=== PATIENT | female | born 1995 | race Caucasian/White ===

== ENCOUNTER → 2019-02-06 15:40 | Outpatient (CLI) | payer BC, SELFPAY ==
[2019-02-06 18:59] LABS: Chlamydia Trachomatis by PCR Negative (Negative); Neisserai gonorrhoeae by PCR Negative (Negative); Specimen Processing Control PASS
[2019-02-06 19:00] LABS: Probe Check PASS; Sample Adequacy Control PASS
[2019-02-10 17:09] LABS: HPV Reflexed? NOT INDICATED
== END ==
PROVIDERS: Visit Provider Obstetrics & Gynecology
DX: Z12.4 Encounter for screening for malignant neoplasm of cervix (principal); Z11.3 Encounter for screening for infections with a predominantly sexual mode of transmission
CPT/HCPCS: 87491; 87591; 88175; G0145

== ENCOUNTER → 2019-02-23 11:13 | Outpatient (CLI) | payer BC, SELFPAY ==
[2019-02-23 13:51] LABS: Color, Urine Yellow (Yellow); Glucose, Dipstick Normal (Normal); Ketone-Dipstick Negative (Negative); Leukocyte Esterase-Dipstick 500 /ul (Negative); Nitrite-Dipstick Negative (Negative); Occult Blood-Urine Negative /ul (Negative); Protein-Dipstick Negative (Negative); Specific Gravity, Urine 1.005 (1.002-1.030); Urine Bilirubin Dipstick Negative (Negative); Urine Clarity Sl. Cloudy (Clear); Urine Urobilinogen Normal (Normal)
[2019-02-23 13:56] LABS: Absolute Lymphocyte Count 1.79 X10^3/ul (0.83-4.51); Absolute Neutrophil Count 5.2 X10^3/uL (2.0-7.7); Basophil# 0.01 X10^3/uL; Basophil% 0.1 % (0-1); Eosinophil# 0.12 X10^3/uL; Eosinophils% 1.5 % (0-5); Hematocrit 41.7 % (37-47); Hemoglobin 14.2 g/dl (12.0-15.0); Lymphocyte # 1.79 X10^3/ul (4.0); Lymphocyte % 22.3 % (19-41); Mean Corp Hgb Conc 34.1 g/gl (32-36); Mean Corpuscular Hgb 30.8 pg (27.0-32.0); Mean Corpuscular Volume 90.5 fL (81-99); Mean Platelet Vol. 9.5 fl (6.2-12.0); Monocyte# 0.84 X10^3/uL; Monocyte% 10.5 % (0-10); Neutrophil # 5.24 X10^3/uL (2.7-7.7); Neutrophil % 65.5 % (47-70); Platelet Count 213 K/mm3 (150-450); RBC Distribution Width CV 12.2 % (11.6-14.6); RBC Distribution Width SD 39.9 fl (35.1-43.9); Red Blood Count 4.61 M/mm3 (4.2-5.4)
[2019-02-23 14:01] LABS: POSITIVE COUNT NO; POSITIVE DIFFERENTIAL NO; POSITIVE MORPHOLOGY NO
[2019-02-23 14:11] LABS: Thyroid Stim Hormone (TSH) 0.99 uIU/mL (0.358-3.74)
[2019-02-23 14:30] LABS: Amphetamine Urine VISTA NEGATIVE (<1000 ng/mL); Barbiturate Urine VISTA NEGATIVE (< 200 ng/mL); Benzodiazepine Urine VISTA NEGATIVE (< 200 ng/mL); Cocaine Urine VISTA NEGATIVE (< 300 ng/mL); Ecstacy Urine VISTA NEGATIVE (< 500 ng/mL); Methadone Urine VISTA NEGATIVE (< 300 ng/mL); PCP Urine VISTA NEGATIVE (< 25 ng/mL); THC Urine VISTA NEGATIVE (< 50 ng/mL); Vista UDS pH Range 6
[2019-02-23 14:52] LABS: HIV - WCH Non-Reactive (Nonreactive); Rubella IgG 312.3 IU/mL
[2019-02-25 12:16] LABS: HEPATITIS B SURFACE AG Negative (Negative); Hep C Antibodies <0.1 s/co ratio (0.0-0.9); V-Zoster IgG (Immunity) 150 index (Immune >165)
[2019-02-27 03:40] LABS: Prenatal RPR NONREACTIVE (NONREACTIVE)
== END ==
PROVIDERS: Visit Provider Obstetrics & Gynecology
DX: Z34.81 Encounter for supervision of other normal pregnancy, first trimester (principal)
CPT/HCPCS: 36415; 80307; 81002; 84443; 85025; 86703; 86762; 86787; 86803; 87340

== ENCOUNTER → 2019-04-09 14:26 | Outpatient (CLI) | payer BC, SELFPAY ==
[2019-04-10 10:02] LABS: Kleihauer-Betke Negative
== END ==
PROVIDERS: Visit Provider Obstetrics & Gynecology
DX: Z34.82 Encounter for supervision of other normal pregnancy, second trimester (principal)
CPT/HCPCS: 85460

== ENCOUNTER → 2019-07-14 10:57 | Outpatient (CLI) | payer BC, SELFPAY ==
[2019-07-14 13:47] LABS: Hemoglobin 11.7 g/dL (12.0-15.0); Mean Corp Hgb Conc 33.4 g/dL (32-36); Mean Corpuscular Hgb 30.8 pg (27.0-32.0); Mean Corpuscular Volume 92.1 fL (81-99); Mean Platelet Vol. 9.7 fl (6.2-12.0); Platelet Count 190 K/mm3 (150-450); RBC Distribution Width CV 12.7 % (11.6-14.6); RBC Distribution Width SD 42.5 fl (35.1-43.9); White Blood Count 10.8 K/mm3 (4.4-11.0)
[2019-07-14 13:49] LABS: Glucose Challenge Gest 1H 50g 94 mg/dL (70-140)
== END ==
PROVIDERS: Visit Provider Obstetrics & Gynecology
DX: Z34.83 Encounter for supervision of other normal pregnancy, third trimester (principal)
CPT/HCPCS: 36415; 82950; 85027; 86850

== ENCOUNTER → 2019-09-08 09:38 | Outpatient (CLI) | payer BC, SELFPAY | PROVIDERS: Referring Provider Obstetrics & Gynecology; Visit Provider Obstetrics & Gynecology | DX: Z36.85 Encounter for antenatal screening for Streptococcus B (principal) | CPT/HCPCS: 87081 ==

== ENCOUNTER 2019-09-16 04:30 | Inpatient (IN) | payer BC, SELFPAY ==
[2019-09-16] MEDS: Lactated Ringers 1,000 ML 200 ML IV ×2 (05:06→10:06)
[2019-09-16 05:08] VITALS: BMI 25.9
[2019-09-16 05:23] LABS: Absolute Lymphocyte Count 1.65 X10^3/uL (0.83-4.51); Absolute Neutrophil Count 9.9 X10^3/uL (2.0-7.7); Basophil# 0.03 X10^3/uL; Basophil% 0.2 % (0-1); Eosinophil# 0.04 X10^3/uL; Eosinophils% 0.3 % (0-5); Hematocrit 35.4 % (37-47); Hemoglobin 12.5 g/dL (12.0-15.0); Lymphocyte # 1.65 X10^3/ul (4.0); Lymphocyte % 13.2 % (19-41); Mean Corp Hgb Conc 35.3 g/dL (32-36); Mean Corpuscular Hgb 31.6 pg (27.0-32.0); Mean Corpuscular Volume 89.6 fL (81-99); Mean Platelet Vol. 9.5 fl (6.2-12.0); Monocyte# 0.85 X10^3/uL; Monocyte% 6.8 % (0-10); NRBC Flagged by Analyzer 0 % (0-5); Neutrophil # 9.89 X10^3/uL (2.7-7.7); Neutrophil % 78.9 % (47-70); Platelet Count 145 K/mm3 (150-450); RBC Distribution Width CV 12.8 % (11.6-14.6); RBC Distribution Width SD 41.7 fl (35.1-43.9); Red Blood Count 3.95 M/mm3 (4.2-5.4); White Blood Count 12.5 K/mm3 (4.4-11.0)
[2019-09-16] MEDS: Lactated Ringers 500 ML 999 ML IV (05:56)
[2019-09-16] MEDS: fentaNYL-bupivacaine (epidural) 100 ML BAG EPIDURAL (06:42)
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
[2019-09-16] MEDS: Ondansetron 4 MG/2 ML Vial IV (13:27)
[2019-09-16] MEDS: Oxytocin 30 units/NS 500 ml 30 UNITS/500 ML IV.SOLN 334 UNITS IV (14:47)
--- NOTE | 2019-09-16 16:13 | PCM.OPRPT ---
Vaginal Delivery Maternal Presentation: Active Labor Presented to unit approx 0400 c/o contractions since 1800, becoming more intense at 0200, and SROM with clear fluid at 0300 Amniotic Membrane Rupture Type: Spontaneous at home Amniotic Fluid Description: Clear Final ROXANA: 10/01/19 Final ROXANA Source: US <20 weeks Gestational age: 37 Weeks and 6 Days Date of Procedure: 09/16/19 Pre-Operative Diagnosis: Active Labor Post-Operative Diagnosis: Surgery/ Procedure Performed: Spontaneous Vaginal Delivery Type of Anesthesia: Epidural Description of Procedure: CTSP when she was c/c/+2; pushed well to +3 station, then delivered a vigorous male infant over a R mediolateral episiotomy and L 2nd degree perineal laceration; shoulders followed easily with minimal maternal effort; placed on maternal abdomen, dried, stimulated, APGARS 8/9; cord clamped x 2 by CNM and cut by FOB; placenta delivered spontaneously, Jewels mechanism, intact, 3-vessel cord, central insertion; 2nd degree R mediolateral episiotomy and L 2nd degree perineal laceration repaired with 3-0 Vicryl Rapide, good hemostasis obtained; EBL 300 Lap sponge, Raytec, and instrument counts correct x 3 with RN Presentation: Vertex, LOP Placental Delivery Description: Spontaneous Placenta Disposition: [facility] Cord Vessel Description: 3 Vessels Cord Entanglement: None A gender: Male (1 minute): 8 (5 minute): 9 Episiotomy Description: Right Mediolateral Laceration: 2nd degree
--- NOTE | 2019-09-16 16:24 | DCINST_ITS ---
Discharge Diet: No Restrictions Discharge Activity: Return to Normal Activity, May Drive, May not drive while taking narcotic pain medications., May Shower, May Take a Tub Bath Return to work on:: 10/22/19 May resume sexual activity in: 6-8 weeks Weight Bearing Status: Weight bearing as tolerated Lifting Restrictions: Nothing heavier than the baby for two weeks Additional Activity Instructions:: No cooking, cleaning, shopping or long car trips for two weeks; try to get at least 8 hours sleep in 24 hours the first two weeks - sleep when the baby sleeps Call your doctor if your incision/area has: Continuous Slow Oozing, Sudden Increased Bleeding, Increased Pain/ Swelling, Foul Smelling Discharge Call your doctor if you observe: Fever of 101 or Higher, Numbness or Tingling, Inability to urinate, Inability to have a bowel movement, Using more than one pad per hour, Shortness of breath, Dizziness, Fainting spells, Swelling in the ankles, Chest pain, Increased palpitations (irregular heartbeat), Calf discomfort, Uncontrolled pain Additional Instructions: If you experience any of the following, contact your healthcare provider. * Bleeding that soaks a pad every hour for 2 hours * Fever 100.4 or higher * Unrelieved incision or abdominal pain * Swelling, redness, discharge or bleeding from your incision or episiotomy site * Your incision begins to separate * Problems urinating (including inability to urinate or burning while urinating). * Visual changes * Severe headache * Flu-like symptoms * Pain or redness in one of both of your breasts * Pain, warmth, tenderness or swelling in your legs, especially the calf area * Frequent nausea and vomiting * Symptoms of depression or anxiety If you experience any of the following, call 911 or go to the nearest Emergency Room. * Chest pain * Problems breathing * Seizure activity * Partial or complete paralysis of a body part, slurred speech, weakness or drooping of the face, or a sudden inability to walk or hold your balance Allergies/Adverse Reactions: Allergies No Known Allergies Allergy (Verified 09/16/19 05:08) Medications to take at Discharge Escitalopram Oxalate 10 mg PO DAILY 09/16/19 Vit No.130/Iron/Folic [ Tablet] 1 tab PO DAILY 09/16/19 Please Follow Up With: Emilie Jorge CNM When: In six weeks for checkup Primary Care Physician: Care Physician,No Primary [Primary Care Provider] - Test Results: Test results from this visit will be discussed in further detail at your follow- up appointment, if applicable.
--- NOTE | 2019-09-16 17:57 | PCM.PN.BLA ---
Progress Note This is a late entry for 09/16/2019 at 1300 S: Per RN, pt comfortable with epidural, spouse bedside and supportive O: AVSS FHTs: 135 baseline, moderate variability with variable declsx 1 minute x 1,then1, then 4.5 minutes x 1,then back to baseline with minimal variability UCs: Q 5 minutes per palpation per RN, difficult to trace Cervix: 8-9/90/-1 per RN A: Active labor, normal progress Cat 2 FHTs P: O2 per FM/LR bolus/position changes as needed When pt complete RN will have pt push and contact CNM w/progress or further changes in FHTs Anticipate vaginal delivery
--- NOTE | 2019-09-16 18:00 | NURSING ---
Epidural cath removed. blue tip intact
[2019-09-16] MEDS: Ibuprofen 600 MG Tablet PO (19:41)
[2019-09-16 21:00] VITALS: BP 92/51; PULSE 68; RESP 18; TEMP 37.1
[2019-09-16 23:45] VITALS: BP 98/47; PULSE 58; RESP 18; TEMP 36.6
[2019-09-16] MEDS: Acetaminophen 500 MG Tablet 1000 MG PO (23:49)
[2019-09-16] MEDS: Dibucaine 30 GM Tube 1 APPLIC TOPICAL (23:50)
[2019-09-17 05:30] VITALS: BP 107/61; PULSE 56; RESP 18; TEMP 36.3
[2019-09-17 06:18] LABS: Hematocrit 30.4 % (37-47); Hemoglobin 10.5 g/dL (12.0-15.0); Mean Corp Hgb Conc 34.5 g/dL (32-36); Mean Corpuscular Hgb 31.8 pg (27.0-32.0); Mean Corpuscular Volume 92.1 fL (81-99); Mean Platelet Vol. 9.4 fl (6.2-12.0); Platelet Count 146 K/mm3 (150-450); RBC Distribution Width CV 13.2 % (11.6-14.6); White Blood Count 13.5 K/mm3 (4.4-11.0)
[2019-09-17 08:20] VITALS: BP 90/43; PULSE 67; RESP 16; TEMP 36.4
[2019-09-17] MEDS: Ibuprofen 600 MG Tablet PO ×2 (08:20→16:12)
[2019-09-17 12:45] VITALS: BP 102/39; PULSE 68; RESP 16; TEMP 36.8
[2019-09-17 13:30] VITALS: BP 108/67
--- NOTE | 2019-09-17 13:45 | PCM.PROGNOTE ---
Subjective: Pain well controlled, tolerating diet, passing flatus, well; denies s/s depression, has adequate support at home and aware of resources should s/s exacerbate; spouse bedside and supportive Objective: AVSS Breasts soft, nipples atraumatic Fundus firm, midline, u/2, lochia small Perineal repair well approximated, no redness, drainage; mild edema noted - Physical Exam Vitals/I&O's: Vital Signs Temp Pulse Resp BP 97.6 F L 67 16 90/43 L 09/17/19 08:20 09/17/19 08:20 09/17/19 08:20 09/17/19 08:20 Oxygen Delivery Method Room Air Weight: 165 lb 6 oz Body Mass Index (BMI) 25.9 Intake and Output for Last 24 Hours 09/15/19 09/16/19 09/17/19 23:59 23:59 23:59 Intake Total 2833.34 / 2833.34 Output Total 2099 Balance 2833.34 / 2033.34 -2099 General: Alert, Oriented x3, Cooperative, No apparent distress HEENT: PERRLA, EOMI Oral: Moist Mucosa Neck: Supple Lungs: Clear to auscultation, Normal air movement Cardiovascular: Regular rate, Regular Rhythm Abdomen: Bowel Sounds Present, Soft, Non Tender, Non-Distended, Passing Flatus Extremities: No edema, Capillary Refill Less than 3 Seconds, No Calf Tenderness Skin: No rashes Musculoskeletal: No Tenderness to Palpation of Joints or Extremities Neurological: Cranial nerves II-XII grossly intact, Deep Tendon Reflexes 2+/4 and Symmetrical, Neuro grossly intact Psych/Mental Status: Normal Affect, Appropriate, Alert and oriented to time, place, person, mood and affect Laboratory Results 09/16/19 05:06: Antibody Identification ANTI-D 09/17/19 06:05: WBC 13.5 H, RBC 3.30 L, Hgb 10.5 L, Hct 30.4 L, MCV 92.1, MCH 31.8, MCHC 34.5, RDW Std Deviation 44.0 H, RDW Coeff of Valencia 13.2, Plt Count 146 L, MPV 9.4 09/17/19 06:05: Screen NEGATIVE, Baby's Blood Type O POSITIVE, Baby's JACKIE NEGATIVE Current Medications Acetaminophen (Tylenol) 1,000 mg PO Q8H PRN PRN PRN Reason: Pain Score 1-3/10 Last Admin: 09/16/19 23:49 Dose: 1,000 mg Documented by: Bisacodyl (Dulcolax) 10 mg RECTAL UD PRN PRN Reason: If no BM Dibucaine (Dibucaine) 1 applic TOPICAL TID PRN PRN; Protocol PRN Reason: Discomfort Last Admin: 09/16/19 23:50 Dose: 1 applicatio Documented by: Hydrocortisone (Hytone) 1 applic TOPICAL TID PRN PRN; Protocol PRN Reason: Discomfort Ibuprofen (Motrin) 600 mg PO Q6H PRN PRN PRN Reason: Pain Score 1-3/10 Last Admin: 09/17/19 08:20 Dose: 600 mg Documented by: Methylergonovine Maleate (Methergine) 0.2 mg IM X1 PRN PRN Reason: Excess bleeding/uterine atony Ondansetron HCl (Zofran) 4 mg IV Q4H PRN PRN PRN Reason: Nausea Oxycodone HCl (Oxyir) 5 - 10 mg PO Q4H PRN PRN PRN Reason: Pain Score 4-10/10 Senna/Docusate Sodium (Senokot-S, Mariana-Colace) 1 - 2 tablet PO DAILY PRN PRN PRN Reason: Constipation Simethicone (Mylicon) 80 mg PO PCHS PRN PRN Reason: Indigestion/Stomach pain Sodium Chloride () 5 - 15 ml IV UD PRN PRN Reason: SALINE FLUSH Medical Necessity - Tobacco Use Smoking Status: Never smoker Assessment/Plan Assessment: 24yo G1 now P1001 delivered at 37w6d gestation by L=8w4d PP Day #1, normal involution, normal course Depression well controlled, pt and family well informed as to s/s exacerbations an appropriate response Plan: Discharge teaching completed, focus on self care, warning signs, sarah. of depression Discharge home 24 hours p/delivery if remains stable RTO 6 weeks for PP checkup
[2019-09-17] MEDS: Senna/Docusate Sodium 1 Tablet PO (16:12)
[2019-09-17 17:00] VITALS: BP 92/68; PULSE 66; RESP 16; TEMP 36.4
== END 2019-09-17 18:25 | disposition home or self-care (01) | DRG 805 ==
PROVIDERS: Obstetrics & Gynecology; Admitting Provider Advanced Practice Midwife; Referring Provider Advanced Practice Midwife; Visit Provider Advanced Practice Midwife
DX: O70.1 Second degree perineal laceration during delivery (principal); O60.14X0 Preterm labor third trimester with preterm delivery third trimester, not applicable or unspecified; Z37.0 Single live birth; Z3A.37 37 weeks gestation of pregnancy; F32.9 Major depressive disorder, single episode, unspecified; O99.344 Other mental disorders complicating childbirth; F41.9 Anxiety disorder, unspecified
CPT/HCPCS: 59025; 59050; 85025; 85027; 85461; 86850; 86870; 86900; 86901; 90384; 99218; J7120; G0378; J2405; J2790

== ENCOUNTER → 2020-12-09 09:21 | Outpatient (CLI) | payer BC, SELFPAY ==
[2020-12-12 16:08] LABS: Chlamydia By Nucleic Acid AMP Negative (Negative)
[2020-12-12 18:01] LABS: Gonococcus By Nucleic Acid AMP Negative (Negative)
== END ==
PROVIDERS: Visit Provider Student in an Organized Health Care Education/Training Program
DX: Z11.3 Encounter for screening for infections with a predominantly sexual mode of transmission (principal)
CPT/HCPCS: 87491; 87591

== ENCOUNTER → 2021-01-12 13:46 | Outpatient (CLI) | payer BC, SELFPAY ==
[2021-01-12 16:32] LABS: Absolute Lymphocyte Count 3.15 X10^3/uL (0.83-4.51); Absolute Neutrophil Count 5.8 X10^3/uL (2.0-7.7); Basophil# 0.03 X10^3/uL; Basophil% 0.3 % (0-1); Eosinophil# 0.18 X10^3/uL; Eosinophils% 1.9 % (0-5); Hematocrit 36.9 % (37-47); Hemoglobin 13.1 g/dL (12.0-15.0); Lymphocyte # 3.15 X10^3/ul (4.0); Lymphocyte % 32.8 % (19-41); Mean Corp Hgb Conc 35.5 g/dL (32-36); Mean Corpuscular Hgb 32.3 pg (27.0-32.0); Mean Corpuscular Volume 90.9 fL (81-99); Mean Platelet Vol. 10.3 fl (6.2-12.0); Monocyte# 0.46 X10^3/uL; Monocyte% 4.8 % (0-10); NRBC Flagged by Analyzer 0 % (0-5); Neutrophil # 5.77 X10^3/uL (2.7-7.7); Platelet Count 245 K/mm3 (150-450); RBC Distribution Width CV 11.9 % (11.6-14.6); RBC Distribution Width SD 39.4 fl (35.1-43.9); Red Blood Count 4.06 M/mm3 (4.2-5.4); White Blood Count 9.6 K/mm3 (4.4-11.0)
[2021-01-12 16:50] LABS: Color, Urine Yellow (Yellow); Glucose, Dipstick Normal (Normal); Ketone-Dipstick Negative (Negative); Leukocyte Esterase-Dipstick 500 /ul (Negative); Nitrite-Dipstick Negative (Negative); Occult Blood-Urine Negative /ul (Negative); Protein-Dipstick Negative (Negative); Urine Bilirubin Dipstick Negative (Negative); Urine Clarity Clear (Clear); Urine Urobilinogen Normal (Normal)
[2021-01-12 16:55] LABS: Thyroid Stim Hormone (TSH) 0.81 uIU/mL (0.358-3.74)
[2021-01-13 09:36] LABS: HIV - WCH Non-Reactive (Nonreactive); Hepatitis B Surface Antigen Non-Reactive (Nonreactive); Hepatitis C Antibody Non-Reactive (Nonreactive); Rubella IgG Reactive (Nonreactive); Syphilis Antibodies Non-reactive
== END ==
PROVIDERS: Visit Provider Obstetrics & Gynecology
DX: Z34.81 Encounter for supervision of other normal pregnancy, first trimester (principal)
CPT/HCPCS: 36415; 81002; 84443; 85025; 86703; 86762; 86780; 86803; 87340

== ENCOUNTER → 2021-05-23 09:09 | Outpatient (CLI) | payer BC, SELFPAY ==
[2021-05-23 11:07] LABS: Hematocrit 34.7 % (37-47); Hemoglobin 11.7 g/dL (12.0-15.0); Mean Corp Hgb Conc 33.7 g/dL (32-36); Mean Corpuscular Hgb 31.2 pg (27.0-32.0); Mean Corpuscular Volume 92.5 fL (81-99); Mean Platelet Vol. 9.5 fl (6.2-12.0); Platelet Count 174 K/mm3 (150-450); RBC Distribution Width CV 12.8 % (11.6-14.6); RBC Distribution Width SD 42.9 fl (35.1-43.9); Red Blood Count 3.75 M/mm3 (4.2-5.4); White Blood Count 9.3 K/mm3 (4.4-11.0)
[2021-05-23 11:12] LABS: Glucose Challenge Gest 1H 50g 75 mg/dL (70-140)
== END ==
PROVIDERS: Visit Provider Obstetrics & Gynecology
DX: Z34.82 Encounter for supervision of other normal pregnancy, second trimester (principal)
CPT/HCPCS: 36415; 82950; 85027; 86850

== ENCOUNTER → 2021-07-10 12:26 | Outpatient (CLI) | payer BC, SELFPAY ==
--- NOTE | 2021-07-10 12:29 | VDLE_ITS ---
Reason For Study: Calf pain, 34 weeks RIGHT GSV is normal. CFV is compressible, spontaneous, phasic, competent and demonstrates normal augmentation. FV is compressible, spontaneous, phasic, competent and demonstrates normal augmentation. POP V is compressible, spontaneous, phasic, competent and demonstrates normal augmentation. T/P Trunk is compressible. PTV is compressible. RT PerV is compressible. Procedure This is a venous duplex using B-mode, color flow and spectral Doppler. Exam performed in department. A preliminary report was called and/or faxed to [facility]. VL/Venous Duplex US, Unilateral Interpretation Summary There is no evidence of right lower extremity deep vein thrombosis. Right great saphenous vein appears patent and compressible segmentally. Ordering Physician: Greg Landry Referring Physician: MD Fredy Nix Performed By: Marlyn Multani RVT
== END ==
PROVIDERS: PCP Family Medicine; Referring Provider Obstetrics & Gynecology; Visit Provider Obstetrics & Gynecology
DX: O26.893 Other specified pregnancy related conditions, third trimester (principal); M79.661 Pain in right lower leg; Z3A.34 34 weeks gestation of pregnancy
CPT/HCPCS: 93971

== ENCOUNTER → 2021-07-25 09:14 | Outpatient (CLI) | payer BC, SELFPAY | LOC: LABSPEC 09:15 | PROVIDERS: PCP Family Medicine; Visit Provider Student in an Organized Health Care Education/Training Program | DX: Z36.85 Encounter for antenatal screening for Streptococcus B (principal) | CPT/HCPCS: 87081 ==

== ENCOUNTER 2021-08-09 20:45 | Inpatient (IN) | payer BC, SELFPAY ==
[2021-08-09] VITALS (22 sets, daily range): BP systolic 105–157; BP diastolic 56–82; PULSE 56–84; TEMP 36.6–36.9; O2SAT 96–100; BMI 24.2
[2021-08-09] MEDS: Lactated Ringers 500 ML 999 ML IV (21:05)
[2021-08-09 21:09] LABS: Absolute Lymphocyte Count 2.53 X10^3/uL (0.83-4.51); Absolute Neutrophil Count 8.1 X10^3/uL (2.0-7.7); Basophil# 0.02 X10^3/uL; Basophil% 0.2 % (0-1); Eosinophil# 0.03 X10^3/uL; Eosinophils% 0.3 % (0-5); Hematocrit 35.8 % (37-47); Hemoglobin 12.6 g/dL (12.0-15.0); Lymphocyte # 2.53 X10^3/ul (0.83-4.51); Lymphocyte % 22.1 % (19-41); Mean Corp Hgb Conc 35.2 g/dL (32-36); Mean Corpuscular Hgb 31.6 pg (27.0-32.0); Mean Corpuscular Volume 89.7 fL (81-99); Mean Platelet Vol. 9.6 fl (6.2-12.0); Monocyte# 0.69 X10^3/uL; NRBC Flagged by Analyzer 0 % (0-5); Neutrophil # 8.09 X10^3/uL (2.7-7.7); Neutrophil % 70.8 % (47-70); Platelet Count 162 K/mm3 (150-450); RBC Distribution Width CV 12.9 % (11.6-14.6); RBC Distribution Width SD 42.1 fl (35.1-43.9); Red Blood Count 3.99 M/mm3 (4.2-5.4); White Blood Count 11.4 K/mm3 (4.4-11.0)
[2021-08-09] MEDS: Lactated Ringers 1,000 ML 50 ML IV (21:36)
--- NOTE | 2021-08-09 21:40 | HP.PCM_ITS ---
History and Physical Date of Admission: 08/09/21 ACOG ANTEPARTUM RECORD - HISTORY AND PHYSICAL (08/09/2021) Name: NICHOLE MONTEIRO History of this : This is a 26 year old [id number] presents at 39 wks + 0 days gestation in active labor. OB Physician: Blanca Haji 's Physician: Graham Beyer ...................................................................... : 1995 Age: 26 [address]: [address] [place] [address] Phone: H) [phone] Insurance Carrier: [employer] [id number] Emergency Contact: YARELIS DANE [phone] ...................................................................... Final ROXANA: 08/16/21 By Ultrasound: 6 weeks 0 days PARITY: (G-Total Pregnancies P-Fullterm,Premature,Induced AB,Spont AB, Ectopics, Multiple,Living) ROXANA CONFIRMATION: By LMP: 10/04/21 By First Ultrasound Exam: 08/16/21 Final ROXANA: 08/16/21 OB PROBLEM LIST: Declines genetic and carrier screening Left renal pelviectasis , Resolved O-NEG Plans epidural. Plans to breastfeed. Takes Lexapro. Hx anxiety/depression. Watch for PPD. ALLERGIES: No Known Drug Allergies MEDICATIONS: escitalopram 10 mg tablet 1 daily ondansetron 4 mg disintegrating tablet As Directed 1 tab po Q 6 hours PRN nausea 28 mg-800 mcg tablet daily SOCIAL HISTORY: Smoking - Never Alcohol Use - denies drinking Diet - balanced Diet Lifestyle - moderate stress lifestyle and Exercise - Reg. 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 Place of - [place], [place] Hours Worked - 45-50 Spouse-Sig Other Name - Yarelis Monteiro Spouse-Sig Other Occupation - [employer]- [employer] sales. Spouse-Sig Other Phone No - [phone] Children Name(s) - Angelo ('19) PRIOR DELIVERY HISTORY DEL DATE GEST LAB WT LB WT OZ TYPE ANES LABOR TX 27 Sep 08 37 12 7 2 Vag Epidural No ANTEPARTUM FLOW CHART VISIT RTC FU F F CT U U DATE WK MD WKS HT PN HR M SS BP ED WT CT GL D EF ST __ ____ ___ __ __ ___ __ __ __ ___ __ __ __ ___ __ Jul JMW 1 37 V + + 124/78 0 159 - - 4 75 -2 12 Jul JM 1 37 V + + 110/74 0 158 - - 05 Jul 36 CM 1 36 V + + 104/62 0 160 - - 28 Jun 35 JM 1 35 V + + 104/68 0 159 - - 14 Jun 33 JM 2 33 V + + 118/62 0 160 ne ne Jun 20 JM + 112/58 0 156 ne ne 17 Jun 18 JM 3 + 94/58 0 156 - - 03 Jun 16 JM 2 27 - + + 110/60 0 155 ne ne May 12 JM 4 23 - + + 110/58 0 156 - - 09 Apr 09 JMW 4 20 + + 104/62 0 152 ne ne March 05 JMW 3 16 + ? 110/66 0 150 - - 15 Jan 30 JMW 4 12 + ? 114/64 0 149 - - 25 Dec 27 JMW 4 + US 102/64 0 144 - - 03 Dec 24 JMW 4 U+ 106/64 0 146 ne ne Nov 30 JMW 1 106/64 0 144 ne ne ANTEPARTUM NOTE(S): Aug 08 2021: Ctxs-occas, Good FM Aug 01 2021: decreased FM, NST reactive Jul 25 2021: feeling well. GBS and LARC today. AM Jul 18 2021: feeling well. AM Jul 04 2021: no No problems Jun 19 2021: no complaints Jun 06 2021: doing well, follow up u/s today May 23 2021: GCT/labs today, Needs Rhogam today Apr 25 2021: Glucola/Instructions Given,Good FM,Feeling Well Mar 29 2021: US today Mar 01 2021: Declines AFP, CF, Quickening Noted Feb 02 2021: Nausea/Fatigue slightly better,Periodic SOB Jan 12 2021: Sono Today, Nausea Continues Dec 21 2020: US & genetic packet today, labs for next visit Dec 14 2020: US today, viable?; repeat u/s 1 week COMPREHENSIVE ANTEPARTUM NOTE(S): REVIEW OF SYSTEMS: GENERAL - Denies fever, or chills SKIN - Denies rash, new skin lesions, or change in moles EYES - Denies blurred vision, or change in visual acuity EARS - Denies ear pain, or difficulty hearing NOSE - Denies nasal congestion, discharge, or bleeding MOUTH - Denies sore throat, or difficulty swallowing NECK - Denies pain or swelling RESPIRATORY - Denies shortness of breath, cough, wheezing CARDIOVASCULAR - Denies palpitations, chest pain, orthopnea, PND, peripheral edema, syncope or claudication GASTROINTESTINAL - Denies nausea, vomiting, diarrhea, constipation, Denies abdominal pain, melena and or bright red blood GENITOURINARY - Denies dysuria, frequency of urination, urgency, or hesitancy MUSCULOSKELETAL - Denies joint or muscle pain, or back pain NEUROLOGICAL - Denies localized numbness, weakness, or tingling PSYCHIATRIC - Denies depression, anxiety, substance abuse or suicide attempts ENDOCRINE - Denies heat or cold intolerance, weight loss or gain, increasing thirst HEMATO-IMMUNOLOGIC - Denies easy bruising, bleeding, oral ulcerations or recurrent infections GENETICS SCREENING: Age 35+ years: No Thalassemia: No Neural Tube Defect: No Down Syndrome: No MOMO-SACHS: No Sickle Cell Disease: No Hemophilia: No Musc. Dystrophy: No Cystic Fibrosis: No-declines screening [place] Chorea: No Mental Retardation: No Fragile X: No Other genetic: No Other defects: No SABs/still births: No Drugs since LMP: Yes INFECTION HISTORY: High risk AIDS: No High risk Hepatitis: No Exposed to TB: No Exposed to Herpes: No Rash/viral illness since LMP: No History of STD: No MENSTRUAL HISTORY: *Menses Amount/Duration: 5 daysMenses Regularity: RegularMenarche (Age Onset): 13* PAST SUMMARY: PARITY: 1. Total Pregnancies............ 2 2. Full Term Pregnancies........ 1 3. Premature.................... 0 4. Abortions - Induced.......... 0 5. Abortions - Spontaneous...... 0 6. Ectopics..................... 0 7. Multiple Births.............. 0 8. Living Children.............. 1 PAST #1: Date of :.................. 09/16/19 Gestation Weeks:................ 37 Length of labor(hours):......... 12 Sex:............................ M Weight-lbs:............... 7 Weight-oz:................ 2 Type of Delivery:............... Vag Type of Anesthesia:............. Epidural Place of Delivery:.............. [facility] Treatment of Labor?:.... No Comment: PHYSICAL EXAMINATION General Appearence: 26 yo female in no acute distress Vital Signs: AF, VSS Heart: RRR without rubs or gallops Lungs: CTA x 2 Breasts: deferred Abdomen: gravid Pelvis: Cervix: Presentation: cephalic Station: Fetus: Size: AGA Movement: present Heart: present LAB TEST(S) ORDERED SINCE:11/19/20 08/09/2021 CBC W/DIFF, AUTOMATED 07/28/2021 RULE OUT BETA STREP (GRP. B) 05/23/2021 GLUCOSE CHALLENGE GEST 1H 50G 05/23/2021 CBC-COMPLETE BLOOD CNT NO DIFF 05/23/2021 [id number] 01/13/2021 RUBELLA IGG 01/13/2021 L509.8000 01/13/2021 HIV - [facility] 01/13/2021 HEPATITIS C ANTIBODY 01/13/2021 HEPATITIS B SURFACE ANTIGEN 01/12/2021 URINALYSIS, ROUTINE (DIPSTICK) 01/12/2021 THYROID STIM HORMONE (TSH) 01/12/2021 T AND S-NO CHARGE W/PNP 01/12/2021 CBC W/DIFF, AUTOMATED 12/12/2020 CHLAMYDIA/GC ARIAS APTIMA == ==== Order Observation Description Value Ref_Range A* Site == ==== CBC W/DIFF, AUT NOTE CHEN CBC W/DIFF, AUT WBC 11.4 K/mm3 4.4-11.0 H ML CBC W/DIFF, AUT RBC 3.99 M/mm3 4.2-5.4 L ML CBC W/DIFF, AUT HGB 12.6 g/dL 12.0-15.0 ML CBC W/DIFF, AUT HCT 35.8 37-47 L ML CBC W/DIFF, AUT MCV 89.7 fL 81-99 ML CBC W/DIFF, AUT MCH 31.6 pg 27.0-32.0 ML CBC W/DIFF, AUT MCHC 35.2 g/dL 32-36 ML CBC W/DIFF, AUT RDW CV 12.9 11.6-14.6 ML CBC W/DIFF, AUT RDW SD 42.1 fl 35.1-43.9 ML CBC W/DIFF, AUT PLT 162 K/mm3 150-450 ML CBC W/DIFF, AUT MPV 9.6 fl 6.2-12.0 ML CBC W/DIFF, AUT NEUT% 70.8 47-70 H ML CBC W/DIFF, AUT LY% 22.1 19-41 ML CBC W/DIFF, AUT MONO% 6.0 0-10 ML CBC W/DIFF, AUT EO% 0.3 0-5 ML CBC W/DIFF, AUT BASO% 0.2 0-1 ML CBC W/DIFF, AUT IG% 0.600 0.0-0.9 ML IG% - Immature Granulocytes (promyelocytes, myelocytes and metamyelocytes) > 1% indicates that a LEFT SHIFT is Present. CBC W/DIFF, AUT ABSOLUTE NEUT 8.1 X10 3/uL 2.0-7.7 H ML CBC W/DIFF, AUT ABSOLUTE LYMPH 2.53 X10 3/uL 0.83-4.51 ML CBC W/DIFF, AUT NUCLEATED RBC 0 0-5 ML RULE OUT BETA S NOTE CHEN [facility]~[address] [place], [place], [address]~ [id number] AB SCREEN GEL NEGATIVE ML GLUCOSE CHALLEN NOTE CHEN GLUCOSE CHALLEN GLU GEST 50G 1H 75 mg/dL 70-140 ML CBC-COMPLETE BL NOTE CHEN CBC-COMPLETE BL WBC 9.3 K/mm3 4.4-11.0 ML CBC-COMPLETE BL RBC 3.75 M/mm3 4.2-5.4 L ML CBC-COMPLETE BL HGB 11.7 g/dL 12.0-15.0 L ML CBC-COMPLETE BL HCT 34.7 37-47 L ML CBC-COMPLETE BL MCV 92.5 fL 81-99 ML CBC-COMPLETE BL MCH 31.2 pg 27.0-32.0 ML CBC-COMPLETE BL MCHC 33.7 g/dL 32-36 ML CBC-COMPLETE BL RDW CV 12.8 11.6-14.6 ML CBC-COMPLETE BL RDW SD 42.9 fl 35.1-43.9 ML CBC-COMPLETE BL PLT 174 K/mm3 150-450 ML CBC-COMPLETE BL MPV 9.5 fl 6.2-12.0 ML HEPATITIS C ANT NOTE CHEN HEPATITIS C ANT HEPATITIS C AB Non-Reactive Nonreactive ML Non Reactive: < 0.8 Equivocal: >/= 0.8 to < 1.0 Reactive: >/= 1.0 The CDC recommends that a reactive/equivocal HCV antibody result be followed up by the HCV Nucleic Acid Amplification test ([id number]) HEPATITIS B SILVIA NOTE CHEN HEPATITIS B SILVIA HEP B SURF AG Non-Reactive Nonreactive ML HIV - WC NOTE CHEN HIV - [facility] HIV Non-Reactive Nonreactive ML L509.8000 NOTE CHEN L509.8000 SYPHILIS ABS Non-reactive ML RUBELLA IGG NOTE CHEN RUBELLA IGG RUBELLA IGG Reactive Nonreactive ML Antibody Results Interpretation of Immune Status Non Reactive Presumed Non-Immune Equivocal Equivocal Reactive Presumed Immune PN N [facility]~[address] [place], [address]~ T AND AB SCREEN GEL NEGATIVE ML THYROID STIM HO NOTE CHEN THYROID STIM HO TSH 0.81 uIU/mL 0.358-3.74 ML URINALYSIS, ROU NOTE CHEN URINALYSIS, ROU COLOR Yellow Yellow ML URINALYSIS, ROU URINE CLARITY Clear Clear ML URINALYSIS, ROU GLUCOSE, UR Normal mg/dl Normal ML URINALYSIS, ROU BILIRUBIN URINE Negative mg/dL Negative ML URINALYSIS, ROU KETONE UR Negative mg/dl Negative ML URINALYSIS, ROU SP.GR. DIPSTX 1.010 1.002-1.030 ML URINALYSIS, ROU PH UR 7.0 5.0 - 8.0 ML URINALYSIS, ROU PROT DIPSTX Negative mg/dl Negative ML URINALYSIS, ROU UROBILI Normal mg/dl Normal ML URINALYSIS, ROU NITRITE Negative Negative ML URINALYSIS, ROU OCCULT BLOOD-UR Negative /ul Negative ML URINALYSIS, ROU LEUK ESTERASE 500 /ul Negative A ML CBC W/DIFF, AUT NOTE CHEN CBC W/DIFF, AUT WBC 9.6 K/mm3 4.4-11.0 ML CBC W/DIFF, AUT RBC 4.06 M/mm3 4.2-5.4 L ML CBC W/DIFF, AUT HGB 13.1 g/dL 12.0-15.0 ML CBC W/DIFF, AUT HCT 36.9 37-47 L ML CBC W/DIFF, AUT MCV 90.9 fL 81-99 ML CBC W/DIFF, AUT MCH 32.3 pg 27.0-32.0 H ML CBC W/DIFF, AUT MCHC 35.5 g/dL 32-36 ML CBC W/DIFF, AUT RDW CV 11.9 11.6-14.6 ML CBC W/DIFF, AUT RDW SD 39.4 fl 35.1-43.9 ML CBC W/DIFF, AUT PLT 245 K/mm3 150-450 ML CBC W/DIFF, AUT MPV 10.3 fl 6.2-12.0 ML CBC W/DIFF, AUT NEUT% 60.0 47-70 ML CBC W/DIFF, AUT LY% 32.8 19-41 ML CBC W/DIFF, AUT MONO% 4.8 0-10 ML CBC W/DIFF, AUT EO% 1.9 0-5 ML CBC W/DIFF, AUT BASO% 0.3 0-1 ML CBC W/DIFF, AUT IG% 0.200 0.0-0.9 ML IG% - Immature Granulocytes (promyelocytes, myelocytes and metamyelocytes) > 1% indicates that a LEFT SHIFT is Present. CBC W/DIFF, AUT ABSOLUTE NEUT 5.8 X10 3/uL 2.0-7.7 ML CBC W/DIFF, AUT ABSOLUTE LYMPH 3.15 X10 3/uL 0.83-4.51 ML CBC W/DIFF, AUT NUCLEATED RBC 0 0-5 ML CHLAMYDIA/GC NA NOTE CHEN CHLAMYDIA/GC NA CHLAMY,NUC ACID Negative Negative LCI CHLAMYDIA/GC NA GC BY NUC ACID Negative Negative LCI Performed at: = - [facility] [id number] Route Delivery Supervisor: Ashlyn Lopez MD, Phone: [phone] Group B Beta Streptococcus is not isolated. [facility] [address] [place] [id number] Venous Duplex US, Unilateral 07/10/21 1253 MR#: [id number] Acct: [id number] Name: NICHOLE MONTEIRO Rep #: [id number] : 1995 26 From: Richard Acosta MD Attending Dr: Dr. Greg Landry MD Status: REG CLI Ordering Dr: Greg Landry MD Date: 07/10/21 Location: [facility] Sex: F C Admitted: Reason For Study: Calf pain, 34 weeks RIGHT GSV is normal. CFV is compressible, spontaneous, phasic, competent and demonstrates normal augmentation. FV is compressible, spontaneous, phasic, competent and demonstrates normal augmentation. POP V is compressible, spontaneous, phasic, competent and demonstrates normal augmentation. T/P Trunk is compressible. PTV is compressible. RT PerV is compressible. Procedure This is a venous duplex using B-mode, color flow and spectral Doppler. Exam performed in department. A preliminary report was called and/or faxed to [facility]. VL/Venous Duplex US, Unilateral Interpretation Summary There is no evidence of right lower extremity deep vein thrombosis. Right great saphenous vein appears patent and compressible segmentally. _ Ordering Physician: Greg Landry Referring Physician: MD Fredy Nix Performed By: Marlyn Multani RVT 07/10/21 1304 Date Richard Acosta MD CC: Dr. Greg Landry MD; Dr. 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 Preparations in progress for delivery.
[2021-08-09] MEDS: fentaNYL-bupivacaine (epidural) 100 ML BAG EPIDURAL (21:47)
[2021-08-09] MEDS: Oxytocin 30 units/NS 500 ml 30 UNITS/500 ML IV.SOLN 334 UNITS IV (22:32)
--- NOTE | 2021-08-09 22:44 | EX.PCM.OBRPT ---
Maternal Data Information Final ROXANA: 08/16/21 Final ROXANA Source: US <20 weeks Gestational age: 39.0weeks Vaginal Delivery Maternal Presentation Maternal Presentation: Active Labor Operative Information Date of Procedure: 08/09/21 Pre-Operative Diagnosis: IUP Post-Operative Diagnosis: IUP Surgery / Procedure Performed: Spontaneous Vaginal Delivery Type of Anesthesia: Epidural Estimated Blood Loss: 250 cc Findings Description of Procedure: Spontaneous vaginal delivery of a viable male infant with Apgars of 9/9 from an occiput anterior presentation with clear amniotic fluid and normal three-vessel placenta. No episiotomy. First-degree midline laceration repaired with 3-0 Rapide suture under epidural. Sponges okay. Delivery physician: Fredy Pierce MD. Presentation: Vertex Amniotic Membrane Rupture Type: Artificial Amniotic Fluid Description: Clear Placental Delivery Description: Spontaneous Placenta Disposition: [facility] Cord Vessel Description: 3 Vessels Cord Entanglement: None Infant A Gender: Male (1 minute): 9 (5 minute): 9 Post Vaginal Delivery Medications Given After Delivery: IV Pitocin Episiotomy Description: None Laceration: Midline and 1st degree Complication Complications: None
--- NOTE | 2021-08-09 22:48 | PCM.DC ---
Discharge Instructions Diet Discharge Diet: No restrictions Activity Discharge Activity: May Drive (In 1 to 2 days if not taking narcotic pain medication), May Shower and May Take a Tub Bath May resume sexual activity in: 4-6 weeks Additional Activity Instructions:: Nothing in the vagina for 4-6 weeks. You may return to work/school in 6 weeks. Dressing / Incision Call your doctor if you observe: Fever of 101 or Higher, Inability to urinate, Inability to have a bowel movement and Using more than 1 pad per hour Follow Up Care Please Follow Up With: Blanca Landry DO When: Call [phone] to make an appointment with your doctor in 6 weeks. Test Results: Test results from this visit will be discussed in further detail at your follow-up appointment, if applicable. Discharge Plan Admission Admit Date/Time: 08/09/21 20:45 Primary Reason for Your Visit: Vaginal Delivery Attending Provider: Fredy Pierce Primary Care Provider: Fredy Villafana Instructions Patient Instructions: After a Vaginal Additional Instructions / Restrictions: Normal activity. Weightbearing as tolerated. Regular diet. No intercourse for 4 to 6 weeks. Call if fever 101, chest pain, shortness of breath, malodorous discharge. Follow-up in 2 weeks telehealth visit, 4 to 6 weeks visit Discharge Orders/Prescriptions Prescriptions: No Action vit no.[id number] 1 EACH tablet 1 tab PO DAILY RF: 0 Referrals / Follow Up: Fredy Villafana MD [Primary Care Provider] - Disposition Disposition (needs filled in before D/C Order can be placed): Home, Self Care
[2021-08-09] MEDS: Acetaminophen 500 MG Tablet 1000 MG PO (23:46)
[2021-08-10] VITALS (9 sets, daily range): BP systolic 91–126; BP diastolic 49–78; PULSE 59–71; RESP 16; TEMP 36.1–37.1; O2SAT 96–97
--- NOTE | 2021-08-10 01:10 | NURSING ---
Report received from Noa LAMBERT, taking over pt care at this time.
--- NOTE | 2021-08-10 03:09 | NURSING ---
Pt unsure if received flu vaccine this year.
[2021-08-10] MEDS: Acetaminophen 500 MG Tablet 1000 MG PO ×2 (08:36→17:24)
--- NOTE | 2021-08-10 08:36 | PCM.PN.OB ---
Subjective Subjective No overnight complaints. Pain well controlled. Objective Data Objective Data Vital Signs: Vital Signs Temp Pulse Resp BP Pulse Ox 98.3 F 66 16 91/49 L 96 08/10/21 03:50 08/10/21 03:50 08/10/21 03:50 08/10/21 03:50 08/10/21 03:50 Oxygen Delivery Method Room Air Weight: 154 lb 12.8 oz Body Mass Index (BMI) 24.2 Intake & Output: Intake and Output for Last 24 Hours 08/08/21 08/09/21 08/10/21 23:59 23:59 23:59 Intake Total 715.07 / 715.07 327.43 / 327.43 Output Total 250 / 250 Balance 715.07 / 715.07 77.43 / 77.43 Lab / Micro Data Result Diagrams: 08/09/21 20:55 Labs: Laboratory Results - last 24 hr 08/09/21 20:55: WBC 11.4 H, RBC 3.99 L, Hgb 12.6, Hct 35.8 L, MCV 89.7, MCH 31.6, MCHC 35.2, RDW Std Deviation 42.1, RDW Coeff of Valencia 12.9, Plt Count 162, MPV 9.6, Immature Gran % (Auto) 0.600, Neut % (Auto) 70.8 H, Lymph % (Auto) 22.1, Arroyo % (Auto) 6.0, Eos % (Auto) 0.3, Baso % (Auto) 0.2, Absolute Neuts (auto) 8.1 H, Absolute Lymphs (auto) 2.53, Nucleated RBC % 0 08/09/21 20:55: Blood Type O NEGATIVE, Antibody Screen TNP 08/09/21 20:55: Antibody Screen NEGATIVE 08/10/21 03:53: Screen NEGATIVE, Baby's Blood Type O POSITIVE, Baby's JACKIE NEGATIVE Physical Exam Const alert, oriented x3, no apparent distress and average body habitus HEENT normocephalic and moist oral mucous membranes Head and Scalp: atraumatic Face and Sinus: normal facial exam Eyes PERRL Neck full ROM Resp normal respiratory effort, no retractions and no use of accessory muscles Extremity normal to inspection, full ROM and no clubbing, cyanosis or edema Skin no rashes or lesions noted Psych mental status grossly normal, affect normal, speech normal and activity/motor behavior normal Assessment & Plan (1) Vaginal delivery: PLAN: day 1. Breast-feeding. Pain well controlled. Likely home tomorrow
[2021-08-10] MEDS: Ibuprofen 600 MG Tablet PO (20:14)
[2021-08-11 05:30] VITALS: BP 95/57; PULSE 63; RESP 16; TEMP 36.4; O2SAT 96
--- NOTE | 2021-08-11 08:39 | PCM.DC.BLA ---
Discharge Summary Date of Admission: 08/09/21 Date of Discharge: 08/11/21 Summary: Patient arrived on 08/09/2021 in labor. Spontaneous vaginal delivery on 08/09/2021. Normal recovery. Discharge home on 08/11/2021 Physical Exam Const alert, oriented x3, no apparent distress, average body habitus, no limitations and healthy appearing Eyes PERRL Neck full ROM Resp normal respiratory effort, normal air movement, no retractions and no use of accessory muscles Psych mental status grossly normal, thought process normal, cooperative, affect normal and speech normal Meaningful Use Info Meaningful Use Diagnoses (Choose all that apply): None applicable Discharge Plan Admission Admit Date/Time: 08/09/21 20:45 Primary Reason for Your Visit: Vaginal Delivery Attending Provider: Fredy Pierce Primary Care Provider: Fredy Villafana Instructions Additional Instructions / Restrictions: Normal activity. Weightbearing as tolerated. Regular diet. No intercourse for 4 to 6 weeks. Call if fever 101, chest pain, shortness of breath, malodorous discharge. Follow-up in 2 weeks telehealth visit, 4 to 6 weeks visit Discharge Orders/Prescriptions Prescriptions: No Action vit no.[id number] 1 EACH tablet 1 tab PO DAILY RF: 0 Referrals / Follow Up: Fredy Villafana MD [Primary Care Provider] - Disposition Disposition (needs filled in before D/C Order can be placed): Home, Self Care
--- NOTE | 2021-08-11 08:42 | PCM.PN.OB ---
Subjective Subjective no overnight complaints. Pain well controlled Objective Data Objective Data Vital Signs: Vital Signs Temp Pulse Resp BP Pulse Ox 97.6 F L 63 16 95/57 L 96 08/11/21 05:30 08/11/21 05:30 08/11/21 05:30 08/11/21 05:30 08/11/21 05:30 Oxygen Delivery Method Room Air Weight: 154 lb 12.8 oz Body Mass Index (BMI) 24.2 Intake & Output: Intake and Output for Last 24 Hours 08/09/21 08/10/21 08/11/21 23:59 23:59 23:59 Intake Total 715.07 / 715.07 327.43 / 327.43 Output Total 250 / 250 Balance 715.07 / 715.07 77.43 / 77.43 Lab / Micro Data Result Diagrams: 08/09/21 20:55 Physical Exam Const alert, oriented x3, no apparent distress, average body habitus, healthy appearing and well nourished HEENT normocephalic and moist oral mucous membranes Head and Scalp: atraumatic Face and Sinus: normal facial exam Eyes PERRL Neck full ROM Resp normal respiratory effort, no retractions and no use of accessory muscles Psych mental status grossly normal, affect normal, speech normal and activity/motor behavior normal Assessment & Plan (1) Vaginal delivery: PLAN: day 2. Breast-feeding. Okay to discharge home today
[2021-08-11 08:45] VITALS: BP 96/54; PULSE 66; RESP 16; TEMP 36.8
[2021-08-11 13:46] VITALS: BP 88/55; PULSE 62; RESP 16; TEMP 36.8
== END 2021-08-11 15:00 | disposition home or self-care (01) | DRG 776 ==
LOC: WPOUT 20:45 → WP 20:45
PROVIDERS: Admitting Provider Obstetrics & Gynecology; PCP Family Medicine; Visit Provider Obstetrics & Gynecology
DX: O70.0 First degree perineal laceration during delivery (principal); O99.344 Other mental disorders complicating childbirth; F32.A Depression, unspecified; F41.9 Anxiety disorder, unspecified; Z3A.39 39 weeks gestation of pregnancy; Z37.0 Single live birth
CPT/HCPCS: 59025; 59050; 85025; 85461; 86850; 86900; 86901; 90384; 99218; J7120; G0378; J2790

== ENCOUNTER → 2022-03-23 | Outpatient (CLI) | payer BC, SELFPAY ==
[2022-03-27 16:33] LABS: HPV Reflexed? NOT INDICATED
== END | disposition home or self-care (01) ==
LOC: LABSPEC 09:24
PROVIDERS: PCP Family Medicine; Visit Provider Student in an Organized Health Care Education/Training Program
DX: Z12.4 Encounter for screening for malignant neoplasm of cervix (principal)
CPT/HCPCS: 88175; G0145

== ENCOUNTER → 2024-10-02 | Outpatient (CLI) | payer BC, SELFPAY ==
[2024-10-02 10:23] LABS: Absolute Lymphocyte Count 2.23 X10^3/uL (0.83-4.51); Absolute Neutrophil Count 4.7 X10^3/uL (2.0-7.7); Basophil# 0.02 X10^3/uL; Basophil% 0.3 % (0-1); Eosinophil# 0.08 X10^3/uL; Eosinophils% 1.1 % (0-5); Hematocrit 39.8 % (37-47); Lymphocyte # 2.23 X10^3/ul (0.83-4.51); Lymphocyte % 29.8 % (19-41); Mean Corp Hgb Conc 35.2 g/dL (32-36); Mean Corpuscular Volume 88.2 fL (81-99); Mean Platelet Vol. 9.4 fl (6.2-12.0); Monocyte# 0.44 X10^3/uL; Monocyte% 5.9 % (0-10); NRBC Flagged by Analyzer 0 % (0-5); Neutrophil # 4.68 X10^3/uL (2.7-7.7); Neutrophil % 62.4 % (47-70); Platelet Count 234 K/mm3 (150-450); RBC Distribution Width CV 12.5 % (11.6-14.6); RBC Distribution Width SD 40.6 fl (35.1-43.9); Red Blood Count 4.51 M/mm3 (4.2-5.4); White Blood Count 7.5 K/mm3 (4.4-11.0)
[2024-10-05 16:10] LABS: HIV - WCH Non-Reactive (Nonreactive); Hepatitis B Surface Antigen Non-Reactive (Nonreactive); Hepatitis C Antibody Non-Reactive (Nonreactive); Rubella IgG Reactive (Nonreactive); Syphilis Antibodies Non-reactive
[2024-10-05 20:07] LABS: Chlamydia By Nucleic Acid AMP Negative (Negative); Gonococcus By Nucleic Acid AMP Negative (Negative)
== END | disposition home or self-care (01) ==
LOC: BWCLAB 09:24
PROVIDERS: PCP Family Medicine; Referring Provider Advanced Practice Midwife; Visit Provider Advanced Practice Midwife
DX: O09.90 Supervision of high risk pregnancy, unspecified, unspecified trimester (principal); Z3A.00 Weeks of gestation of pregnancy not specified
CPT/HCPCS: 36415; 85025; 86703; 86762; 86780; 86803; 86850; 86900; 86901; 87086; 87340; 87491; 87591

== ENCOUNTER → 2025-02-11 | Outpatient (CLI) | payer BC, SELFPAY ==
[2025-02-11 12:23] LABS: Absolute Lymphocyte Count 1.83 X10^3/uL (0.83-4.51); Absolute Neutrophil Count 5.5 X10^3/uL (2.0-7.7); Basophil# 0.02 X10^3/uL; Basophil% 0.3 % (0-1); Eosinophil# 0.11 X10^3/uL; Eosinophils% 1.4 % (0-5); Hematocrit 33.6 % (37-47); Hemoglobin 11.5 g/dL (12.0-15.0); Lymphocyte # 1.83 X10^3/ul (0.83-4.51); Mean Corp Hgb Conc 34.2 g/dL (32-36); Mean Corpuscular Hgb 31.6 pg (27.0-32.0); Mean Corpuscular Volume 92.3 fL (81-99); Mean Platelet Vol. 9.6 fl (6.2-12.0); Monocyte# 0.41 X10^3/uL; Monocyte% 5.2 % (0-10); NRBC Flagged by Analyzer 0 % (0-5); Neutrophil # 5.52 X10^3/uL (2.7-7.7); Neutrophil % 69.5 % (47-70); Platelet Count 160 K/mm3 (150-450); RBC Distribution Width CV 12.9 % (11.6-14.6); RBC Distribution Width SD 43.1 fl (35.1-43.9); Red Blood Count 3.64 M/mm3 (4.2-5.4); White Blood Count 7.9 K/mm3 (4.4-11.0)
[2025-02-11 13:38] LABS: Glucose Challenge Gest 1H 50g 66 mg/dL (70-140); HIV Nonreactive (Nonreactive); Syphilis Antibodies Nonreactive (Nonreactive)
== END | disposition home or self-care (01) ==
PROVIDERS: Obstetrics & Gynecology; PCP Family Medicine; Referring Provider Advanced Practice Midwife; Visit Provider Advanced Practice Midwife
DX: Z13.1 Encounter for screening for diabetes mellitus (principal); O09.90 Supervision of high risk pregnancy, unspecified, unspecified trimester; Z3A.00 Weeks of gestation of pregnancy not specified
CPT/HCPCS: 36415; 82950; 85025; 86703; 86780; 86850; 86900; 86901

== ENCOUNTER → 2025-04-08 | Outpatient (CLI) | payer BC, SELFPAY | END | disposition home or self-care (01) | LOC: LABSPEC 16:34 | PROVIDERS: PCP Family Medicine; Referring Provider Advanced Practice Midwife; Visit Provider Advanced Practice Midwife | DX: O09.93 Supervision of high risk pregnancy, unspecified, third trimester (principal); Z3A.00 Weeks of gestation of pregnancy not specified | CPT/HCPCS: 87081 ==

== ENCOUNTER → 2025-04-14 | Outpatient (CLI) | payer BC, SELFPAY ==
--- NOTE | 2025-04-14 11:43 | US_ITS ---
PROCEDURE: OB LIMITED WITH BIOMETRICS 04/14/2025 REASON FOR EXAM: S<D TECHNIQUE: OB LIMITED WITH BIOMETRICS COMPARISON: None FINDINGS LMP: July 29, 2024. Number: 1 Position: Breech Placental Position: Anterior and not low-lying Placental Abnormalities: No evidence of previa. DIMENSIONS: Biparietal Diameter: 8.9 cm: 36 weeks and 1 day: 42nd percentile/ Head Circumference: 32.5 cm: 36 weeks and 5 days: 20 percentile/ Abdominal Circumference: 33.2 cm: 37 weeks and 1 day: 67 percentile/ Femur Length: 6.9 cm: 35 weeks and 3 days: 14 percentile/ ESTIMATED WEIGHT: 2991 g plus/-449 g ESTIMATED WEIGHT PERCENTILE (24+ weeks): 46 ESTIMATED GESTATIONAL AGE: Baseline: 37 weeks and 0 days By Ultrasound: 36 weeks and 5 days ESTIMATED DATE OF DELIVERY: Baseline: May 05, 2025 By Ultrasound: May 07, 2025 BIOPHYSICAL ASSESSMENT: Amniotic Fluid Volume: 5.2 cm Amniotic Fluid Index: 10.3 (8-24 cm normal range) Cardiac Motion: 144 beats per minute (average) Trunk and Limb Motion: Present. MATERNAL ANATOMY: Adnexa: Neither maternal ovary is successfully identified. US/OB Limited With Biometrics IMPRESSION: Single live intrauterine gestation with a mean gestational age of 36 weeks and 5 days. Reading Location: [id number]
== END | disposition home or self-care (01) ==
LOC: US 11:43
PROVIDERS: PCP Family Medicine; Referring Provider Advanced Practice Midwife; Visit Provider Advanced Practice Midwife
DX: O26.849 Uterine size-date discrepancy, unspecified trimester (principal); Z3A.00 Weeks of gestation of pregnancy not specified
CPT/HCPCS: 76816

== ENCOUNTER 2025-04-28 12:05 | Outpatient (CLI) | payer BC, SELFPAY ==
--- NOTE | 2025-04-28 12:11 | US_ITS ---
PROCEDURE: OB LIMITED (NO BIOMETRICS) 04/28/2025 REASON FOR EXAM: MEASURING LESS THAN GESTATIONAL AGE. NEED BRE TECHNIQUE: OB LIMITED (NO BIOMETRICS) COMPARISON: Prior study dated April 14, 2025. FINDINGS Number: 1 Position: Vertex Placental Position: Anterior and not low-lying. Placental Abnormalities: No evidence of previa. ESTIMATED GESTATIONAL AGE: Baseline: 39 weeks and 0 days ESTIMATED DATE OF DELIVERY: Baseline: May 05, 2025. BIOPHYSICAL ASSESSMENT: Amniotic Fluid Volume: 4.1 cm Amniotic Fluid Index: 10.3 (8-24 cm normal range) Cardiac Motion: 145 beats per minute (average) Trunk and Limb Motion: Present. MATERNAL ANATOMY: Adnexa: Neither maternal ovary is successfully identified. US/OB Limited (No Biometrics) IMPRESSION: Single live intrauterine gestation with a mean gestational age of 39 weeks. Reading Location: [place] [id number]
[2025-04-28 12:14] VITALS: BMI 25.0
[2025-04-28 12:23] VITALS: PULSE 64; O2SAT 96
[2025-04-28 12:24] VITALS: BP 112/69; PULSE 64; RESP 16; TEMP 36.6
--- NOTE | 2025-04-28 17:32 | OB.TRI.HP_ITS ---
HPI - General HPI Narrative NICHOLE VELA, is a 30 y/o @ 39 weeks who presents to L&D for an BRE. She was sent in per Elizabeth Martinez CNM. She denies loss of fluid, vaginal bleeding, or dec fm. Maternal Data Information ROXANA Calculator Estimated Delivery Date Method Current WG Current Estimate 05/05/25 LMP (Certain) 39w 0d Other Estimates 05/07/25 Ultrasound #1 38w 5d PFSH PFSH Medical History Vaginal delivery Depression Home Medications ?Medication ?Instructions ?Recorded ?Last Taken ?Type PNV 153-FA 400 mcg-om3 35 mg-dha 1 tab PO DAILY 04/27/25 21:00 History 25 mg-epa 5 mg-fish oil chew tablet 1 TAB ondansetron HCl 4 mg tablet 4 mg PO Q4H #60 tabs 12/02 Unknown Rx Allergy/AdvReac Type Severity Reaction Status Date / Time No Known Allergies Allergy Verified 04/28/25 12:19 Family History Grandfather Heart disease Paternal Cancer Paternal- skin cancer Surgical History H/O arthroscopic knee surgery [place] teeth extracted Social History adopted: No household members: spouse and children number of children: 2 current occupational status: employed 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 current occupational exposures/hazards: No pets and animals: Yes pets and animals: dog(s) history of recent travel: Yes ([place], [place], [place], , [place], [place]) out of state: Yes out of country: No Smoking Status: Never smoker alcohol intake: current alcohol intake frequency: holidays/special occasions only details: Not while substance use type: does not use well-balanced diet: daily or most days caffeine: No eating out: rarely or never during the past year weight has: remained stable what type of physical activity do you participate in: running and other details: crossfit frequency: 5-6 times per week duration: 45-60 minutes/day romie/religious: Episcopalian seatbelt use: always do you feel safe at home: Yes additional social history: Ismael Rodriguez History 3 Elective abortions Hx Para 2 Spontaneous abortions Hx # Term Pregnancies Ectopic pregnancies Hx # Pregnancies Multiple births # of living children 2 Past Pregnancies Del. Date Name GA/Weeks Outcome Route Bth Weight Infant Gen Labor Lgth Anesthesia Del Locatn Provider FOB 09/16/19 Angelo 37 live - full term 7#2oz Male 16 hr epidur al [facility] Dr. Nadiya Jimenez 08/09/21 Elijah 39 live - full term 7#12oz Male 3 Hrs none [facility] Dr. Kari Jimenez Delivery Date: 09/16/19 Last Updated by: Maru Kingsley SROM Visit Details Expected Delivery Route/Plan Labor Preferences- CB/BF classes: no labor support person: Tony labor intervention preferences: [] pain management options preferred: limited cut cord/dad catch: cord : yes PP control planned: discussed discussed possible routes of delivery and associated risks: [] special requests: [] Plans Covid status: [] Flu vaccine: [] Tdap vaccine: given Rhogam: given 02/11/25 LARC form signed: yes Problem list reviewed and updated with the most current plan of care details and appropriate orders placed. Relevant counseling for the gestational age provided. Continue routine care and follow up unless otherwise noted in visit notes/problem list details OB Flowsheet Initial Weight: Not Recorded Date -?-?-?-?-?-?-?-?-?-?-?-?- EGA Weight BP Urine Prot -?-?-?-?-?-?-?-?-?-?-?-?- Glucose FHR FuHt Pres Dilation -?-?-?-?-?-?-?-?-?-?-?-?- Effaced St Visit Note 10/02/24 -?-?-?-?-?-?-?-?-?-?-?-?- 9w 2d 143 lb 97/62 -?-?-?-?-?-?-?-?-?-?-?-?- 190 -?-?-?-?-?-?-?-?-?-?-?-?- KW-CRL cons with dates. Declines NIPT 11/06/24 -?-?-?-?-?-?-?-?-?-?-?-?- 14w 2d 145 lb 110/69 Negative -?-?-?-?-?-?-?-?-?-?-?-?- Negative 143 -?-?-?-?-?-?-?-?-?-?-?-?- LC- no vb/crampi ng. declines afp. anatomy ordered. 12/02/24 -?-?-?--?-?-?-?-?-?-?-?-?- 18w 0d 153 lb 4 oz 112/74 Nega tive -?-?-?-?-?-?-?-?-?-?-?-?- Negative 140 -?-?-?-?-?-?-?-?-?-?-?-?- SM- co nausea, a nd some heartburn 12/31/24 -?-?-?-?-?-?-?-?-?-?-?-?- 22w 1d 157 lb 4 oz 94/63 Nega tive -?-?-?-?-?-?-?-?-?-?-?-?- Negative 150 -?-?-?-?-?-?-?-?-?-?-?--?- JV- follow up an atomy was normal. still some nausea at night, overall doing well. 01/28/25 -?-?-?-?-?-?-?-?-?-?-?-?- 26w 1d 158 lb 8 oz 105/67 Nega tive -?-?-?-?-?-?-?-?-?-?-?-?- Negative 144 24.5 -?-?-?-?-?-?-?-?-?-?-?-?- JV- no complaint s today. + fm. planning glucola next visit. 02/11/25 -?-?-?-?-?-?-?-?-?-?-?-?- 28w 1d 161 lb 4 oz 106/64 Nega tive -?-?-?-?-?-?-?-?-?-?-?-?- Negative 146 27 -?-?-?-?-?-?-?-?-?-?-?-?- MH-No VB, lof. G ood FM. 28 wk labs, rhogam, tdap, larc 02/25/25 -?-?-?-?-?-?-?-?-?-?-?-?- 30w 1d 161 lb 6 oz 93/56 Nega tive -?-?-?-?-?-?-?-?-?-?-?-?- Negative 153 29 -?-?-?-?-?-?-?-?-?-?-?-?- MH-No VB, LOF. G ood Fm. Denies concerns 03/09/25 -?-?-?-?-?-?-?-?-?-?-?-?- 31w 6d 159 lb 6 oz 101/66 Nega tive -?-?-?-?-?-?-?-?-?-?-?-?- Negative 155 30 -?-?-?-?-?-?-?-?-?-?-?-?- KW- no vb/lof/ct x. good fm. no concerns today. 03/22/25 -?-?-?-?-?-?-?-?-?-?--?-?- 33w 5d 161 lb 2 oz 112/68 Nega tive -?-?-?-?-?-?-?-?-?-?-?-?- Negative 140 32 -?-?-?-?-?-?-?-?-?-?-?-?- KW- no vb/lof/ct x. good fm. denies concerns 04/08/25 -?-?-?-?-?-?-?-?-?-?-?-?- 36w 1d 162 lb 115/65 Negative -?-?-?-?-?-?-?-?-?-?-?-?- Negative 135 33 Cephalic 1 -?-?-?-?-?-?-?-?-?-?-?-?- 60 -2 KW- no vb/ lof/ reg ctx. gbs today. growth US ordered for S<D KW- no vb/lof/ reg ctx. gbs today. growth US ordered for S<D. BRE 11- reviewed by JV and agrees. 04/15/25 -?-?-?-?-?-?-?-?-?-?-?-?- 37w 1d 165 lb 6 oz 105/70 Nega tive -?-?-?-?-?-?-?-?-?-?-?-?- Negative 143 35 Cephalic 1 -?-?-?-?-?--?-?-?-?-?-?-?- MH-No VB, LOF or reg CTX. Neg GBS. Good FM. Reviewed normal growth US 04/21/25 -?-?-?-?-?-?-?-?-?-?-?-?- 38w 0d 161 lb 117/73 Negative -?-?-?-?-?-?-?-?-?-?-?-?- Negative 150 35 Cephalic -?-?-?-?-?-?-?-?-?-?-?-?- JV-no lof, vagin al bleeding, or dec fm. normal growth scan last week. no complaints. 04/28/25 -?-?-?-?-?-?-?-?-?-?-?-?- 39w 0d 161 lb 2 oz 108/68 Nega tive -?-?-?-?-?-?-?-?-?-?-?-?- Negative 130 35 Cephalic 3 -?-?-?-?-?-?-?-?--?-?-?-?- 60 -1 KW- no vb/ lof/ctx. good fm. no concerns KW- no vb/lof/ctx. good fm. no concerns. unable to determine BRE with handheld US-to WP for BRE ROS Constitutional Constitutional: Reports systems reviewed and no addt'l complaints, except as documented Gastrointestinal Gastrointestinal: Denies bloating, constipation, cramping, diarrhea, nausea or vomiting Genitourinary Genitourinary: Reports other Details: Denies vaginal odor, vaginal bleeding, or vaginal discharge ; Denies difficulty urinating or flank pain NST FHR Rate Baby A Baseline: 140 Variability:: Moderate Accelerations:: 15 x 15 Decelerations:: None NST Reactive:: Yes FHR Category:: Category I Assessment & Plan (1) Uterine size date discrepancy : COMMENT: 36 wk EFW 46%, AC 67% BRE 10 on 04/28 PLAN: bre is normal today. normal growth on scan last week. nst reactive ok to dc to home (2) Supervision of high-risk : QUALIFIERS: Trimester: third trimester Qualified Code(s): O09.93 - Supervision of high risk , unspecified, third trimester COMMENT: PRR, , ROXANA 05/05/25, PC Elijah Stephens, Tony (3) : QUALIFIERS: Weeks of gestation: 39 weeks Qualified Code(s): Z3A.39 - 39 weeks gestation of COMMENT: Neg GBS. declined NIPT & Carrier testing, nl anatomy (4) Rh negative status during : QUALIFIERS: Trimester: third trimester Qualified Code(s): O26.893 - Other specified related conditions, third trimester; Z67.91 - Unspecified blood type, Rh negative COMMENT: Rhogam 28 wks & PRN Bleeding. Given 02/11/25 (5) ADHD (attention deficit hyperactivity disorder): Charges/Coding Multi Select Codes Urinary/Genital Urinary/Genital CPT Codes: 77458-13 non-stress test Interp
--- NOTE | 2025-04-28 17:32 | OB.TRI.NOTE ---
HPI - General HPI Narrative NICHOLE VELA, is a 30 y/o @ 39 weeks who presents to L&D for an BRE. She was sent in per Elizabeth Martinez CNM. She denies loss of fluid, vaginal bleeding, or dec fm. Maternal Data Information ROXANA Calculator Estimated Delivery Date Method Current WG Current Estimate 05/05/25 LMP (Certain) 39w 0d Other Estimates 05/07/25 Ultrasound #1 38w 5d PFSH PFSH Medical History Vaginal delivery Depression Home Medications ?Medication ?Instructions ?Recorded ?Last Taken ?Type PNV 153-FA 400 mcg-om3 35 mg-dha 1 tab PO DAILY 09/22/24 04/27/25 21:00 History 25 mg-epa 5 mg-fish oil chew tablet 1 TAB ondansetron HCl 4 mg tablet 4 mg PO Q4H #60 tabs 12/02/24 Unknown Rx Allergy/AdvReac Type Severity Reaction Status Date / Time No Known Allergies Allergy Verified 04/28/25 12:19 Family History Grandfather Heart disease Paternal Cancer Paternal- skin cancer Surgical History H/O arthroscopic knee surgery [place] teeth extracted Social History adopted: No household members: spouse and children number of children: 2 current occupational status: employed 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 current occupational exposures/hazards: No pets and animals: Yes pets and animals: dog(s) history of recent travel: Yes ([place], [place], [place], , [place], [place]) out of state: Yes out of country: No Smoking Status: Never smoker alcohol intake: current alcohol intake frequency: holidays/special occasions only details: Not while substance use type: does not use well-balanced diet: daily or most days caffeine: No eating out: rarely or never during the past year weight has: remained stable what type of physical activity do you participate in: running and other details: crossfit frequency: 5-6 times per week duration: 45-60 minutes/day romie/rastafari: Baptism seatbelt use: always do you feel safe at home: Yes additional social history: Ismael Rodriguez History 3 Elective abortions Hx Para 2 Spontaneous abortions Hx # Term Pregnancies Ectopic pregnancies Hx # Pregnancies Multiple births # of living children 2 Past Pregnancies Del. Date Name GA/Weeks Outcome Route Bth Weight Gen Labor Lgth Anesthesia Del Locatn Provider FOB 09/16/19 Angelo 37 live - full term 7#2oz Male 16 hr epidural [facility] Dr. Naidya Jimenez 08/09/21 Elijah 39 live - full term 7#12oz Male 3 Hrs none [facility] Dr. Kari Jimenez Delivery Date: 09/16/19 Last Updated by: Maru Kingsley SROM Visit Details Expected Delivery Route/Plan Labor Preferences- CB/BF classes: no labor support person: Tony labor intervention preferences: [] pain management options preferred: limited cut cord/dad catch: cord : yes PP control planned: discussed discussed possible routes of delivery and associated risks: [] special requests: [] Plans Covid status: [] Flu vaccine: [] Tdap vaccine: given Rhogam: given 02/11/25 LARC form signed: yes Problem list reviewed and updated with the most current plan of care details and appropriate orders placed. Relevant counseling for the gestational age provided. Continue routine care and follow up unless otherwise noted in visit notes/problem list details OB Flowsheet Initial Weight: Not Recorded Date <del>?</del> EGA Weight BP Urine Prot <del>?</del> Glucose FHR FuHt Pres Dilation <del>?</del> Effaced St Visit Note 10/02/24 <del>?</del> 9w 2d 143 lb 97/62 <del>?</del> 190 <del>?</del> KW-CRL cons with dates. Declines NIPT 11/06/24 <del>?</del> 14w 2d 145 lb 110/69 Negative <del>?</del> Negative 143 <del>?</del> LC- no vb/cramping. declines afp. anatomy ordered. 12/02/24 <del>?</del> 18w 0d 153 lb 4 oz 112/74 Negative <del>?</del> Negative 140 <del>?</del> SM- co nausea, and some heartburn 12/31/24 <del>?</del> 22w 1d 157 lb 4 oz 94/63 Negative <del>?</del> Negative 150 <del>?</del> JV- follow up anatomy was normal. still some nausea at night, overall doing well. 01/28/25 <del>?</del> 26w 1d 158 lb 8 oz 105/67 Negative <del>?</del> Negative 144 24.5 <del>?</del> JV- no complaints today. + fm. planning glucola next visit. 02/11/25 <del>?</del> 28w 1d 161 lb 4 oz 106/64 Negative <del>?</del> Negative 146 27 <del>?</del> MH-No VB, lof. Good FM. 28 wk labs, rhogam, tdap, larc 02/25/25 <del>?</del> 30w 1d 161 lb 6 oz 93/56 Negative <del>?</del> Negative 153 29 <del>?</del> MH-No VB, LOF. Good Fm. Denies concerns 03/09/25 <del>?</del> 31w 6d 159 lb 6 oz 101/66 Negative <del>?</del> Negative 155 30 <del>?</del> KW- no vb/lof/ctx. good fm. no concerns today. 03/22/25 <del>?</del> 33w 5d 161 lb 2 oz 112/68 Negative <del>?</del> Negative 140 32 <del>?</del> KW- no vb/lof/ctx. good fm. denies concerns 04/08/25 <del>?</del> 36w 1d 162 lb 115/65 Negative <del>?</del> Negative 135 33 Cephalic 1 <del>?</del> 60 -2 KW- no vb/lof/ reg ctx. gbs today. growth US ordered for S<D KW- no vb/lof/ reg ctx. gbs today. growth US ordered for S<D. BRE 11- reviewed by ROSS and agrees. 04/15/25 <del>?</del> 37w 1d 165 lb 6 oz 105/70 Negative <del>?</del> Negative 143 35 Cephalic 1 <del>?</del> MH-No VB, LOF or reg CTX. Neg GBS. Good FM. Reviewed normal growth US 04/21/25 <del>?</del> 38w 0d 161 lb 117/73 Negative <del>?</del> Negative 150 35 Cephalic <del>?</del> JV-no lof, vaginal bleeding, or dec fm. normal growth scan last week. no complaints. 04/28/25 <del>?</del> 39w 0d 161 lb 2 oz 108/68 Negative <del>?</del> Negative 130 35 Cephalic 3 <del>?</del> 60 -1 KW- no vb/lof/ctx. good fm. no concerns KW- no vb/lof/ctx. good fm. no concerns. unable to determine BRE with handheld US-to WP for BRE ROS Constitutional Constitutional: Reports systems reviewed and no addt'l complaints, except as documented Gastrointestinal Gastrointestinal: Denies bloating, constipation, cramping, diarrhea, nausea or vomiting Genitourinary Genitourinary: Reports other Details: Denies vaginal odor, vaginal bleeding, or vaginal discharge ; Denies difficulty urinating or flank pain NST FHR Rate Baby A Baseline: 140 Variability:: Moderate Accelerations:: 15 x 15 Decelerations:: None NST Reactive:: Yes FHR Category:: Category I Assessment & Plan (1) Uterine size date discrepancy : COMMENT: 36 wk EFW 46%, AC 67% BRE 10 on 04/28 PLAN: bre is normal today. normal growth on scan last week. nst reactive ok to dc to home (2) Supervision of high-risk : QUALIFIERS: Trimester: third trimester Qualified Code(s): O09.93 - Supervision of high risk , unspecified, third trimester COMMENT: PRR, , ROXANA 05/05/25, Elijah Sher, Tony (3) : QUALIFIERS: Weeks of gestation: 39 weeks Qualified Code(s): Z3A.39 - 39 weeks gestation of COMMENT: Neg GBS. declined NIPT & Carrier testing, nl anatomy (4) Rh negative status during : QUALIFIERS: Trimester: third trimester Qualified Code(s): O26.893 - Other specified related conditions, third trimester; Z67.91 - Unspecified blood type, Rh negative COMMENT: Rhogam 28 wks & PRN Bleeding. Given 02/11/25 (5) ADHD (attention deficit hyperactivity disorder): Charges/Coding Multi Select Codes Urinary/Genital Urinary/Genital CPT Codes: 22045-54 non-stress test Interp
== END 2025-04-28 14:13 | disposition home or self-care (01) ==
LOC: WPOUT 12:09 → WP 12:10
PROVIDERS: PCP Family Medicine; Referring Provider Obstetrics & Gynecology; Visit Provider Obstetrics & Gynecology
DX: O26.843 Uterine size-date discrepancy, third trimester (principal); Z3A.39 39 weeks gestation of pregnancy; O26.893 Other specified pregnancy related conditions, third trimester
CPT/HCPCS: 59025; 59050; 76815; 99221; G0378

== ENCOUNTER 2025-05-11 03:15 | Inpatient (IN) | payer BC, SELFPAY ==
[2025-05-11] VITALS (42 sets, daily range): BP systolic 106–152; BP diastolic 58–86; PULSE 53–73; RESP 16; TEMP 36.5–37.2; O2SAT 68–100; BMI 25.4
[2025-05-11] MEDS: Lactated Ringers 1,000 ML 50 ML IV (03:35)
[2025-05-11 03:53] LABS: Hematocrit 35.9 % (37-47); Hemoglobin 12.6 g/dL (12.0-15.0); Immature Granulocytes Count 0.070 X10^3/uL (0.0-0.0); Mean Corp Hgb Conc 35.1 g/dL (32-36); Mean Corpuscular Volume 89.5 fL (81-99); Mean Platelet Vol. 10.2 fl (6.2-12.0); NRBC Flagged by Analyzer 0 % (0-5); POSITIVE COUNT YES; Platelet Count 159 K/mm3 (150-450); RBC Distribution Width CV 13.0 % (11.6-14.6); RBC Distribution Width SD 42.5 fl (35.1-43.9); Red Blood Count 4.01 M/mm3 (4.2-5.4); White Blood Count 11.2 K/mm3 (4.4-11.0)
--- NOTE | 2025-05-11 04:01 | HP.PCM.OB_ITS ---
HPI - General General Date of Admission: 05/11/25 Date of Service: 05/11/25 HPI Narrative NICHOLE VELA, is a 30 F 40.6 weeks gestation who presents to unit in active labor. SROM at home at 0230 and contractions became 4-5 minutes apart. upon arrival SVE was /+1 Maternal Data Information ROXANA Calculator Estimated Delivery Date Method Current WG Current Estimate 05/05/25 LMP (Certain) 40w 6d Other Estimates 05/07/25 Ultrasound #1 40w 4d Final ROXANA: 05/05/25 Final ROXANA Source: US >20 weeks Gestational age: 40.6 PFSH PFSH Medical History Vaginal delivery Depression Home Medications ?Medication ?Instructions ?Recorded ?Last Taken ?Type PNV 153-FA 400 mcg-om3 35 mg-dha 1 tab PO DAILY pregna ncy 09/22/24 05/10/25 20:38 History 25 mg-epa 5 mg-fish oil chew tablet ondansetron HCl 4 mg tablet 4 mg PO Q4H #60 tabs 12/02 Unknown Rx Allergy/AdvReac Type Severity Reaction Status Date / Time No Known Allergies Allergy Verified 05/11/25 03:38 Family History Grandfather Heart disease Paternal Cancer Paternal- skin cancer Surgical History H/O arthroscopic knee surgery [place] teeth extracted Social History adopted: No household members: spouse and children number of children: 2 current occupational status: employed current occupation: [employer] current occupational exposures/hazards: No pets and animals: Yes pets and animals: dog(s) history of recent travel: Yes ([place], [place], [place], [place], [place], [place]) out of state: Yes out of country: No Smoking Status: Never smoker alcohol intake: current alcohol intake frequency: holidays/special occasions only details: Not while substance use type: does not use well-balanced diet: daily or most days caffeine: No eating out: rarely or never during the past year weight has: remained stable what type of physical activity do you participate in: running and other details: crossfit frequency: 5-6 times per week duration: 45-60 minutes/day romie/episcopalian: Hinduism seatbelt use: always do you feel safe at home: Yes additional social history: Ismael Rodriguez History 3 Elective abortions Hx Para 2 Spontaneous abortions Hx # Term Pregnancies Ectopic pregnancies Hx # Pregnancies Multiple births # of living children 2 Past Pregnancies Del. Date Name GA/Weeks Outcome Route Bth Weight Gen Labor Lgth Anesthesia Del Locatn Provider FOB 09/16/19 Angelo 37 live - full term 7#2oz Male 16 hr epidur al [facility] Dr. Nadiya Jimenez 08/09/21 Elijah 39 live - full term 7#12oz Male 3 Hrs none [facility] Dr. Kari Jimenez Delivery Date: 09/16/19 Last Updated by: Maru Kingsley SR Visit Details Expected Delivery Route/Plan Labor Preferences- CB/BF classes: no labor support person: Tony labor intervention preferences: [] pain management options preferred: limited cut cord/dad catch: cord : yes PP control planned: discussed discussed possible routes of delivery and associated risks: [] special requests: [] Plans Covid status: [] Flu vaccine: [] Tdap vaccine: given Rhogam: given 02/11/25 LARC form signed: yes Problem list reviewed and updated with the most current plan of care details and appropriate orders placed. Relevant counseling for the gestational age provided. Continue routine care and follow up unless otherwise noted in visit notes/problem list details OB Flowsheet Initial Weight: Not Recorded Date -?-?-?-?-?-?-?-?-?-?-?-?- EGA Weight BP Urine Prot -?-?-?-?-?-?-?-?-?-?-?-?- Glucose FHR FuHt Pres Dilation -?-?-?-?-?-?-?-?-?-?-?-?- Effaced St Visit Note 10/02/24 -?-?-?-?-?-?-?-?-?-?-?-?- 9w 2d 143 lb 97/62 -?-?-?-?-?-?-?-?-?-?-?-?- 190 -?-?-?-?-?-?-?-?-?-?-?-?- KW-CRL cons with dates. Declines NIPT 11/06/24 -?-?-?-?-?-?-?-?-?-?-?-?- 14w 2d 145 lb 110/69 Negative -?-?-?-?-?-?-?-?-?-?-?-?- Negative 143 -?--?-?-?-?-?-?-?-?-?-?-?- LC- no vb/crampi ng. declines afp. anatomy ordered. 12/02/24 -?-?-?-?-?-?-?-?-?-?-?-?- 18w 0d 153 lb 4 oz 112/74 Nega tive -?-?-?-?-?--?-?-?-?-?-?-?- Negative 140 -?-?-?-?-?-?-?-?-?-?-?-?- SM- co nausea, a nd some heartburn 12/31/24 -?-?-?-?-?-?-?-?-?-?-?-?- 22w 1d 157 lb 4 oz 94/63 Nega tive -?-?-?-?-?-?-?-?-?-?-?-?- Negative 150 -?-?-?-?-?-?-?-?-?-?-?-?- JV- follow up an atomy was normal. still some nausea at night, overall doing well. 01/28/25 -?-?-?-?-?-?-?-?-?-?-?-?- 26w 1d 158 lb 8 oz 105/67 Nega tive -?-?-?-?-?-?-?-?-?-?-?-?- Negative 144 24.5 -?-?-?-?-?-?-?-?-?-?-?-?- JV- no complaint s today. + fm. planning glucola next visit. 02/11/25 -?-?-?-?-?-?-?-?-?-?-?-?- 28w 1d 161 lb 4 oz 106/64 Nega tive -?-?-?-?-?-?-?-?-?-?-?-?- Negative 146 27 -?-?-?-?-?-?-?-?-?-?-?-?- MH-No VB, lof. G ood FM. 28 wk labs, rhogam, tdap, larc 02/25/25 -?-?-?-?-?-?-?-?--?-?-?-?- 30w 1d 161 lb 6 oz 93/56 Nega tive -?-?-?-?-?-?-?-?-?-?-?-?- Negative 153 29 -?-?-?-?-?-?-?-?-?-?-?-?- MH-No VB, LOF. G ood Fm. Denies concerns 03/09/25 -?-?-?-?-?-?-?-?-?-?-?-?- 31w 6d 159 lb 6 oz 101/66 Nega tive -?-?-?-?-?-?-?-?-?-?-?-?- Negative 155 30 -?-?-?-?--?-?-?-?-?-?-?-?- KW- no vb/lof/ct x. good fm. no concerns today. 03/22/25 -?-?-?-?-?-?-?-?-?-?-?-?- 33w 5d 161 lb 2 oz 112/68 Nega tive -?-?-?-?-?-?-?-?-?-?-?-?- Negative 140 32 -?-?-?-?-?-?-?-?-?-?-?-?- KW- no vb/lof/ct x. good fm. denies concerns 04/08/25 -?-?-?-?-?-?-?-?-?-?-?-?- 36w 1d 162 lb 115/65 Negative -?-?-?-?-?-?-?-?-?-?-?-?- Negative 135 33 Cephalic 1 -?-?-?-?-?-?-?-?-?-?-?-?- 60 -2 KW- no vb/ lof/ reg ctx. gbs today. growth US ordered for S<D KW- no vb/lof/ reg ctx. gbs today. growth US ordered for S<D. BRE 11- reviewed by JV and agrees. 04/15/25 -?-?-?-?-?-?-?-?-?-?-?-?- 37w 1d 165 lb 6 oz 105/70 Nega tive -?-?-?-?-?-?-?-?-?-?-?-?- Negative 143 35 Cephalic 1 -?-?-?-?-?-?-?-?-?-?-?-?- MH-No VB, LOF or reg CTX. Neg GBS. Good FM. Reviewed normal growth US 04/21/25 -?-?-?-?-?-?-?-?-?-?-?-?- 38w 0d 161 lb 117/73 Negative -?-?-?-?-?-?-?-?-?-?-?-?- Negative 150 35 Cephalic -?-?-?--?-?-?-?-?-?-?-?-?- JV-no lof, vagin al bleeding, or dec fm. normal growth scan last week. no complaints. 04/28/25 -?-?-?-?-?-?-?-?-?-?-?-?- 39w 0d 161 lb 2 oz 108/68 Nega tive -?-?-?-?-?-?-?-?-?-?-?-?- Negative 130 35 Cephalic 3 -?-?-?-?-?-?-?-?-?-?-?-?- 60 -1 KW- no vb/ lof/ctx. good fm. no concerns KW- no vb/lof/ctx. good fm. no concerns. unable to determine BRE with handheld US-to WP for BRE 05/05/25 -?-?-?-?-?-?-?-?-?-?-?-?- 40w 0d 163 lb 2 oz 103/71 Nega tive -?-?-?-?--?-?-?-?-?-?-?-?- Negative 30 36 Cephalic 3 -?-?-?-?-?-?-?-?-?-?-?-?- 60 SM- no v b lof good fm no regular ctx membranes swept patient wishes to wait to schedule IOL 05/10/25 -?-?-?-?-?-?-?-?-?-?-?-?- 40w 5d 164 lb 123/79 Negative -?-?-?-?-?-?-?-?-?-?-?-?- Negative 121 35 Cephalic 4 -?-?-?-?-?-?-?-?-?-?-?--?- 60 -1 JV- bre is 10 today. no lof, vaginal bleeding, or dec fm. IOL saturday NST FHR Rate Baby A Baseline: 120 Variability:: Moderate Accelerations:: 15 x 15 Decelerations:: None NST Reactive:: Yes FHR Category:: Category I Uterine Activity:: 3-4 minutes ROS Constitutional Constitutional: Denies change in weight, fatigue, fever(s), headache(s), poor appetite or weakness Eyes Eyes: Denies blurry vision, change in vision, floaters, seeing flashes or spots in vision ENT HEENT: Denies dizziness, headache(s), loss taste/smell or sore throat Cardiovascular Cardiovascular: Denies chest pain, dizziness, dyspnea, irregular heart rhythm, lightheadedness, palpitations or rapid heart rate Respiratory/Chest Respiratory/Chest: Denies change in mental status, chest tightness, cough, dyspnea or breast pain Gastrointestinal Gastrointestinal: Denies anorexia, chewing difficulty, constipation, diarrhea or weight changes Genitourinary Genitourinary: Denies difficulty urinating, dysuria, flank pain, genital pain, urinary frequency or urinary urgency Musculoskeletal Musculoskeletal: Denies back pain, difficulty walking, extremity pain, joint pain, muscle cramps or muscle weakness Integumentary Integumentary: Denies lesions or unusual bruising Neurologic Neurologic: Denies abnormal movements, abnormal speech, dizziness, numbness, seizure-like activity, syncope or weakness Psychiatric Psychiatric: Denies behavioral changes, change in appetite, confusion, depression, homicidal ideation, suicidal ideation or suicidal thoughts Endocrine Endocrinology: Denies excessive sweating, polydipsia or polyuria Hematologic/Lymphatic Hematologic/Lymphatic: Denies anemia Allergic/Immunologic Allergic/Immunologic: Denies itchy eyes, lip swelling, throat swelling, tongue swelling or wheezing Vital Signs Vital Signs Vital Signs: 05/11/25 03:36 05/11/25 03:36 05/11/25 03:36 Temperature Temperature Source Temporal Pulse Rate 56 L Respiratory Rate Blood Pressure 126/70 H BP Systolic 126 BP Diastolic 70 Pulse Ox 05/11/25 03:36 05/11/25 03:36 05/11/25 03:36 Temperature 98.1 F Temperature Source Pulse Rate Respiratory Rate 16 Blood Pressure BP Systolic BP Diastolic Pulse Ox 98 Weight Weight: 162 lb 1 oz Body Mass Index (BMI) 25.4 Physical Exam Const alert, oriented x3 and no apparent distress General Appearance: cooperative Orientation / Consciousness: awake HEENT normocephalic Neck full ROM Lymph Lymphatic: no lymphadenopathy noted Chest inspection of chest normal Resp normal respiratory effort and normal air movement Effort and Inspection: able to speak in complete sentences and symmetric chest movement GI soft to palpation and non-tender Inspection: gravid Palpation: soft; Negative for tender external exam normal Back/Spine normal to inspection Extremity normal to inspection and full ROM Skin no rashes or lesions noted Psych mental status grossly normal Appearance: grossly normal Speech: normal speech Labs Labs Labs: Blood Type O NEGATIVE Antibody Screen NEGATIVE Hct 33.6 % (37-47) L Hgb 11.5 g/dL (12.0-15.0) L Obstetrics Ultrasound Syphilis Total Ab Nonreactive (Nonreactive) VZV IgG Antibody 150 index (Immune >165) L Rubella IgG Antibody Reactive (Nonreactive) Hep Bs Antigen Non-Reactive (Nonreactive) Hepatitis C Antibody Non-Reactive (Nonreactive) Hepatitis C Ab (EIA) <0.1 s/co ratio (0.0-0.9) Chlamydia DNA (ARIAS) Negative (Negative) N.gonorrhoeae DNA (ARIAS) Negative (Negative) HIV 1&2 Antibody Nonreactive (Nonreactive) Glucose 1 Hr 50 gm 66 mg/dL (70-140) L Rhogam given: Yes Assessment & Plan (1) Active labor at term: PLAN: Patient presents IAL, plan expectant management for , pitocin/AROM PRN if needed. Pain management: plans epidural. GBS neg. Management of any complications: none I have reviewed the [facility] and made any clinically relevant updates. Dr Rocha aware of assessment, plan and admission. agrees with above (2) Uterine size date discrepancy : COMMENT: 36 wk EFW 46%, AC 67% BRE 10 on 04/28 (3) Supervision of high-risk : QUALIFIERS: Trimester: third trimester Qualified Code(s): O09.93 - Supervision of high risk , unspecified, third trimester COMMENT: PRR, , ROXANA 05/05/25, PC Elijah Stephens, Tony (4) : QUALIFIERS: Weeks of gestation: 40 weeks Qualified Code(s): Z3A.40 - 40 weeks gestation of COMMENT: Neg GBS. declined NIPT & Carrier testing, nl anatomy (5) Rh negative status during : QUALIFIERS: Trimester: third trimester Qualified Code(s): O26.893 - Other specified related conditions, third trimester; Z67.91 - Unspecified blood type, Rh negative COMMENT: Rhogam 28 wks & PRN Bleeding. Given 02/11/25 (6) ADHD (attention deficit hyperactivity disorder): Charges/Coding Multi Select Codes Urinary/Genital Urinary/Genital CPT Codes: No Charge
--- OUTSIDE RECORDS SUMMARY | 2025-05-11 04:04 | XMS RPT_ITS | CCD ---
Author Organization [facility] Providers Care Senior Instrumentation Engineer Name Role Phone MEGHAN MEDRANO Attending Unavailable MEGHAN MEDRANO Primary Care Unavailable MEGHAN MEDRANO Admitting Unavailable KEMAR, JOSHUA Consulting Unavailable PROVIDER, UNKNOWN Consulting Unavailable Unavailable Primary Care Provider UnavailANNELISE Fairbanks Referring Unavailable ANNELISE GARLAND Attending Unavailable ANNELISE GARLAND Attending Unavailable JALYN ELLIS Attending Unavailable GRISELDA ALVARADO Primary Care Unavailable MEMO HICKS Referring Unavailable JOSEPHINE HENDERSON Attending Unavailable GRISELDA ALVARADO Primary Care Unavailable MEMO HICKS Referring Unavailable Dr. Griselda Alvarado MD Primary Care Provider Dr. Griselda Alvarado MD Referring Provider [phone] Dr. Pamela Beebe MD Attending Provider Dr. Elle Stallings DO Attending Provider Florencio CONRAD-Isabelle Armando Attending Provider Elizabeth Martin CNM Attending Provider [phone] Elizabeth Martin CNM Referring Provider Dr. Griselda Alvarado MD Primary Care Provider Dr. Griselda Alvarado MD Referring Provider Dr. Elle Stallings DO Referring Provider Dr. Griselda Alvarado MD Primary Care Provider Dr. Griselda Alvarado MD Referring Provider Dr. Elle Stallings DO Attending Provider Dr. Elle Stallings DO Other Provider Abiel ECHOLS Dr. Pamela Attending Provider Vaccariello, Griselda Referring Unavailable Elizabeth Martin Attending Unavailable Vaccariello, Griselda Primary Care Unavailable Vaccariello, Griselda Referring Unavailable Vande Velde, Elle Attending Unavailabl e Vaccariello, Griselda Primary Care Unavailable Vaccariello, Griselda Primary Care Unavailable Vaccariello, Griselda Referring Unavailable Elizabeth Martin Attending Unavailable Vaccariello, Griselda Primary Care Unavailable Vaccariello, Griselda Referring Unavailable Elizabeth Martin Attending Unavailable Vaccariello, Griselda Primary Care Unavailable Vaccariello, Griselda Referring Unavailable Florencio DIVORCE ATTORNEYIsabelle Attending Unavailable Vaccariello, Griselda Primary Care Unavailable Vaccariello, Griselda Referring Unavailable Lynn DIVORCE ATTORNEY, Isabelle Attending Unavailable Vande Velde, Elle Consulting Unavailabl e Vande Velde, Elle Referring Unavailabl e Vande Velde, Elle Attending Unavailabl e Vaccariello, Griselda Primary Care Unavailable Vande Velde, Elle Referring Unavailabl e Vande Velde, Elle Attending Unavailabl e Vaccariello, Griselda Primary Care Unavailable Vaccariello, Griselda Primary Care Unavailable Elizabeth Martin Attending Unavailable Elizabeth Martin Referring Unavailable Vaccariello, Griselda Primary Care Unavailable Vaccariello, Griselda Referring Unavailable Elizabeth Martin Attending Unavailable Vaccariello, Griselda Referring Unavailable Vaccariello, Griselda Primary Care Unavailable Elizabeth Martin Attending Unavailable Vaccariello, Griselda Referring Unavailable Vaccariello, Griselda Primary Care Unavailable Pamela Beebe Attending Unavailable Elizabeth Martin Referring Unavailable Elizabeth Martin Attending Unavailable Vaccariello, Griselda Primary Care Unavailable Vaccariello, Griselda Primary Care Unavailable Elizabeth Martin Referring Unavailable Elizabeth Martin Attending Unavailable Vaccariello, Griselda Primary Care Unavailable Elizabeth Martin Referring Unavailable Elizabeth Martin Attending Unavailable Vaccariello, Griselda Primary Care Unavailable Vaccariello, Griselda Referring Unavailable Memo Hicks Attending Unavailable Vaccariello, Griselda Primary Care Unavailable Vaccariello, Griselda Referring Unavailable Pamela Beebe Attending Unavailable Vaccariello, Griselda Primary Care Unavailable Vaccariello, Griselda Referring Unavailable Vande Velde, Elle Attending Unavailabl e Vande Velde, Elle Attending Unavailabl e Vaccariello, Griselda Primary Care Unavailable Vaccariello, Griselda Referring Unavailable Vande Velde, Elle Attending Unavailabl e Vaccariello, Griselda Primary Care Unavailable Vaccariello, Griselda Referring Unavailable Vaccariello, Griselda Primary Care Unavailable Vaccariello, Griselad Referring Unavailable Lynn DIVORCE ATTORNEY, Isabelle Attending Unavailable Medications Current Medications Medication Drug Class(es) Dates Sig (Normalized) Sig (Original) Ethinyl Estradiol / Norethindrone (1 source) Estrogen Start: 04-15-2024 take 1 tablet by mouth once daily, then take 0.05 tablet by mouth once Norethindrone Acet-Ethinyl Est (LOESTRIN 11/09, 21,) 1-20 mg-mcg per tablet Take 1 tablet by mouth once daily. 63 tablet 4 04/15/2024 Active ondansetron 4 mg oral tablet (11 sources) Serotonin-3 Receptor Antagonist Start: 12-02-2024 take 1 tablet by mouth every four hours Ondansetron Hcl 4 mg tablet Active 4 mg PO Q4H 60 3 December 02, 2024 1:00am Pnv No.475-Dt-Jc5-Dha-Ep a-Fish 400 mcg-35 mg- 25 mg-5 mg tablet,chewable (11 sources) Start: 09-22-2024 Pnv No.123-Jo-Yi9-Dha-E pa-Fish 400 mcg-35 mg- 25 mg-5 mg tablet,chewable Active 1 {tbl} PO DAILY September 22, 2024 1:00am Start: 09-22-2024 Pnv No.153-Fa- Ls7-Ukx-Hww-Fish 400 mcg-35 mg- 25 mg-5 mg tablet,chewable Active {tbl} PO September 22, 2024 1:00am Vit No.734-Gtps-Wjkkn (1 source) Start: 09-16-2019 take 1 tablet by mouth once daily Vit No.342-Ikbn-Djuom Active 1 TABLET PO DAILY September 16, 2019 7:13am Completed/Discontinued Medications Medication Drug Class(es) Dates Sig (Normalized) Sig (Original) Vit No.793-Erxb-Ijlwc 1 EACH tablet (11 sources) Start: 09-16-2019 End: 09-22-2024 take 1 tablet by mouth once daily Vit No.185-Aont-Xzavf 1 EACH tablet Discontinued 1 {tbl} PO DAILY September 16, 2019 1:00am September 22, 2024 10:51am Check with primary doctor Start: 09-16-2019 End: 09-22-2024 take 1 tablet by mouth once daily Vit No.109-Bwzq-Dayhr 1 EACH tablet Discontinued 1 {tbl} PO DAILY September 16, 2019 1:00am September 22, 2024 10:51am Problems Active Problems Problem Classification Problem Date Documented Date Episodic/Chronic Attention-deficit, conduct, and disruptive behavior disorders (20 sources) Attention deficit hyperactivity disorder; Translations: [Attention-deficit hyperactivity disorder, unspecified type] 09-22-2024 Chronic Attention-deficit, conduct, and disruptive behavior disorders (2 sources) Attention-deficit hyperactivity disorder, unspecified type; Translations: [Attention-deficit hyperactivity disorder, unspecified type] Onset: 04-28-2025 Chronic Contraceptive and procreative management (2 sources) Patient encounter status; Translations: [Encounter for removal of intrauterine contraceptive device] 03-26-2024 Episodic Immunizations and screening for infectious disease (1 source) Encounter for immunization; Translations: [Encounter for immunization] Onset: 02-11-2025 Episodic Menstrual disorders (1 source) Break-through bleeding; Translations: [Excessive and frequent menstruation with irregular cycle] 04-15-2024 Chronic Other complications of (20 sources) High risk ; Translations: [Supervision of high risk , unspecified, unspecified trimester] 02-11-2025 Episodic Comment on above: PRR, , ROXANA , PC Elijah Stephens, Tony Other complications of (20 sources) RhD negative; Translations: [Other specified related conditions, unspecified trimester] 02-11-2025 Episodic Comment on above: Rhogam 28 wks & PRN Bleeding. Given 02/11/25 Other complications of (20 sources) Fundal height high for dates; Translations: [Uterine size-date discrepancy, unspecified trimester] 04-08-2025 Episodic Comment on above: 36 wk EFW 46%, AC 67 % 36 wk EFW 46%, AC 67 % BRE 10 on 04/28 Other complications of (2 sources) Uterine size-date discrepancy, unspecified trimester; Translations: [Uterine size-date discrepancy, unspecified trimester] Onset: 04-28-2025 Episodic Other complications of (2 sources) Supervision of high risk , unspecified, third trimester; Translations: [Supervision of high risk , unspecified, third trimester] Onset: 04-28-2025 Episodic Other complications of (2 sources) Other specified related conditions, third trimester; Translations: [Other specified related conditions, third trimester] Onset: 04-28-2025 Episodic Other complications of (1 source) Uterine size-date discrepancy, third trimester; Translations: [Uterine size-date discrepancy, third trimester] Onset: 05-03-2025 Episodic Other complications of (1 source) Supervision of high risk , unspecified, unspecified trimester; Translations: [Supervision of high risk , unspecified, unspecified trimester] Onset: 02-17-2025 Episodic Other complications of (1 source) Other specified related conditions, unspecified trimester; Translations: [Other specified related conditions, unspecified trimester] Onset: 02-11-2025 Episodic Other and delivery including normal (20 sources) Vaginal delivery; Translations: [Encounter for full-term uncomplicated delivery] 09-22-2024 Episodic Comment on above: declined NIPT & Qureshi ier testing, nl anatomy Neg GBS. declined NI PT & Carrier testing, nl anatomy Other skin disorders (1 source) Acne; Translations: [Other acne] 04-15-2024 Episodic Residual codes; unclassified (2 sources) 39 weeks gestation of ; Translations: [39 weeks gestation of ] Onset: 04-28-2025 Episodic Residual codes; unclassified (2 sources) Unspecified blood type, Rh negative; Translations: [Unspecified blood type, Rh negative] Onset: 04-28-2025 Episodic Residual codes; unclassified (1 source) 36 weeks gestation of ; Translations: [36 weeks gestation of ] Onset: 04-08-2025 Episodic Residual codes; unclassified (1 source) 33 weeks gestation of ; Translations: [33 weeks gestation of ] Onset: 03-22-2025 Episodic Residual codes; unclassified (1 source) 31 weeks gestation of ; Translations: [31 weeks gestation of ] Onset: 03-09-2025 Episodic Unclassified (3 sources) ENCOUNTER FOR SCREENING FOR COVID-19; Translations: [ENCOUNTER FOR SCREENING FOR COVID-19] Onset: 01-12-2021 Past or Other Problems Problem Classification Problem Date Documented Da te Episodic/Chronic Residual codes; unclassified (1 source) 18 weeks gestation of ; Translations: [18 weeks gestation of ] Onset: 12-02-2024 Episodic Residual codes; unclassified (1 source) 9 weeks gestation of ; Translations: [9 weeks gestation of ] Onset: 10-02-2024 Episodic Results Test Name Value Interpretation Reference Range Facil ity Laboratory - Chemistry and C hemistry - challengeOrdered By: Pamela Beebe on 05-05-2025 Glucose Ql (U) Negative [facility] Laboratory - UrinalysisOrder ed By: Pamela Beebe on 05-05-2025 Protein Ql (U) Negative [facility] Humanities Professor Office Visit Reporton 05-05-2025 Humanities Professor Office Visit Report [facility]'s [address], [address] [place] [address] OFFICE VISIT Date of Service: 05/05/25 MR#: [id number] Acct: [id number] Name: RISA VELA Rep #: [id number] : 1995 Provider: Dr. Pamela pulliam MD Age/Sex: 30/F Location: [facility] Status: Signed Intake Vital Signs 03/09/25 09:45 04/28/25 12:14 05/05/25 09:58 Height 5 ft 7 in 5 ft 7 in 5 ft 7 in Weight: 163 lb 2 oz BMI 25.5 BP 103/71 Intake Visit Reasons: 40 wk ob *Happy due date* 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 Is patient in pain?: No Allergies No Known Allergies Allergy (Verified 05/05/25 10:05) Medications ???Medication ???Instructions ???Recorded ???Confirmed ???Type PNV 153-FA 400 mcg-om3 35 mg-dha 1 tab PO DAILY 09/22/24 05/05/25 H istory 25 mg-epa 5 mg-fish oil chew tablet ondansetron HCl 4 mg tablet 4 mg PO Q4H #60 tabs 12/02/2404/20 Rx Last Menstrual Period: 07/29/24 Zika: Zika virus screening: Negative : No PFSH PFSH Medical History Vaginal delivery Depression Surgical History H/O arthroscopic knee surgery Bat[place] teeth extracted Family History Grandfather Heart disease Paternal Cancer Paternal- skin cancer Social History adopted: No household members: spouse and children number of children: 2 current occupational status: employed 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 current occupational exposures/hazards: No pets and animals: Yes pets and animals: dog(s) history of recent travel: Yes ([place], [place], [place], [place], [place], [place]) out of state: Yes out of country: No Smoking Status: Never smoker alcohol intake: current alcohol intake frequency: holidays/special occasions only details: Not while substance use type: does not use well-balanced diet: daily or most days caffeine: No eating out: rarely or never during the past year weight has: remained stable what type of physical activity do you participate in: running and other details: crossfit frequency: 5-6 times per week duration: 45-60 minutes/day romie/adventist: Christianity seatbelt use: always do you feel safe at home: Yes additional social history: Ismael Rodriguez History 3 Elective abortions Hx Para 2 Spontaneous abortions Hx # Term Pregnancies Ectopic pregnancies Hx # Pregnancies Multiple births # of living children 2 Past Pregnancies Del. Date Name GA/Weeks Outcome Route Bth Weight Infant Gen Labor Lgth Anesthesia Del Locatn Provider FOB 09/16/19 Angelo 37 live - full term 7#2oz Male 16 hr epidural [facility] Dr. Nadiya Jimenez 08/09/21 Elijah 39 live - full term 7#12oz Male 3 Hrs none [facility] Dr. Dheeraj Jimenez Delivery Date: 09/16/19 Last Updated by: Maru Kingsley SROM HPI 40 wk ob *Happy due date* Details: RISA VELA is a 30 year old who presents for routine OB visit. OB Visit ROXANA Calculator Estimated Delivery Date Method Current WG Current Estimate 05/05/25 LMP (Certain) 40w 0d Other Estimates 05/07/25 Ultrasound #1 39w 5d Expected Delivery Route/Plan Labor Preferences- CB/BF classes: no labor support person: Tony labor intervention preferences: [] pain management options preferred: limited cut cord/dad catch: cord : yes PP control planned: discussed discussed possible routes of delivery and associated risks: [] special requests: [] Specific Issue/Plans Covid status: [] Flu vaccine: [] Tdap vaccine: given Rhogam: given 02/11/25 LARC form signed: yes Problem list reviewed and updated with the most current plan of care details and appropriate orders placed. Relevant counseling for the gestational age provided. Continue routine care and follow up unless otherwise noted in visit notes/problem list details Initial Weight: Not Recorded Date -???-???-???-???-?? ?-???-???-???-???-? ??-???-???- EGA Weight BP Urine Prot -???-???-???-???-?? ?-???-???-???-???-? ??-???-???- Glucose FHR FuHt Pres Dilation -???-???-???-???-?? ?-???-???-???-???-? ??-???-???- Effaced St Visit Note 10/02/24 -???-???-???-???-?? ?-???-???-???-???-? ??-???-???- 9w 2d 143 lb 97/62 -???-???-???-???-?? ?-???-???-???-???-? ??-???-???- 190 -???-???-???-???-?? ?-???-???-???-???-? ??-???-???- KW-CRL cons with dates. Declines NIPT 11/06/24 -???-???-???-???-?? ?-???-???-???-???-? ??-???-???- 14w 2d 145 lb 110/69 Negative -???-???-???-???-?? ?-???-???-???-???-? ??-???-???- Negative 143 -???-???-???-???-?? ?-???-???-???-???-? ??-???-???- LC- no vb/cr amping (more content not included)... Normal [facility] Laboratory - Chemistry and C hemistry - challengeOrdered By: Elizabeth Martin on 04-28-2025 Glucose Ql (U) Negative [facility] Laboratory - UrinalysisOrder ed By: Elizabeth Martin on 04-28-2025 Protein Ql (U) Negative [facility] OB Limited (No Biometrics)on 04-28-2025 OB Limited (No Biometrics) [facility] Imaging Services [address], [place] [address] OB Limited (No Biometrics) MR#: [id number] Acct: [id number] Name: RISA VELA Rep #: [id number] : 1995 F 30 From: Dominick fagan MD PCP: Dr. Griselda Alvarado MD Status: DEP CLI Study: OB Limited (No Biometrics) Date of Exam: 04/28 Exam# [id number] Ordering Dr: Elizabeth Martin M PROCEDURE: OB LIMITED (NO BIOMETRICS) 04/28/2025 REASON FOR EXAM: MEASURING LESS THAN GESTATIONAL AGE. NEED BRE TECHNIQUE: OB LIMITED (NO BIOMETRICS) COMPARISON: Prior study dated April 14, 2025. FINDINGS Number: 1 Position: Vertex Placental Position: Anterior and not low-lying. Placental Abnormalities: No evidence of previa. ESTIMATED GESTATIONAL AGE: Baseline: 39 weeks and 0 days ESTIMATED DATE OF DELIVERY: Baseline: May 05, 2025. BIOPHYSICAL ASSESSMENT: Amniotic Fluid Volume: 4.1 cm Amniotic Fluid Index: 10.3 (8-24 cm normal range) Cardiac Motion: 145 beats per minute (average) Trunk and Limb Motion: Present. MATERNAL ANATOMY: Adnexa: Neither maternal ovary is successfully identified. US/OB Limited (No Biometrics) IMPRESSION: Single live intrauterine gestation with a mean gestational age of 39 weeks. Reading Location: [place] [address] CC: HARJEET Martin; Dr. 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 Griselda Alvarado MD Status:DEP CLI Y Location: [facility] HPI - General HPI Narrative RISA VELA, is a 30 y/o @ 39 weeks who presents to D for an BRE. She was sent in per Elizabeth Martin CNM. She denies loss of fluid, vaginal bleeding, or dec fm. Maternal Data Information ROXANA Calculator Estimated Delivery Date Method Current WG Current Estimate 05/05/25 LMP (Certain) 39w 0d Other Estimates 05/07/25 Ultrasound #1 38w 5d PFSH PFSH Medical History Vaginal delivery Depression Home Medications ???Medication ???Instructions ???Recorded ???Last Taken ???Type PNV 153-FA 400 mcg-om3 35 mg-dha 1 tab PO DAILY 09/22/24 04/27/25 2 1:00 History 25 mg-epa 5 mg-fish oil chew tablet 1 TAB ondansetron HCl 4 mg tablet 4 mg PO Q4H #60 tabs 12/02/24 Unkn own Rx Allergy/AdvReac Type Severity Reaction Status Date / Time No Known Allergies Allergy Verified 04/28/25 12:19 Family History Grandfather Heart disease Paternal Cancer Paternal- skin cancer Surgical History H/O arthroscopic knee surgery Batson teeth extracted Social History adopted: No household members: spouse and children number of children: 2 current occupational status: employed 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 current occupational exposures/hazards: No pets and animals: Yes pets and animals: dog(s) history of recent travel: Yes ([place], [place], [place], , [place], [place]) out of state: Yes out of country: No Smoking Status: Never smoker alcohol intake: current alcohol intake frequency: holidays/special occasions only details: Not while substance use type: does not use well-balanced diet: daily or most days caffeine: No eating out: rarely or never during the past year weight has: remained stable what type of physical activity do you participate in: running and other details: crossfit frequency: 5-6 times per week duration: 45-60 minutes/day romie/adventist: Christianity seatbelt use: always do you feel safe at home: Yes additional social history: Ismael Rodriguez History 3 Elective abortions Hx Para 2 Spontaneous abortions Hx # Term Pregnancies Ectopic pregnancies Hx # Pregnancies Multiple births # of living children 2 Past Pregnancies Del. Date Name GA/Weeks Outcome Route Bth Weight Infant Gen Labor Lgth Anesthesia Del Locatn Provider FOB 09/16/19 Angelo 37 live - full term 7#2oz Male 16 hr epidural [facility] Dr. Nadiya Jimenez 08/09/21 Elijah 39 live - full term 7#12oz Male 3 Hrs none [facility] Dr. Dheeraj Jimenez Delivery Date: 09/16/19 Last Updated by: Maru Kingsley [facility] Visit Details Expected Delivery Route/Plan Labor Preferences- CB/BF classes: no labor support person: Tony labor intervention preferences: [] pain management options preferred: limited cut cord/dad catch: cord : yes PP control planned: discussed discussed possible routes of delivery and associated risks: [] special requests: [] Plans Covid status: [] Flu vaccine: [] Tdap vaccine: given Rhogam: given 02/11/25 LARC form signed: yes Problem list reviewed and updated with the most current plan of care details and appropriate orders placed. Relevant counseling for the gestational age provided. Continue routine care and follow up unless otherwise noted in visit notes/problem list details OB Flowsheet Initial Weight: Not Recorded Date -???-???-???-???-?? ?-???-???-???-???-? ??-???-???- EGA Weight BP Urine Prot -???-???-???-???-?? ?-???-???-???-???-? ??-???-???- Glucose FHR FuHt Pres Dilation -???-???-???-???-?? ?-???-???-???-???-? ??-???-???- Effaced St Visit Note 10/02/24 -???-???-???-???-?? ?-???-???-???-???-? ??-???-???- 9w 2d 143 lb 97/62 -???-???-???-???-?? ?-???-???-???-???-? ??-???-???- 190 -???-???-???-???-?? ?-???-???-???-???-? ??-???-???- KW-CRL cons with dates. Declines NIPT 11/06/24 -???-???-???-???-?? ?-???-???-???-???-? ??-???-???- 14w 2d 145 lb 110/69 Negative -???-???-???-???-?? ?-???-???-???-???-? ??-???-???- Negative 143 -???-???-???-???-?? ?-???-???-???-???-? ??-???-???- LC- no vb/cr amping. declines afp. anatomy ordered. 12/02/24 -???-???-???-???-?? ?-???-???-???-???-? ??-???-???- 18w 0d 153 lb 4 oz 112/74 Negative -???-???-???-???-?? ?-???-???-???-???-? ??-???-???- Negative 140 -???-???-?? (more content not included)... Normal [facility] Humanities Professor Office Visit Reporton 04-28-2025 Humanities Professor Office Visit Report [facility]'s [address], [address] [place] [address] OFFICE VISIT Date of Service: 04/28/25 MR#: [id number] Acct: [id number] Name: RISA VELA Rep #: [id number] : 1995 Provider: HARJEET Serrano ams Age/Sex: 30/F Location: [facility] Status: Signed Intake Vital Signs 03/09/25 09:45 04/21/25 09:54 04/28/25 11:00 Height 5 ft 7 in 5 ft 7 in 5 ft 7 in Weight: 161 lb 2 oz BMI 25.2 BP 108/68 Intake Visit Reasons: 39 wk ob 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 Is patient in pain?: No Allergies No Known Allergies Allergy (Verified 04/28/25 11:00) Medications ???Medication ???Instructions ???Recorded ???Confirmed ???Type PNV 153-FA 400 mcg-om3 35 mg-dha tab PO 09/22/24 04/28/25 History 25 mg-epa 5 mg-fish oil chew tablet ondansetron HCl 4 mg tablet 4 mg PO Q4H #60 tabs 12/02/24 07/0 07/15 Rx Last Menstrual Period: 07/29/24 : No PFSH PFSH Medical History Vaginal delivery Depression Surgical History H/O arthroscopic knee surgery Batson teeth extracted Family History Grandfather Heart disease Paternal Cancer Paternal- skin cancer Social History adopted: No household members: spouse and children number of children: 2 current occupational status: employed 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 current occupational exposures/hazards: No pets and animals: Yes pets and animals: dog(s) history of recent travel: Yes ([place], [place], [place], , [place], [place]) out of state: Yes out of country: No Smoking Status: Never smoker alcohol intake: current alcohol intake frequency: holidays/special occasions only details: Not while substance use type: does not use well-balanced diet: daily or most days caffeine: No eating out: rarely or never during the past year weight has: remained stable what type of physical activity do you participate in: running and other details: crossfit frequency: 5-6 times per week duration: 45-60 minutes/day romie/adventist: Christianity seatbelt use: always do you feel safe at home: Yes additional social history: Ismael Rodriguez History 3 Elective abortions Hx Para 2 Spontaneous abortions Hx # Term Pregnancies Ectopic pregnancies Hx # Pregnancies Multiple births # of living children 2 Past Pregnancies Del. Date Name GA/Weeks Outcome Route Bth Weight Gen Labor Lgth Anesthesia Del Locatn Provider FOB 09/16/19 Angelo 37 live - full term 7#2oz Male 16 hr epidural [facility] Dr. Nadiya Jimenez 08/09/21 Elijah 39 live - full term 7#12oz Male 3 Hrs none [facility] Dr. Dheeraj Jimenez Delivery Date: 09/16/19 Last Updated by: Maru [facility] HPI 39 wk ob Details: RISA VELA is a 30 year old who presents for routine OB visit. OB Visit ROXANA Calculator Estimated Delivery Date Method Current WG Current Estimate 05/05/25 LMP (Certain) 39w 0d Other Estimates 05/07/25 Ultrasound #1 38w 5d Expected Delivery Route/Plan Labor Preferences- CB/BF classes: no labor support person: Tony labor intervention preferences: [] pain management options preferred: limited cut cord/dad catch: cord : yes PP control planned: discussed discussed possible routes of delivery and associated risks: [] special requests: [] Specific Issue/Plans Covid status: [] Flu vaccine: [] Tdap vaccine: given Rhogam: given 02/11/25 LARC form signed: yes Problem list reviewed and updated with the most current plan of care details and appropriate orders placed. Relevant counseling for the gestational age provided. Continue routine care and follow up unless otherwise noted in visit notes/problem list details Initial Weight: Not Recorded Date -???-???-???-???-?? ?-???-???-???-???-? ??-???-???- EGA Weight BP Urine Prot -???-???-???-???-?? ?-???-???-???-???-? ??-???-???- Glucose FHR FuHt Pres Dilation -???-???-???-???-?? ?-???-???-???-???-? ??-???-???- Effaced St Visit Note 10/02/24 -???-???-???-???-?? ?-???-???-???-???-? ??-???-???- 9w 2d 143 lb 97/62 -???-???-???-???-?? ?-???-???-???-???-? ??-???-???- 190 -???-???-???-???-?? ?-???-???-???-???-? ??-???-???- KW-CRL cons with dates. Declines NIPT 11/06/24 -???-???-???-???-?? ?-???-???-???-???-? ??-???-???- 14w 2d 145 lb 110/69 Negative -???-???-???-???-?? ?-???-???-???-???-? ??-???-???- Negative 143 -???-???-???-???-?? ?-???-???-???-???-? ??-???-???- LC- no vb/cr amping. declines afp. anatomy ordered. 12/02/24 -???-???-???-???-?? ?-???-???-???-???-? ??-???-???- 18w (more content not included)... Normal [facility] Laboratory - Chemistry and C hemistry - challengeOrdered By: Elle Winter on 04-21-2025 Glucose Ql (U) Negative [facility] Laboratory - UrinalysisOrder ed By: Elle Winter on 04-21-2025 Protein Ql (U) Negative [facility] Humanities Professor Office Visit Reporton 04-21-2025 Humanities Professor Office Visit Report [facility]'s [address], [address] [place] [address] OFFICE VISIT Date of Service: 04/21/25 MR#: [id number] Acct: [id number] Name: RISA VELA Rep #: [id number] : 1995 Provider: Dr. Elle Ayala DO Age/Sex: 30/F Location: [facility] Status: Signed Intake Vital Signs 03/09/25 09:45 04/15/25 13:03 04/21/25 09:53 04/21/25 09:54 Height 5 ft 7 in 5 ft 7 in 5 ft 7 in 5 ft 7 in Weight: 161 lb BMI 25.2 BP 117/73 Intake Visit Reasons: 38 wk ob 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 Is patient in pain?: No Allergies No Known Allergies Allergy (Verified 04/21/25 09:53) Medications ???Medication ???Instructions ???Recorded ???Confirmed ???Type PNV 153-FA 400 mcg-om3 35 mg-dha tab PO 09/22/24 04/21/25 History 25 mg-epa 5 mg-fish oil chew tablet ondansetron HCl 4 mg tablet 4 mg PO Q4H #60 tabs 12/02/2412/15 Rx Last Menstrual Period: 07/29/24 Zika: Zika virus screening: Negative : No PFSH PFSH Medical History Vaginal delivery Depression Surgical History H/O arthroscopic knee surgery Batson teeth extracted Family History Grandfather Heart disease Paternal Cancer Paternal- skin cancer Social History adopted: No household members: spouse and children number of children: 2 current occupational status: employed 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 current occupational exposures/hazards: No pets and animals: Yes pets and animals: dog(s) history of recent travel: Yes ([place], [place], [place], , [place], [place]) out of state: Yes out of country: No Smoking Status: Never smoker alcohol intake: current alcohol intake frequency: holidays/special occasions only details: Not while substance use type: does not use well-balanced diet: daily or most days caffeine: No eating out: rarely or never during the past year weight has: remained stable what type of physical activity do you participate in: running and other details: crossfit frequency: 5-6 times per week duration: 45-60 minutes/day romie/adventist: Christianity seatbelt use: always do you feel safe at home: Yes additional social history: Ismael Rodriguez History 3 Elective abortions Hx Para 2 Spontaneous abortions Hx # Term Pregnancies Ectopic pregnancies Hx # Pregnancies Multiple births # of living children 2 Past Pregnancies Del. Date Name GA/Weeks Outcome Route Bth Weight Infant Gen Labor Lgth Anesthesia Del Locatn Provider FOB 09/16/19 Angelo 37 live - full term 7#2oz Male 16 hr epidural [facility] Dr. Nadiya Jimenez 08/09/21 Elijah 39 live - full term 7#12oz Male 3 Hrs none [facility] Dr. Dheeraj Jimenez Delivery Date: 09/16/19 Last Updated by: Maru [facility]ley SROM HPI 38 wk ob Details: RISA VELA is a 30 year old who presents for routine OB visit. OB Visit ROXANA Calculator Estimated Delivery Date Method Current WG Current Estimate 05/05/25 LMP (Certain) 38w 0d Other Estimates 05/07/25 Ultrasound #1 37w 5d Expected Delivery Route/Plan Labor Preferences- CB/BF classes: no labor support person: Tony labor intervention preferences: [] pain management options preferred: limited cut cord/dad catch: cord : yes PP control planned: discussed discussed possible routes of delivery and associated risks: [] special requests: [] Specific Issue/Plans Covid status: [] Flu vaccine: [] Tdap vaccine: given Rhogam: given 02/11/25 LARC form signed: yes Problem list reviewed and updated with the most current plan of care details and appropriate orders placed. Relevant counseling for the gestational age provided. Continue routine care and follow up unless otherwise noted in visit notes/problem list details Initial Weight: Not Recorded Date -???-???-???-???-?? ?-???-???-???-???-? ??-???-???- EGA Weight BP Urine Prot -???-???-???-???-?? ?-???-???-???-???-? ??-???-???- Glucose FHR FuHt Pres Dilation -???-???-???-???-?? ?-???-???-???-???-? ??-???-???- Effaced St Visit Note 10/02/24 -???-???-???-???-?? ?-???-???-???-???-? ??-???-???- 9w 2d 143 lb 97/62 -???-???-???-???-?? ?-???-???-???-???-? ??-???-???- 190 -???-???-???-???-?? ?-???-???-???-???-? ??-???-???- KW-CRL cons with dates. Declines NIPT 11/06/24 -???-???-???-???-?? ?-???-???-???-???-? ??-???-???- 14w 2d 145 lb 110/69 Negative -???-???-???-???-?? ?-???-???-???-???-? ??-???-???- Negative 143 -???-???-???-???-?? ?-???-???-???-???-? ??-???-???- LC- no vb/cr amping. declines af (more content not included)... Normal [facility] Laboratory - Chemistry and C hemistry - challengeOrdered By: Pamela Beebe on 04-15-2025 Glucose Ql (U) Negative [facility] Laboratory - UrinalysisOrder ed By: Pamela Beebe on 04-15-2025 Protein Ql (U) Negative [facility] Humanities Professor Office Visit Reporton 04-15-2025 Humanities Professor Office Visit Report [facility]'s [address], [address] [place] [address] OFFICE VISIT Date of Service: 04/15/25 MR#: [id number] Acct: [id number] Name: RISA VELA Rep #: [id number] : 1995 Provider: DIVORCE ATTORNEY-C Isabelle Hast ings Age/Sex: 30/F Location: [facility] Status: Signed Intake Vital Signs 03/09/25 09:45 04/08/25 15:50 04/15/25 13:02 04/15/25 13:03 Height 5 ft 7 in 5 ft 7 in 5 ft 7 in 5 ft 7 in Weight: 165 lb 6 oz BMI 25.9 BP 105/70 Intake Visit Reasons: 37 wk ob 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 Is patient in pain?: No Allergies No Known Allergies Allergy (Verified 04/15/25 13:03) Medications ???Medication ???Instructions ???Recorded ???Confirmed ???Type PNV 153-FA 400 mcg-om3 35 mg-dha tab PO 09/22/24 04/15/25 History 25 mg-epa 5 mg-fish oil chew tablet ondansetron HCl 4 mg tablet 4 mg PO Q4H #60 tabs 12/02/2403/22 Rx Last Menstrual Period: 07/29/24 Zika: Zika virus screening: Negative : No PFSH PFSH Medical History Vaginal delivery Depression Surgical History H/O arthroscopic knee surgery Batson teeth extracted Family History Grandfather Heart disease Paternal Cancer Paternal- skin cancer Social History adopted: No household members: spouse and children number of children: 2 current occupational status: employed 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 current occupational exposures/hazards: No pets and animals: Yes pets and animals: dog(s) history of recent travel: Yes ([place], [place], [place], [place], [place], [place]) out of state: Yes out of country: No Smoking Status: Never smoker alcohol intake: current alcohol intake frequency: holidays/special occasions only details: Not while substance use type: does not use well-balanced diet: daily or most days caffeine: No eating out: rarely or never during the past year weight has: remained stable what type of physical activity do you participate in: running and other details: crossfit frequency: 5-6 times per week duration: 45-60 minutes/day romie/adventist: Christianity seatbelt use: always do you feel safe at home: Yes additional social history: Ismael Rodriguez History 3 Elective abortions Hx Para 2 Spontaneous abortions Hx # Term Pregnancies Ectopic pregnancies Hx # Pregnancies Multiple births # of living children 2 Past Pregnancies Del. Date Name GA/Weeks Outcome Route Bth Weight Infant Gen Labor Lgth Anesthesia Del Locatn Provider FOB 09/16/19 Angelo 37 live - full term 7#2oz Male 16 hr epidural [facility] Dr. Nadiya Jimenez 08/09/21 Elijah 39 live - full term 7#12oz Male 3 Hrs none [facility] Dr. Dheeraj Jimenez Delivery Date: 09/16/19 Last Updated by: Maru [facility]OM HPI 37 wk ob Details: RISA VELA is a 30 year old who presents for routine OB visit. OB Visit ROXANA Calculator Estimated Delivery Date Method Current WG Current Estimate 05/05/25 LMP (Certain) 37w 1d Other Estimates 05/07/25 Ultrasound #1 36w 6d Expected Delivery Route/Plan Labor Preferences- CB/BF classes: no labor support person: Tony labor intervention preferences: [] pain management options preferred: limited cut cord/dad catch: cord : yes PP control planned: discussed discussed possible routes of delivery and associated risks: [] special requests: [] Specific Issue/Plans Covid status: [] Flu vaccine: [] Tdap vaccine: given Rhogam: given 02/11/25 LARC form signed: yes Problem list reviewed and updated with the most current plan of care details and appropriate orders placed. Relevant counseling for the gestational age provided. Continue routine care and follow up unless otherwise noted in visit notes/problem list details Initial Weight: Not Recorded Date -???-???-???-???-?? ?-???-???-???-???-? ??-???-???- EGA Weight BP Urine Prot -???-???-???-???-?? ?-???-???-???-???-? ??-???-???- Glucose FHR FuHt Pres Dilation -???-???-???-???-?? ?-???-???-???-???-? ??-???-???- Effaced St Visit Note 10/02/24 -???-???-???-???-?? ?-???-???-???-???-? ??-???-???- 9w 2d 143 lb 97/62 -???-???-???-???-?? ?-???-???-???-???-? ??-???-???- 190 -???-???-???-???-?? ?-???-???-???-???-? ??-???-???- KW-CRL cons with dates. Declines NIPT 11/06/24 -???-???-???-???-?? ?-???-???-???-???-? ??-???-???- 14w 2d 145 lb 110/69 Negative -???-???-???-???-?? ?-???-???-???-???-? ??-???-???- Negative 143 -???-???-???-???-?? ?-???-???-???-???-? ??-???-???- LC- no vb/cr amping. declines afp. anatomy o (more content not included)... Normal [facility] OB Limited With Biometricson 04-14-2025 OB Limited With Biometrics [facility] [address] [place] [address] OB Limited With Biometrics MR#: [id number] Acct: [id number] Name: RISA VELA Rep #: [id number] : 1995 F 30 From: Dominick fagan MD PCP: Dr. Griselda Alvarado MD Status: [facility] Study: OB Limited With Biometrics Date of Exam: 04/14 Exam# [id number] Ordering Dr: Elizabeth Martin CNM ADDENDUM by Dr. Dominick Rice MD on 04/26/25 at 1509 position is cephalic. Reading Location: [facility] 04/26/25 1509 Date cc: AHRJEET Martin; Dr. Griselda Alvarado MD * Signed PROCEDURE: OB LIMITED WITH BIOMETRICS 04/14/2025 REASON FOR EXAM: S TECHNIQUE: OB LIMITED WITH BIOMETRICS COMPARISON: None FINDINGS LMP: July 29, 2024. Number: 1 Position: Breech Placental Position: Anterior and not low-lying Placental Abnormalities: No evidence of previa. DIMENSIONS: Biparietal Diameter: 8.9 cm: 36 weeks and 1 day: 42nd percentile/ Head Circumference: 32.5 cm: 36 weeks and 5 days: 20 percentile/ Abdominal Circumference: 33.2 cm: 37 weeks and 1 day: 67 percentile/ Femur Length: 6.9 cm: 35 weeks and 3 days: 14 percentile/ ESTIMATED WEIGHT: 2991 g plus/-449 g ESTIMATED WEIGHT PERCENTILE (24+ weeks): 46 ESTIMATED GESTATIONAL AGE: Baseline: 37 weeks and 0 days By Ultrasound: 36 weeks and 5 days ESTIMATED DATE OF DELIVERY: Baseline: May 05, 2025 By Ultrasound: May 07, 2025 BIOPHYSICAL ASSESSMENT: Amniotic Fluid Volume: 5.2 cm Amniotic Fluid Index: 10.3 (8-24 cm normal range) Cardiac Motion: 144 beats per minute (average) Trunk and Limb Motion: Present. MATERNAL ANATOMY: Adnexa: Neither maternal ovary is successfully identified. US/OB Limited With Biometrics IMPRESSION: Single live intrauterine gestation with a mean gestational age of 36 weeks and 5 days. Reading Location: [id number] CC: HARJEET Martin; Dr. Griselda Alvarado MD [employer] Power[employer] Mechanic: Signed Normal [facility] Rule out Beta Strep (Grp. B) on 04-12-2025 PJ Group B Beta Streptococcus is not isolated. Normal [facility] Comment on above: Performed By: #### M [phone] ####[facility] [id number] [place], [address] Laboratory - Chemistry and C hemistry - challengeOrdered By: Elizabeth Martin on 04-08-2025 Glucose Ql (U) Negative [facility] Laboratory - UrinalysisOrder ed By: Elizabeth Martin on 04-08-2025 Protein Ql (U) Negative [facility] Humanities Professor Office Visit Reporton 04-08-2025 Humanities Professor Office Visit Report [facility]'s [address], [address] [place] [address] OFFICE VISIT Date of Service: 04/08/25 MR#: [id number] Acct: [id number] Name: RISA VELA Rep #: [id number] : 1995 Provider: HARJEET Serrano [facility] Age/Sex: 30/F Location: [facility] Status: Signed Intake Vital Signs 02/25/25 13:05 03/22/25 10:57 04/08/25 15:50 Height 5 ft 7 in 5 ft 7 in 5 ft 7 in Weight: 162 lb BMI 25.3 BP 115/65 Intake Visit Reasons: 36 wk ob Chief Complaint: 36 Week OB 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 Is patient in pain?: No Allergies No Known Allergies Allergy (Verified 04/08/25 15:50) Medications ???Medication ???Instructions ???Recorded ???Confirmed ???Type PNV 153-FA 400 mcg-om3 35 mg-dha tab PO 09/22/24 04/08/25 History 25 mg-epa 5 mg-fish oil chew tablet ondansetron HCl 4 mg tablet 4 mg PO Q4H #60 tabs 12/02/2403/21 Rx Last Menstrual Period: 07/29/24 Zika: Zika virus screening: Negative : No PFSH PFSH Medical History Vaginal delivery Depression Surgical History H/O arthroscopic knee surgery Batson teeth extracted Family History Grandfather Heart disease Paternal Cancer Paternal- skin cancer Social History adopted: No household members: spouse and children number of children: 2 current occupational status: employed 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 current occupational exposures/hazards: No pets and animals: Yes pets and animals: dog(s) history of recent travel: Yes ([place], [place], [place], [place], [place], [place]) out of state: Yes out of country: No Smoking Status: Never smoker alcohol intake: current alcohol intake frequency: holidays/special occasions only details: Not while substance use type: does not use well-balanced diet: daily or most days caffeine: No eating out: rarely or never during the past year weight has: remained stable what type of physical activity do you participate in: running and other details: crossfit frequency: 5-6 times per week duration: 45-60 minutes/day romie/adventist: Christianity seatbelt use: always do you feel safe at home: Yes additional social history: Ismael Rodriguez History 3 Elective abortions Hx Para 2 Spontaneous abortions Hx # Term Pregnancies Ectopic pregnancies Hx # Pregnancies Multiple births # of living children 2 Past Pregnancies Del. Date Name GA/Weeks Outcome Route Bth Weight Gen Labor Lgth Anesthesia Del Locatn Provider FOB 09/16/19 Angelo 37 live - full term 7#2oz Male 16 hr epidural [facility] Dr. Nadiya Jimenez 08/09/21 Elijah 39 live - full term 7#12oz Male 3 Hrs none [facility] Dr. Dheeraj Jimenez Delivery Date: 09/16/19 Last Updated by: Maru Kingsley SROM HPI 36 wk ob Details: RISA VELA is a 30 year old who presents for routine OB visit. OB Visit ROXANA Calculator Estimated Delivery Date Method Current WG Current Estimate 05/05/25 LMP (Certain) 36w 1d Other Estimates 05/07/25 Ultrasound #1 35w 6d Expected Delivery Route/Plan Labor Preferences- CB/BF classes: no labor support person: Tony labor intervention preferences: [] pain management options preferred: limited cut cord/dad catch: cord : yes PP control planned: discussed discussed possible routes of delivery and associated risks: [] special requests: [] Specific Issue/Plans Covid status: [] Flu vaccine: [] Tdap vaccine: given Rhogam: given 02/11/25 LARC form signed: yes Problem list reviewed and updated with the most current plan of care details and appropriate orders placed. Relevant counseling for the gestational age provided. Continue routine care and follow up unless otherwise noted in visit notes/problem list details Initial Weight: Not Recorded Date -???-???-???-???-?? ?-???-???-???-???-? ??-???-???- EGA Weight BP Urine Prot -???-???-???-???-?? ?-???-???-???-???-? ??-???-???- Glucose FHR FuHt Pres Dilation -???-???-???-???-?? ?-???-???-???-???-? ??-???-???- Effaced St Visit Note 10/02/24 -???-???-???-???-?? ?-???-???-???-???-? ??-???-???- 9w 2d 143 lb 97/62 -???-???-???-???-?? ?-???-???-???-???-? ??-???-???- 190 -???-???-???-???-?? ?-???-???-???-???-? ??-???-???- KW-CRL cons with dates. Declines NIPT 11/06/24 -???-???-???-???-?? ?-???-???-???-???-? ??-???-???- 14w 2d 145 lb 110/69 Negative -???-???-???-???-?? ?-???-???-???-???-? ??-???-???- Negative 143 -???-???-???-???-?? ?-???-???-???-???-? ??-???-???- LC- no vb/cr amping. declines afp. (more content not included)... Normal [facility] Screening beta-hemolytic Str eptococcus cultureOrdered By: Elizabeth Martin on 04-08-2025 Beta-hemolytic Streptococcus culture Group B Beta Streptococcus is not isolated. [facility] Laboratory - Chemistry and C hemistry - challengeOrdered By: Elizabeth Martin on 03-22-2025 Glucose Ql (U) Negative [facility] Laboratory - UrinalysisOrder ed By: Elizabeth Martin on 03-22-2025 Protein Ql (U) Negative [facility] Humanities Professor Office Visit Reporton 03-22-2025 Humanities Professor Office Visit Report [facility]'[address], [address] [place] [address] OFFICE VISIT Date of Service: 03/22/25 MR#: [id number] Acct: [id number] Name: RISA VELA Rep #: [id number] : 1995 Provider: HARJEET Serrano ams Age/Sex: 30/F Location: [facility] Status: Signed Intake Vital Signs 02/11/25 10:10 03/09/25 09:45 03/22/25 10:57 Height 5 ft 7 in 5 ft 7 in 5 ft 7 in Weight: 161 lb 2 oz BMI 25.2 BP 112/68 Intake Visit Reasons: 34 wk ob Chief Complaint: 34wk OB 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 Is patient in pain?: No Allergies No Known Allergies Allergy (Verified 03/22/25 10:55) Medications ???Medication ???Instructions ???Recorded ???Confirmed ???Type PNV 153-FA 400 mcg-om3 35 mg-dha tab PO 12/03/24 06/02/25 History 25 mg-epa 5 mg-fish oil chew tablet ondansetron HCl 4 mg tablet 4 mg PO Q4H #60 tabs 12/02/2412/15 Rx Last Menstrual Period: 07/29/24 : Yes Have you fallen in the past year?: No PFSH PFSH Medical History Vaginal delivery Depression Surgical History H/O arthroscopic knee surgery Batson teeth extracted Family History Grandfather Heart disease Paternal Cancer Paternal- skin cancer Social History adopted: No household members: spouse and children number of children: 2 current occupational status: employed 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 current occupational exposures/hazards: No pets and animals: Yes pets and animals: dog(s) history of recent travel: Yes ([place], [place], [place], , [place], [place]) out of state: Yes out of country: No Smoking Status: Never smoker alcohol intake: current alcohol intake frequency: holidays/special occasions only details: Not while substance use type: does not use well-balanced diet: daily or most days caffeine: No eating out: rarely or never during the past year weight has: remained stable what type of physical activity do you participate in: running and other details: crossfit frequency: 5-6 times per week duration: 45-60 minutes/day romie/adventist: Christianity seatbelt use: always do you feel safe at home: Yes additional social history: Ismael Rodriguez History 3 Elective abortions Hx Para 2 Spontaneous abortions Hx # Term Pregnancies Ectopic pregnancies Hx # Pregnancies Multiple births # of living children 2 Past Pregnancies Del. Date Name GA/Weeks Outcome Route Bth Weight Gen Labor Lgth Anesthesia Del Locatn Provider FOB 09/16/19 Angelo 37 live - full term 7#2oz Male 16 hr epidural [facility] Dr. Nadiya Jimenez 08/09/21 Elijah 39 live - full term 7#12oz Male 3 Hrs none [facility] Dr. Dheeraj Jimenez Delivery Date: 09/16/19 Last Updated by: Maru Kingsley SROM HPI 34 wk ob Details: RISA VELA is a 30 year old who presents for routine OB visit. OB Visit ROXANA Calculator Estimated Delivery Date Method Current WG Current Estimate 05/05/25 LMP (Certain) 33w 5d Other Estimates 05/07/25 Ultrasound #1 33w 3d Expected Delivery Route/Plan Labor Preferences- CB/BF classes: no labor support person: Tony labor intervention preferences: [] pain management options preferred: limited cut cord/dad catch: cord : yes PP control planned: discussed discussed possible routes of delivery and associated risks: [] special requests: [] Specific Issue/Plans Covid status: [] Flu vaccine: [] Tdap vaccine: given Rhogam: given 02/11/25 LARC form signed: yes Problem list reviewed and updated with the most current plan of care details and appropriate orders placed. Relevant counseling for the gestational age provided. Continue routine care and follow up unless otherwise noted in visit notes/problem list details Initial Weight: Not Recorded Date -???-???-???-???-?? ?-???-???-???-???-? ??-???-???- EGA Weight BP Urine Prot -???-???-???-???-?? ?-???-???-???-???-? ??-???-???- Glucose FHR FuHt Pres Dilation -???-???-???-???-?? ?-???-???-???-???-? ??-???-???- Effaced St Visit Note 10/02/24 -???-???-???-???-?? ?-???-???-???-???-? ??-???-???- 9w 2d 143 lb 97/62 -???-???-???-???-?? ?-???-???-???-???-? ??-???-???- 190 -???-???-???-???-?? ?-???-???-???-???-? ??-???-???- KW-CRL cons with dates. Declines NIPT 11/06/24 -???-???-???-???-?? ?-???-???-???-???-? ??-???-???- 14w 2d 145 lb 110/69 Negative -???-???-???-???-?? ?-???-???-???-???-? ??-???-???- Negative 143 -???-???-???-???-?? ?-???-???-???-???-? ??-???-???- LC- no vb/cr amping. declines afp. anatomy ordered. (more content not included)... Normal [facility] Laboratory - Chemistry and C hemistry - challengeOrdered By: Elizabeth Martin on 03-09-2025 Glucose Ql (U) Negative [facility] Laboratory - UrinalysisOrder ed By: Elizabeth Martin on 03-09-2025 Protein Ql (U) Negative [facility] Humanities Professor Office Visit Reporton 03-09-2025 Humanities Professor Office Visit Report [facility]'s [address], [address] [place], [place] [address] OFFICE VISIT Date of Service: 03/09/25 MR#: [id number] Acct: [id number] Name: RISA VELA Rep #: [id number] : 1995 Provider: HARJEET Serrano ams Age/Sex: 30/F Location: [facility] [place] Status: Signed Intake Vital Signs 02/11/25 10:10 02/25/25 13:05 03/09/25 09:44 03/09/25 09:45 Height 5 ft 7 in 5 ft 7 in 5 ft 7 in 5 ft 7 in Weight: 159 lb 6 oz BMI 25.0 BP 101/66 Intake Visit Reasons: 32 wk ob Chief Complaint: 32wk ob 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 Is patient in pain?: No Allergies No Known Allergies Allergy (Verified 03/09/25 09:40) Medications ???Medication ???Instructions ???Recorded ???Confirmed ???Type PNV 153-FA 400 mcg-om3 35 mg-dha tab PO 09/22/24 03/09/25 History 25 mg-epa 5 mg-fish oil chew tablet ondansetron HCl 4 mg tablet 4 mg PO Q4H #60 tabs 12/02/2402/19 Rx Last Menstrual Period: 07/29/24 PFSH PFSH Medical History Vaginal delivery Depression Surgical History H/O arthroscopic knee surgery [place] teeth extracted Family History Grandfather Heart disease Paternal Cancer Paternal- skin cancer Social History adopted: No household members: spouse and children number of children: 2 current occupational status: employed 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 current occupational exposures/hazards: No pets and animals: Yes pets and animals: dog(s) history of recent travel: Yes ([place], [place], [place], , [place], [place]) out of state: Yes out of country: No Smoking Status: Never smoker alcohol intake: current alcohol intake frequency: holidays/special occasions only details: Not while substance use type: does not use well-balanced diet: daily or most days caffeine: No eating out: rarely or never during the past year weight has: remained stable what type of physical activity do you participate in: running and other details: crossfit frequency: 5-6 times per week duration: 45-60 minutes/day romie/adventist: Christianity seatbelt use: always do you feel safe at home: Yes additional social history: Ismael Rodriguez History 3 Elective abortions Hx Para 2 Spontaneous abortions Hx # Term Pregnancies Ectopic pregnancies Hx # Pregnancies Multiple births # of living children 2 Past Pregnancies Del. Date Name GA/Weeks Outcome Route Bth Weight Gen Labor Lgth Anesthesia Del Locatn Provider FOB 09/16/19 Angelo 37 live - full term 7#2oz Male 16 hr epidural [facility] Dr. Nadiya Jimenez 08/09/21 Elijah 39 live - full term 7#12oz Male 3 Hrs none [facility] Dr. Dheeraj Jimenez Delivery Date: 09/16/19 Last Updated by: Maru Kingsley SROM HPI 32 wk ob Details: RISA VELA is a 30 year old who presents for routine OB visit. OB Visit ROXANA Calculator Estimated Delivery Date Method Current WG Current Estimate 05/05/25 LMP (Certain) 31w 6d Other Estimates 05/07/25 Ultrasound #1 31w 4d Expected Delivery Route/Plan Labor Preferences- CB/BF classes: no labor support person: Tony labor intervention preferences: [] pain management options preferred: limited cut cord/dad catch: cord : yes PP control planned: discussed discussed possible routes of delivery and associated risks: [] special requests: [] Specific Issue/Plans Covid status: [] Flu vaccine: [] Tdap vaccine: given Rhogam: given 02/11/25 LARC form signed: yes Problem list reviewed and updated with the most current plan of care details and appropriate orders placed. Relevant counseling for the gestational age provided. Continue routine care and follow up unless otherwise noted in visit notes/problem list details Initial Weight: Not Recorded Date -???-???-???-???-?? ?-???-???-???-???-? ??-???-???- EGA Weight BP Urine Prot -???-???-???-???-?? ?-???-???-???-???-? ??-???-???- Glucose FHR FuHt Pres Dilation -???-???-???-???-?? ?-???-???-???-???-? ??-???-???- Effaced St Visit Note 10/02/24 -???-???-???-???-?? ?-???-???-???-???-? ??-???-???- 9w 2d 143 lb 97/62 -???-???-???-???-?? ?-???-???-???-???-? ??-???-???- 190 -???-???-???-???-?? ?-???-???-???-???-? ??-???-???- KW-CRL cons with dates. Declines NIPT 11/06/24 -???-???-???-???-?? ?-???-???-???-???-? ??-???-???- 14w 2d 145 lb 110/69 Negative -???-???-???-???-?? ?-???-???-???-???-? ??-???-???- Negative 143 -???-???-???-???-?? ?-???-???-???-???-? ??-???-???- LC- no vb/cr amping. declines afp. anatomy ordered. 12/02/24 -???-???-???-???-?? ?-? (more content not included)... Normal [facility] Laboratory - Chemistry and C hemistry - challengeOrdered By: Isabelle Matias on 02-25-2025 Glucose Ql (U) Negative [facility] Laboratory - UrinalysisOrder ed By: Isabelle Matias on 02-25-2025 Protein Ql (U) Negative [facility] Humanities Professor Office Visit Reporton 02-25-2025 Humanities Professor Office Visit Report [facility]'[address], [address] [place] [address] OFFICE VISIT Date of Service: 02/25/25 MR#: [id number] Acct: [id number] Name: RISA VELA Rep #: [id number] : 1995 Provider: ANTONIO dumont Age/Sex: 30/F Location: [facility] [place] Status: Signed Intake Vital Signs 01/28/25 13:03 02/11/25 10:10 02/25/25 13:05 Height 5 ft 7 in 5 ft 7 in 5 ft 7 in Weight: 161 lb 4 oz 161 lb 6 oz BMI 25.2 25.2 BP 106/64 93/56 L Intake Visit Reasons: 30 wk ob 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 Is patient in pain?: No Allergies No Known Allergies Allergy (Verified 02/25/25 13:06) Medications ???Medication ???Instructions ???Recorded ???Confirmed ???Type PNV 153-FA 400 mcg-om3 35 mg-dha tab PO 09/22/24 02/25/25 History 25 mg-epa 5 mg-fish oil chew tablet ondansetron HCl 4 mg tablet 4 mg PO Q4H #60 tabs 12/02/2406/14 Rx Last Menstrual Period: 07/29/24 Zika: Zika virus screening: Negative : Yes PFSH PFSH Medical History Vaginal delivery Depression Surgical History H/O arthroscopic knee surgery [place] teeth extracted Family History Grandfather Heart disease Paternal Cancer Paternal- skin cancer Social History adopted: No household members: spouse and children number of children: 2 current occupational status: employed 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 current occupational exposures/hazards: No pets and animals: Yes pets and animals: dog(s) history of recent travel: Yes ([place], [place], [place], [place], [place], [place]) out of state: Yes out of country: No Smoking Status: Never smoker alcohol intake: current alcohol intake frequency: holidays/special occasions only details: Not while substance use type: does not use well-balanced diet: daily or most days caffeine: No eating out: rarely or never during the past year weight has: remained stable what type of physical activity do you participate in: running and other details: crossfit frequency: 5-6 times per week duration: 45-60 minutes/day romie/adventist: Christianity seatbelt use: always do you feel safe at home: Yes additional social history: Ismael Rodriguez History 3 Elective abortions Hx Para 2 Spontaneous abortions Hx # Term Pregnancies Ectopic pregnancies Hx # Pregnancies Multiple births # of living children 2 Past Pregnancies Del. Date Name GA/Weeks Outcome Route Bth Weight Infant Gen Labor Lgth Anesthesia Del Locatn Provider FOB 09/16/19 Angelo 37 live - full term 7#2oz Male 16 hr epidural [facility] Dr. Nadiya Jimenez 08/09/21 Elijah 39 live - full term 7#12oz Male 3 Hrs none [facility] Dr. Dheeraj Jimenez Delivery Date: 09/16/19 Last Updated by: Maru Kingsley SROM HPI 30 wk ob Details: RISA VELA is a 30 year old who presents for routine OB visit. OB Visit ROXANA Calculator Estimated Delivery Date Method Current WG Current Estimate 05/05/25 LMP (Certain) 30w 1d Other Estimates 05/07/25 Ultrasound #1 29w 6d Expected Delivery Route/Plan Labor Preferences- CB/BF classes: no labor support person: Tony labor intervention preferences: [] pain management options preferred: limited cut cord/dad catch: cord : yes PP control planned: discussed discussed possible routes of delivery and associated risks: [] special requests: [] Specific Issue/Plans Covid status: [] Flu vaccine: [] Tdap vaccine: given Rhogam: given 02/11/25 LARC form signed: yes Problem list reviewed and updated with the most current plan of care details and appropriate orders placed. Relevant counseling for the gestational age provided. Continue routine care and follow up unless otherwise noted in visit notes/problem list details Initial Weight: Not Recorded Date -???-???-???-???-?? ?-???-???-???-???-? ??-???-???- EGA Weight BP Urine Prot -???-???-???-???-?? ?-???-???-???-???-? ??-???-???- Glucose FHR FuHt Pres Dilation -???-???-???-???-?? ?-???-???-???-???-? ??-???-???- Effaced St Visit Note 10/02/24 -???-???-???-???-?? ?-???-???-???-???-? ??-???-???- 9w 2d 143 lb 97/62 -???-???-???-???-?? ?-???-???-???-???-? ??-???-???- 190 -???-???-???-???-?? ?-???-???-???-???-? ??-???-???- KW-CRL cons with dates. Declines NIPT 11/06/24 -???-???-???-???-?? ?-???-???-???-???-? ??-???-???- 14w 2d 145 lb 110/69 Negative -???-???-???-???-?? ?-???-???-???-???-? ??-???-???- Negative 143 -???-???-???-???-?? ?-???-???-???-???-? ??-???-???- LC- no vb/cr amping. declines afp (more content not included)... Normal [facility] Absolute lymphocyte countOrd ered By: Elle Winter on 02-11-2025 Lymphocytes Auto (Unsp spec) [#/Vol] 1.83 10*3/uL 0.83-4.51 [facility] Absolute neutrophil countOrd ered By: Elle Winter on 02-11-2025 Neutrophils (Bld) [#/Vol] 5.5 10*3/uL 2.0-7.7 [facility] Automated lymphocyte count a s percentage of total leukocytesOrdered By: Elle Winter on 02-11-2025 Lymphocytes/100 WBC Auto (Unsp spec) 23.0 % 19-41 [facility] Basophil percentageOrdered B y: Elle Winter on 02-11-2025 Basophils/100 WBC (Bld) 0.3 % 0-1 [facility] CBC W/Diff, Automatedon 01-20 Absolute Lymph 1.83 X10 3/uL Normal 0.83-4.51 [facility] Comment on above: Performed By: #### L 501.0250, BTS, L3890.6006, L509.8002, L100.0100 ####[facility] [address] [place], [address] Absolute Neut 5.5 X10 3/uL Normal 2.0-7.7 [facility] Comment on above: Performed By: #### L 501.0250, BTS, L3890.6006, L509.8002, L100.0100 ####[facility] [address] [place], [address] Basophils/100 WBC (Bld) 0.3 % Normal 0-1 [facility] Comment on above: Performed By: #### L 501.0250, BTS, L3890.6006, L509.8002, L100.0100 ####[facility] [address] [place], [address] Eosinophils/100 WBC (Bld) 1.4 % Normal 0-5 [facility] Comment on above: Performed By: #### L 501.0250, BTS, L3890.6006, L509.8002, L100.0100 ####[facility] [address] [place], [address] Erythrocyte distribution width (RBC) [Ratio] 12.9 % Normal 11.6-14.6 [facility] Comment on above: Performed By: #### L 501.0250, BTS, L3890.6006, L509.8002, L100.0100 ####[facility] [address] [place], [address] Hematocrit (Bld) [Volume fraction] 33.6 % Low 37-47 [facility] Comment on above: Performed By: #### L 501.0250, BTS, L3890.6006, L509.8002, L100.0100 ####[facility] [address] [place], [address] Hemoglobin (Bld) [Mass/Vol] 11.5 g/dL Low 12.0-15.0 [facility] Comment on above: Performed By: #### L 501.0250, BTS, L3890.6006, L509.8002, L100.0100 ####[facility] [address] [place], [address] IG% 0.600 Normal 0.0-0.9 [facility] Comment on above: Result Comment: IG% - Immature Granulocytes (promyelocytes, myelocytes and metamyelocytes) > 1% indicates that a LEFT SHIFT is Present. Performed By: #### L 501.0250, BTS, L3890.6006, L509.8002, L100.0100 ####[facility] [address] [place], [address] Lymphocytes/100 WBC (Bld) 23.0 % Normal 19-41 [facility] Comment on above: Performed By: #### L 501.0250, BTS, L3890.6006, L509.8002, L100.0100 ####[facility] [address] [place], [address] MCH (RBC) [Entitic mass] 31.6 pg Normal 27.0-32.0 [facility] Comment on above: Performed By: #### L 501.0250, BTS, L3890.6006, L509.8002, L100.0100 ####[facility] [address] [place], [address] MCHC (RBC) [Mass/Vol] 34.2 g/dL Normal 32-36 [facility] Comment on above: Performed By: #### L 501.0250, BTS, L3890.6006, L509.8002, L100.0100 ####[facility] [address] [place], [address] MCV (RBC) [Entitic vol] 92.3 fL Normal 81-99 [facility] Comment on above: Performed By: #### L 501.0250, BTS, L3890.6006, L509.8002, L100.0100 ####[facility] [address] [place], [address] Monocytes/100 WBC (Bld) 5.2 % Normal 0-10 [facility] Comment on above: Performed By: #### L 501.0250, BTS, L3890.6006, L509.8002, L100.0100 ####[facility] [address] [place], [address] Neutrophils/100 WBC (Bld) 69.5 % Normal 47-70 [facility] Comment on above: Performed By: #### L 501.0250, BTS, L3890.6006, L509.8002, L100.0100 ####[facility] [address] [place], [address] Nucleated RBC (Bld) [#/Vol] 0 10*3/uL Normal 0-5 [facility] Comment on above: Performed By: #### L 501.0250, BTS, L3890.6006, L509.8002, L100.0100 ####[facility] [address] [place], [address] Platelet mean volume (Bld) [Entitic vol] 9.6 fL Normal 6.2-12.0 [facility] Comment on above: Performed By: #### L 501.0250, BTS, L3890.6006, L509.8002, L100.0100 ####[facility] [address] [place], [address] Platelets (Bld) [#/Vol] 160 10*3/uL Normal 150-450 [facility] Comment on above: Performed By: #### L 501.0250, BTS, L3890.6006, L509.8002, L100.0100 ####[facility] [address] [place], [address] RBC (Bld) [#/Vol] 3.64 10*6/uL Low 4.2-5.4 [facility] Comment on above: Performed By: #### L 501.0250, BTS, L3890.6006, L509.8002, L100.0100 ####[facility] [address] [place], [address] RDW SD 43.1 fl Normal 35.1-43.9 [facility] Comment on above: Performed By: #### L 501.0250, BTS, L3890.6006, L509.8002, L100.0100 ####[facility] [address] [place], [address] WBC (Bld) [#/Vol] 7.9 10*3/uL Normal 4.4-11.0 [facility] Comment on above: Performed By: #### L 501.0250, BTS, L3890.6006, L509.8002, L100.0100 ####[facility] [address] [place], [place], [address] Eosinophil percentageOrdered By: Elle Moy on 02-11-2025 Eosinophils/100 WBC (Bld) 1.4 % 0-5 [facility] Erythrocyte distribution wid th ratioOrdered By: Elle Moy on 02-11-2025 Erythrocyte distribution width (RBC) [Ratio] 12.9 % 11.6-14.6 [facility] Erythrocyte distribution wid th standard deviationOrdered By: Elle Moy on 02-11-2025 Erythrocyte distribution width (RBC) [Ratio] 43.1 fl 35.1-43.9 [facility] Glucose Challenge Gest 1H 50 ger 02-11-2025 GLU GEST 50g 1H 66 mg/dL Low 70-140 [facility] Comment on above: Performed By: #### L 501.0250, BTS, L3890.6006, L509.8002, L100.0100 ####[facility] [address] [place], [address] Glucose measurement at [facility] rs post-dose gestational glucose tolerance testOrdered By: Elle Winter on 02-11-2025 Glucose [Mass/Vol] 66 mg/dL Low 70-140 [facility] HIVon 02-11-2025 HIV Non-Reactive Normal Nonreactive [facility] Comment on above: Result Comment: Non- Reactive Reactive Repeatedly reactive samples must be confirmed according to CDC recommended confirmatory algorithms. The subresults for either HIVAG or AHIV can be used as an aid in the selection of the confirmation algorithm for reactive samples. Send out specimens with Reactive results to [facility] for confirmation. Order the HIV antibody detection and differentiation: lc#[id number] Performed By: #### L 501.0250, BTS, L3890.6006, L509.8002, L100.0100 ####[facility] [address] [place], [address] Hematocrit Auto (Bld) [Volum e fraction]Ordered By: Elle Winter on 02-11-2025 Hematocrit (Bld) [Volume fraction] 33.6 % Low 37-47 [facility] Hemoglobin measurementOrdere d By: Elle Winter on 02-11-2025 Hemoglobin (Bld) [Mass/Vol] 11.5 g/dL Low 12.0-15.0 [facility] Immature granulocytes/100 WB C Auto (Bld)Ordered By: Elle Winter on 02-11-2025 Immature granulocytes/100 WBC (Bld) 0.600 % 0.0-0.9 [facility] Comment on above: IG% - Immature Granu locytes (promyelocytes, myelocytes and metamyelocytes) > 1% indicates that a LEFT SHIFT is Present. Laboratory - Chemistry and C hemistry - challengeOrdered By: Isabelle Matias on 02-11-2025 Glucose Ql (U) Negative [facility] Laboratory - UrinalysisOrder ed By: Isabelle Matias on 02-11-2025 Protein Ql (U) Negative [facility] MCV (mean corpuscular volume ) determinationOrdered By: Elle Winter on 02-11-2025 MCV (RBC) [Entitic vol] 92.3 fL 81-99 [facility] Mean corpuscular hemoglobin (MCH) determinationOrdered By: Elle Winter on 02-11-2025 MCH (RBC) [Entitic mass] 31.6 pg 27.0-32.0 [facility] Mean corpuscular hemoglobin concentration (MCHC) determinationOrdered By: Elle Winter on 02-11-2025 MCHC (RBC) [Mass/Vol] 34.2 g/dL 32-36 [facility] Mean platelet volume determi nationOrdered By: Elle Winter on 02-11-2025 Platelet mean volume (Bld) [Entitic vol] 9.6 fL 6.2-12.0 [facility] Monocyte percentageOrdered B y: Elle Winter on 02-11-2025 Monocytes/100 WBC (Bld) 5.2 % 0-10 [facility] Neutrophil percentageOrdered By: Elle Winter on 02-11-2025 Neutrophils/100 WBC (Bld) 69.5 % 47-70 [facility] No Panel InformationOrdered By: Elle Winter on 02-11-2025 HIV (1&2) Antibody Non-Reactive Nonreactive [facility] Comment on above: Non-ReactiveReactive Repeatedly reactive samples must be confirmed according to CDC recommended confirmatory algorithms. The subresults for either HIVAG or AHIV can be used as an aid in the selection of the confirmation algorithm for reactive samples.Send out specimens with Reactive results to [facility] for confirmation.Order the HIV antibody detection and differentiation: #[id number] Nucleated red blood cell per centageOrdered By: Elle Winter on 02-11-2025 Nucleated RBC/100 WBC (Bld) [Ratio] 0 % 0-5 [facility] Humanities Professor Office Visit Reporton 02-11-2025 Humanities Professor Office Visit Report [facility] [address], [address] [place] [address] OFFICE VISIT Date of Service: 02/11/25 MR#: [id number] Acct: [id number] Name: RISA VELA Rep #: [id number] : 1995 Provider: ANTONIO dumont Age/Sex: 30/F Location: [facility] Status: Signed Intake Vital Signs 12/31/24 10:03 01/28/25 13:03 02/11/25 10:10 Height 5 ft 7 in 5 ft 7 in 5 ft 7 in Weight: 161 lb 4 oz BMI 25.2 BP 106/64 Intake Visit Reasons: 28wk ob/glucose rhogam Chief Complaint: 28 Week OB/Glucose 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 Is patient in pain?: No Allergies No Known Allergies Allergy (Verified 02/11/25 10:15) Medications ???Medication ???Instructions ???Recorded ???Confirmed ???Type PNV 153-FA 400 mcg-om3 35 mg-dha tab PO 09/22/24 02/11/25 History 25 mg-epa 5 mg-fish oil chew tablet ondansetron HCl 4 mg tablet 4 mg PO Q4H #60 tabs 12/02/2401/20 Rx Last Menstrual Period: 07/29/24 Zika: Zika virus screening: Negative : Yes PFSH PFSH Medical History Vaginal delivery Depression Surgical History H/O arthroscopic knee surgery Bat[place] teeth extracted Family History Grandfather Heart disease Paternal Cancer Paternal- skin cancer Social History adopted: No household members: spouse and children number of children: 2 current occupational status: employed 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 current occupational exposures/hazards: No pets and animals: Yes pets and animals: dog(s) history of recent travel: Yes ([place], [place], [place], , [place], [place]) out of state: Yes out of country: No Smoking Status: Never smoker alcohol intake: current alcohol intake frequency: holidays/special occasions only details: Not while substance use type: does not use well-balanced diet: daily or most days caffeine: No eating out: rarely or never during the past year weight has: remained stable what type of physical activity do you participate in: running and other details: crossfit frequency: 5-6 times per week duration: 45-60 minutes/day romie/adventist: Christianity seatbelt use: always do you feel safe at home: Yes additional social history: Ismael Rodriguez History 3 Elective abortions Hx Para 2 Spontaneous abortions Hx # Term Pregnancies Ectopic pregnancies Hx # Pregnancies Multiple births # of living children 2 Past Pregnancies Del. Date Name GA/Weeks Outcome Route Bth Weight Infant Gen Labor Lgth Anesthesia Del Locatn Provider FOB 09/16/19 Angelo 37 live - full term 7#2oz Male 16 hr epidural [facility] Dr. Nadiya Jimenez 08/09/21 Elijah 39 live - full term 7#12oz Male 3 Hrs none [facility] Dr. Dheeraj Jimenez Delivery Date: 09/16/19 Last Updated by: Maru Kingsley SROM HPI 28wk ob/glucose rhogam Details: RISA VELA is a 30 year old who presents for routine OB visit. OB Visit ROXANA Calculator Estimated Delivery Date Method Current WG Current Estimate 05/05/25 LMP (Certain) 28w 1d Other Estimates 05/07/25 Ultrasound #1 27w 6d Expected Delivery Route/Plan Labor Preferences- CB/BF classes: no labor support person: Tony labor intervention preferences: [] pain management options preferred: limited cut cord/dad catch: cord : yes PP control planned: discussed discussed possible routes of delivery and associated risks: [] special requests: [] Specific Issue/Plans Covid status: [] Flu vaccine: [] Tdap vaccine: given Rhogam: given 02/11/25 LARC form signed: yes Problem list reviewed and updated with the most current plan of care details and appropriate orders placed. Relevant counseling for the gestational age provided. Continue routine care and follow up unless otherwise noted in visit notes/problem list details Initial Weight: Not Recorded Date -???-???-???-???-?? ?-???-???-???-???-? ??-???-???- EGA Weight BP Urine Prot -???-???-???-???-?? ?-???-???-???-???-? ??-???-???- Glucose FHR FuHt Pres Dilation -???-???-???-???-?? ?-???-???-???-???-? ??-???-???- Effaced St Visit Note 10/02/24 -???-???-???-???-?? ?-???-???-???-???-? ??-???-???- 9w 2d 143 lb 97/62 -???-???-???-???-?? ?-???-???-???-???-? ??-???-???- 190 -???-???-???-???-?? ?-???-???-???-???-? ??-???-???- KW-CRL cons with dates. Declines NIPT 11/06/24 -???-???-???-???-?? ?-???-???-???-???-? ??-???-???- 14w 2d 145 lb 110/69 Negative -???-???-???-???-?? ?-???-???-???-???-? ??-???-???- Negative 143 -???-???-???-???-?? ?-???-???-???-???-? ??-???-? (more content not included)... Normal [facility] Platelet countOrdered By: Edgardo Winter on 02-11-2025 Platelets (Bld) [#/Vol] 160 10*3/uL 150-450 [facility] RBC Auto (Bld) [#/Vol]Ordere d By: Elle Winter on 02-11-2025 RBC (Bld) [#/Vol] 3.64 10*6/uL Low 4.2-5.4 [facility] Syphilis Antibodieson 2024 Syphilis Abs Non-Reactive Normal Nonreactive [facility] Comment on above: Performed By: #### L 501.0250, BTS, L3890.6006, L509.8002, L100.0100 ####[facility] [address] [place], [address] Type AND Screenon 02-11-2025 ABO and Rh group Nom (Bld) Blood group O Rh(D) negative Normal [facility] Comment on above: Order Comment: PN Performed By: #### L 501.0250, BTS, L3890.6006, L509.8002, L100.0100 ####[facility] [id number] [place], [address] White blood cell (WBC) count Ordered By: Elle Winter on 02-11-2025 WBC (Bld) [#/Vol] 7.9 10*3/uL 4.4-11.0 [facility] - Chemistry and C hemistry - challengeOrdered By: Elle Winter on 01-28-2025 Glucose Ql (U) Negative [facility] - UrinalysisOrder ed By: Elle Winter on 01-28-2025 Protein Ql (U) Negative [facility] Humanities Professor Office Visit Reporton 01-28-2025 Humanities Professor Office Visit Report [facility]'s [address], [address] [place] [address] OFFICE VISIT Date of Service: 01/28/25 MR#: [id number] Acct: [id number] Name: RISA VELA Rep #: [id number] : 1995 Provider: Dr. Elle Ayala DO Age/Sex: 30/F Location: [facility] Status: Signed Intake Vital Signs 12/31/24 10:03 01/28/25 13:02 01/28/25 13:03 Height 5 ft 7 in 5 ft 7 in 5 ft 7 in Weight: 158 lb 8 oz BMI 24.8 BP 105/67 Intake Visit Reasons: 26wk ob 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 Is patient in pain?: No Allergies No Known Allergies Allergy (Verified 01/28/25 13:02) Medications ???Medication ???Instructions ???Recorded ???Confirmed ???Type PNV 153-FA 400 mcg-om3 35 mg-dha tab PO 09/22/24 01/28/25 History 25 mg-epa 5 mg-fish oil chew tablet ondansetron HCl 4 mg tablet 4 mg PO Q4H #60 tabs 12/02/2401/19 Rx Last Menstrual Period: 07/29/24 Zika: Zika virus screening: Negative : No PFSH PFSH Medical History Vaginal delivery Depression Surgical History H/O arthroscopic knee surgery [place] teeth extracted Family History Grandfather Heart disease Paternal Cancer Paternal- skin cancer Social History adopted: No household members: spouse and children number of children: 2 current occupational status: employed 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 current occupational exposures/hazards: No pets and animals: Yes pets and animals: dog(s) history of recent travel: Yes ([place], [place], [place], [place], [place], [place]) out of state: Yes out of country: No Smoking Status: Never smoker alcohol intake: current alcohol intake frequency: holidays/special occasions only details: Not while substance use type: does not use well-balanced diet: daily or most days caffeine: No eating out: rarely or never during the past year weight has: remained stable what type of physical activity do you participate in: running and other details: crossfit frequency: 5-6 times per week duration: 45-60 minutes/day romie/adventist: Christianity seatbelt use: always do you feel safe at home: Yes additional social history: Ismael Rodriguez History 3 Elective abortions Hx Para 2 Spontaneous abortions Hx # Term Pregnancies Ectopic pregnancies Hx # Pregnancies Multiple births # of living children 2 Past Pregnancies Del. Date Name GA/Weeks Outcome Route Bth Weight Infant Gen Labor Lgth Anesthesia Del Locatn Provider FOB 09/16/19 Angelo 37 live - full term 7#2oz Male 16 hr epidural [facility] Dr. Nadiya Jimenez 08/09/21 Elijah 39 live - full term 7#12oz Male 3 Hrs none [facility] Dr. Dheeraj Jimenez Delivery Date: 09/16/19 Last Updated by: Maru Kingsley SROM HPI 26wk ob Details: RISA VELA is a 30 year old who presents for routine OB visit. OB Visit ROXANA Calculator Estimated Delivery Date Method Current WG Current Estimate 05/05/25 LMP (Certain) 26w 1d Other Estimates 05/07/25 Ultrasound #1 25w 6d Expected Delivery Route/Plan Labor Preferences- CB/BF classes: [] labor support person: [] labor intervention preferences: [] pain management options preferred: [] cut cord/dad catch: [] : [] PP control planned: [] discussed possible routes of delivery and associated risks: [] special requests: [] Specific Issue/Plans Covid status: [] Flu vaccine: [] Tdap vaccine: [] Rhogam: [] LARC form signed: [] Problem list reviewed and updated with the most current plan of care details and appropriate orders placed. Relevant counseling for the gestational age provided. Continue routine care and follow up unless otherwise noted in visit notes/problem list details Initial Weight: Not Recorded Date -???-???-???-???-?? ?-???-???-???-???-? ??-???-???- EGA Weight BP Urine Prot -???-???-???-???-?? ?-???-???-???-???-? ??-???-???- Glucose FHR FuHt Pres Dilation -???-???-???-???-?? ?-???-???-???-???-? ??-???-???- Effaced St Visit Note 10/02/24 -???-???-???-???-?? ?-???-???-???-???-? ??-???-???- 9w 2d 143 lb 97/62 -???-???-???-???-?? ?-???-???-???-???-? ??-???-???- 190 -???-???-???-???-?? ?-???-???-???-???-? ??-???-???- KW-CRL cons with dates. Declines NIPT 11/06/24 -???-???-???-???-?? ?-???-???-???-???-? ??-???-???- 14w 2d 145 lb 110/69 Negative -???-???-???-???-?? ?-???-???-???-???-? ??-???-???- Negative 143 -???-???-???-???-?? ?-???-???-???-???-? ??-???-???- LC- no vb/cr amping. declines afp. anatomy ordered. 12/02/24 -???-???-???-???-?? ?-? (more content not included)... Normal [facility] - Chemistry and C hemistry - challengeOrdered By: Elle Winter on 12-31-2024 Glucose Ql (U) Negative [facility] - UrinalysisOrder ed By: Elle Winter on 12-31-2024 Protein Ql (U) Negative [facility] Humanities Professor Office Visit Reporton 12-31-2024 Humanities Professor Office Visit Report [facility]'s [address], [address] [place] [address] OFFICE VISIT Date of Service: 12/31/24 MR#: [id number] Acct: [id number] Name: RISA VELA Rep #: [id number] : 1995 Provider: Dr. Elle Ayala DO Age/Sex: 29/F Location: [facility] Status: Signed Intake Vital Signs 11/06/24 09:55 12/02/24 14:58 12/31/24 10:02 12/31/24 10:03 Height 5 ft 7 in 5 ft 7 in 5 ft 7 in 5 ft 7 in Weight: 157 lb 4 oz BMI 24.6 BP 94/63 Intake Visit Reasons: 21wk ob 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 Is patient in pain?: No Allergies No Known Allergies Allergy (Verified 12/31/24 10:02) Medications ???Medication ???Instructions ???Recorded ???Confirmed ???Type PNV 153-FA 400 mcg-om3 35 mg-dha tab PO 09/22/24 12/31/24 History 25 mg-epa 5 mg-fish oil chew tablet ondansetron HCl 4 mg tablet 4 mg PO Q4H #60 tabs 12/02/2412/19 Rx Last Menstrual Period: 07/29/24 Zika: Zika virus screening: Negative : No PFSH PFSH Medical History Vaginal delivery Depression Surgical History H/O arthroscopic knee surgery [place] teeth extracted Family History Grandfather Heart disease Paternal Cancer Paternal- skin cancer Social History adopted: No household members: spouse and children number of children: 2 current occupational status: employed 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 current occupational exposures/hazards: No pets and animals: Yes pets and animals: dog(s) history of recent travel: Yes ([place], [place], [place], , [place], [place]) out of state: Yes out of country: No Smoking Status: Never smoker alcohol intake: current alcohol intake frequency: holidays/special occasions only details: Not while substance use type: does not use well-balanced diet: daily or most days caffeine: No eating out: rarely or never during the past year weight has: remained stable what type of physical activity do you participate in: running and other details: crossfit frequency: 5-6 times per week duration: 45-60 minutes/day romie/adventist: Christianity seatbelt use: always do you feel safe at home: Yes additional social history: Ismael Rodriguez History 3 Elective abortions Hx Para 2 Spontaneous abortions Hx # Term Pregnancies Ectopic pregnancies Hx # Pregnancies Multiple births # of living children 2 Past Pregnancies Del. Date Name GA/Weeks Outcome Route Bth Weight Gen Labor Lgth Anesthesia Del Locatn Provider FOB 09/16/19 Angelo 37 live - full term 7#2oz Male 16 hr epidural [facility] Dr. Nadiya Jimenez 08/09/21 Elijah 39 live - full term 7#12oz Male 3 Hrs none [facility] Dr. Dheeraj Jimenez Delivery Date: 09/16/19 Last Updated by: Maru Kingsley SROM HPI 21wk ob Details: RISA VELA is a 29 year old who presents for routine OB visit. OB Visit ROXANA Calculator Estimated Delivery Date Method Current WG Current Estimate 05/05/25 LMP (Certain) 22w 1d Other Estimates 05/07/25 Ultrasound #1 21w 6d Expected Delivery Route/Plan Labor Preferences- CB/BF classes: [] labor support person: [] labor intervention preferences: [] pain management options preferred: [] cut cord/dad catch: [] : [] PP control planned: [] discussed possible routes of delivery and associated risks: [] special requests: [] Specific Issue/Plans Covid status: [] Flu vaccine: [] Tdap vaccine: [] Rhogam: [] LARC form signed: [] Problem list reviewed and updated with the most current plan of care details and appropriate orders placed. Relevant counseling for the gestational age provided. Continue routine care and follow up unless otherwise noted in visit notes/problem list details Initial Weight: Not Recorded Date -???-???-???-???-?? ?-???-???-???-???-? ??-???-???- EGA Weight BP Urine Prot -???-???-???-???-?? ?-???-???-???-???-? ??-???-???- Glucose FHR FuHt Pres Dilation -???-???-???-???-?? ?-???-???-???-???-? ??-???-???- Effaced St Visit Note 10/02/24 -???-???-???-???-?? ?-???-???-???-???-? ??-???-???- 9w 2d 143 lb 97/62 -???-???-???-???-?? ?-???-???-???-???-? ??-???-???- 190 -???-???-???-???-?? ?-???-???-???-???-? ??-???-???- KW-CRL cons with dates. Declines NIPT 11/06/24 -???-???-???-???-?? ?-???-???-???-???-? ??-???-???- 14w 2d 145 lb 110/69 Negative -???-???-???-???-?? ?-???-???-???-???-? ??-???-???- Negative 143 -???-???-???-???-?? ?-???-???-???-???-? ??-???-???- LC- no vb/cr amping. declines afp. anatomy ordered. (more content not included)... Normal [facility] - Chemistry and C hemistry - challengeOrdered By: Pamela Beebe on 12-02-2024 Glucose Ql (U) Negative [facility] Laboratory - UrinalysisOrder ed By: Pamela Beebe on 12-02-2024 Protein Ql (U) Negative [facility] Humanities Professor Office Visit Reporton 12-02-2024 Humanities Professor Office Visit Report [facility]'[address], [facility] [address] [place] [address] OFFICE VISIT Date of Service: 12/02/24 MR#: [id number] Acct: [id number] Name: RISA VELA Rep #: [id number] : 1995 Provider: Dr. Pamela pulliam MD Age/Sex: 29/F Location: [facility] Status: Signed Intake Vital Signs 10/02/24 09:02 11/06/24 09:55 12/02/24 14:58 Height 5 ft 7 in 5 ft 7 in 5 ft 7 in Weight: 153 lb 4 oz BMI 24.0 BP 112/74 Intake Visit Reasons: 17 wk ob 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 Is patient in pain?: No Feel stressed/tense/nerv ous/anxious/difficu lty sleeping: not at all Allergies No Known Allergies Allergy (Verified 12/02/24 15:01) Medications ???Medication ???Instructions ???Recorded ???Confirmed ???Type PNV 153-FA 400 mcg-om3 35 mg-dha tab PO 09/22/24 12/02/24 History 25 mg-epa 5 mg-fish oil chew tablet ondansetron HCl 4 mg tablet 4 mg PO Q4H #60 tabs 12/02/2411/21 Rx Last Menstrual Period: 07/29/24 Zika: Zika virus screening: Negative : No Have you fallen in the past year?: No PFSH PFSH Medical History Vaginal delivery Depression Surgical History H/O arthroscopic knee surgery [place] teeth extracted Family History Grandfather Heart disease Paternal Cancer Paternal- skin cancer Social History adopted: No household members: spouse and children number of children: 2 current occupational status: employed 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 current occupational exposures/hazards: No pets and animals: Yes pets and animals: dog(s) history of recent travel: Yes ([place], [place], [place], , [place], [place]) out of state: Yes out of country: No Smoking Status: Never smoker alcohol intake: current alcohol intake frequency: holidays/special occasions only details: Not while substance use type: does not use well-balanced diet: daily or most days caffeine: No eating out: rarely or never during the past year weight has: remained stable what type of physical activity do you participate in: running and other details: crossfit frequency: 5-6 times per week duration: 45-60 minutes/day romie/adventist: Christianity seatbelt use: always do you feel safe at home: Yes additional social history: Ismael Rodriguez History 3 Elective abortions Hx Para 2 Spontaneous abortions Hx # Term Pregnancies Ectopic pregnancies Hx # Pregnancies Multiple births # of living children 2 Past Pregnancies Del. Date Name GA/Weeks Outcome Route Bth Weight Infant Gen Labor Lgth Anesthesia Del Locatn Provider FOB 09/16/19 Angelo 37 live - full term 7#2oz Male 16 hr epidural [facility] Dr. Nadiya Jimenez 08/09/21 Elijah 39 live - full term 7#12oz Male 3 Hrs none [facility] Dr. Dheeraj Jimenez Delivery Date: 09/16/19 Last Updated by: Maru Kingsley SROM HPI 17 wk ob Details: RISA VELA is a 29 year old who presents for routine OB visit. OB Visit ROXANA Calculator Estimated Delivery Date Method Current WG Current Estimate 05/05/25 LMP (Certain) 18w 0d Other Estimates 05/07/25 Ultrasound #1 17w 5d Expected Delivery Route/Plan Labor Preferences- CB/BF classes: [] labor support person: [] labor intervention preferences: [] pain management options preferred: [] cut cord/dad catch: [] : [] PP control planned: [] discussed possible routes of delivery and associated risks: [] special requests: [] Specific Issue/Plans Covid status: [] Flu vaccine: [] Tdap vaccine: [] Rhogam: [] LARC form signed: [] Problem list reviewed and updated with the most current plan of care details and appropriate orders placed. Relevant counseling for the gestational age provided. Continue routine care and follow up unless otherwise noted in visit notes/problem list details Initial Weight: Not Recorded Date -???-???-???-???-?? ?-???-???-???-???-? ??-???-???- EGA Weight BP Urine Prot -???-???-???-???-?? ?-???-???-???-???-? ??-???-???- Glucose FHR FuHt Pres Dilation -???-???-???-???-?? ?-???-???-???-???-? ??-???-???- Effaced St Visit Note 10/02/24 -???-???-???-???-?? ?-???-???-???-???-? ??-???-???- 9w 2d 143 lb 97/62 -???-???-???-???-?? ?-???-???-???-???-? ??-???-???- 190 -???-???-???-???-?? ?-???-???-???-???-? ??-???-???- KW-CRL cons with dates. Declines NIPT 11/06/24 -???-???-???-???-?? ?-???-???-???-???-? ??-???-???- 14w 2d 145 lb 110/69 Negative -???-???-???-???-?? ?-???-???-???-???-? ??-???-???- Negative 143 -???-???-???-???-?? ?-???-???-???-???-? ??- (more content not included)... Normal [facility] Humanities Professor Office Visit Reporton 11-06-2024 Humanities Professor Office Visit Report [facility]'s [address], [facility] [address] [place] [address] OFFICE VISIT Date of Service: 11/06/24 MR#: [id number] Acct: [id number] Name: RISA VELA Rep #: [id number] : 1995 Provider: HARJEET matos Age/Sex: 29/F Location: [facility] Status: Signed Intake Vital Signs 08/09/21 21:02 10/02/24 09:02 11/06/24 09:55 Height 5 ft 7 in 5 ft 7 in 5 ft 7 in Weight: 145 lb BMI 22.7 BP 110/69 Intake Visit Reasons: 13wk OB 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 Is patient in pain?: No Allergies No Known Allergies Allergy (Verified 11/06/24 09:57) Medications ???Medication ???Instructions ???Recorded ???Confirmed ???Type PNV 153-FA 400 mcg-om3 35 mg-dha tab PO 09/22/24 11/06/24 History 25 mg-epa 5 mg-fish oil chew tablet Last Menstrual Period: 07/29/24 Zika: Zika virus screening: Negative : Yes Have you fallen in the past year?: No PFSH PFSH Medical History Vaginal delivery Depression Surgical History H/O arthroscopic knee surgery Bat[place] teeth extracted Family History Grandfather Heart disease Paternal Cancer Paternal- skin cancer Social History adopted: No household members: spouse and children number of children: 2 current occupational status: employed 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 current occupational exposures/hazards: No pets and animals: Yes pets and animals: dog(s) history of recent travel: Yes ([place], [place], [place], , [place], [place]) out of state: Yes out of country: No Smoking Status: Never smoker alcohol intake: current alcohol intake frequency: holidays/special occasions only details: Not while substance use type: does not use well-balanced diet: daily or most days caffeine: No eating out: rarely or never during the past year weight has: remained stable what type of physical activity do you participate in: running and other details: crossfit frequency: 5-6 times per week duration: 45-60 minutes/day romie/adventist: Christianity seatbelt use: always do you feel safe at home: Yes additional social history: Ismael Rodriguez History 3 Elective abortions Hx Para 2 Spontaneous abortions Hx # Term Pregnancies Ectopic pregnancies Hx # Pregnancies Multiple births # of living children 2 Past Pregnancies Del. Date Name GA/Weeks Outcome Route Bth Weight Infant Gen Labor Lgth Anesthesia Del Locatn Provider FOB 09/16/19 Angelo 37 live - full term 7#2oz Male 16 hr epidural [facility] Dr. Nadiya Jimenez 08/09/21 Elijah 39 live - full term 7#12oz Male 3 Hrs none [facility] Dr. Dheeraj Jimenez Delivery Date: 09/16/19 Last Updated by: Maru Kingsley SROM HPI 13wk OB Details: RISA VELA is a 29 year old who presents for routine OB visit. OB Visit ROXANA Calculator Estimated Delivery Date Method Current WG Current Estimate 05/05/25 LMP (Certain) 14w 2d Other Estimates 05/07/25 Ultrasound #1 14w 0d Expected Delivery Route/Plan Labor Preferences- CB/BF classes: [] labor support person: [] labor intervention preferences: [] pain management options preferred: [] cut cord/dad catch: [] : [] PP control planned: [] discussed possible routes of delivery and associated risks: [] special requests: [] Specific Issue/Plans Covid status: [] Flu vaccine: [] Tdap vaccine: [] Rhogam: [] LARC form signed: [] Problem list reviewed and updated with the most current plan of care details and appropriate orders placed. Relevant counseling for the gestational age provided. Continue routine care and follow up unless otherwise noted in visit notes/problem list details Initial Weight: Not Recorded Date -???-???-???-???-?? ?-???-???-???-???-? ??-???-???- EGA Weight BP Urine Prot -???-???-???-???-?? ?-???-???-???-???-? ??-???-???- Glucose FHR FuHt Pres Dilation -???-???-???-???-?? ?-???-???-???-???-? ??-???-???- Effaced St Visit Note 10/02/24 -???-???-???-???-?? ?-???-???-???-???-? ??-???-???- 9w 2d 143 lb 97/62 -???-???-???-???-?? ?-???-???-???-???-? ??-???-???- 190 -???-???-???-???-?? ?-???-???-???-???-? ??-???-???- KW-CRL cons with dates. Declines NIPT 11/06/24 -???-???-???-???-?? ?-???-???-???-???-? ??-???-???- 14w 2d 145 lb 110/69 Negative -???-???-???-???-?? ?-???-???-???-???-? ??-???-???- Negative 143 -???-???-???-???-?? ?-???-???-???-???-? ??-???-???- LC- no vb/cr amping. declines afp. anatomy ordered. ACOG First Trimester First Trimester: Desire for , Alcohol, Tobacco Cessation, Ill (more content not included)... Normal [facility] Chlamydia/GC ARIAS aptimaon CHLAMY,NUC ACID Negative Normal Negative [facility] Comment on above: Performed By: #### L 0.1800, M100.0 #### [facility] [address] [place], [place], [id number] GC BY NUC ACID Negative Normal Negative [facility] Comment on above: Result Comment: Perf ormed at: =G - [facility] [address] [place] [id number] Dictaphone Transcriber: Ashlyn Lopez MD, Phone: [phone] Performed By: #### L 0.1800, M100.2200 #### [facility] [address] [place], [address] HIV - WCHon 10-05-2024 HIV Non-Reactive Normal Nonreactive [facility] Comment on above: Order Comment: Reaso n for Exam: Performed By: #### L 100.0100, L3890.6100, L3890.6005, L509.4005, L509.8000, L3890.6300, BTS ####[facility] [address] [place], [place], [id number] Hepatitis B Surface Antigeno n 10-05-2024 HEP B Surf Ag Non-Reactive Normal Nonreactive [facility] Comment on above: Order Comment: Reaso n for Exam: Performed By: #### L 100.0100, L3890.6100, L3890.6005, L509.4005, L509.8000, L3890.6300, BTS ####[facility] [address] [place], [address] Hepatitis C Antibodyon 10-05 Hepatitis C AB Non-Reactive Normal Nonreactive [facility] Comment on above: Order Comment: Reaso n for Exam: Result Comment: Non Reactive: < 0.8 Equivocal: >/= 0.8 to < 1.0 Reactive: >/= 1.0 The CDC requires that a reactive/equivocal HCV antibody result be sent out for confirmation. HCV Quant by PCR testing. Performed By: #### L 100.0100, L3890.6100, L3890.6005, L509.4005, L509.8000, L3890.6300, BTS ####[facility] [address] [place], [place], [phone]- L509.8000on 10-05-2024 Syphilis Abs Non-Reactive Normal [facility] Comment on above: Order Comment: Reaso n for Exam: Performed By: #### L 100.0100, L3890.6100, L3890.6005, L509.4005, L509.8000, L3890.6300, BTS ####[facility] [address] [place], [address] Rubella IgGon 10-05-2024 Rubella IgG Reactive Normal Nonreactive [facility] Comment on above: Order Comment: Reaso n for Exam: Result Comment: Anti body Results Interpretation of Immune Status Non Reactive Presumed Non-Immune Equivocal Equivocal Reactive Presumed Immune Performed By: #### L 100.0100, L3890.6100, L3890.6005, L509.4005, L509.8000, L3890.6300, BTS ####[facility] [address] [place], [address] Urine Cultureon 10-03-2024 URC Culture exhibits no growth. Normal [facility] Comment on above: Performed By: #### L 7000.1800, M100.2200 #### [facility] [address] [place], [address] CBC W/Diff, Automatedon 09-20 Absolute Lymph 2.23 X10 3/uL Normal 0.83-4.51 [facility] Comment on above: Performed By: #### L 100.0100, L3890.6100, L3890.6005, L509.4005, L509.8000, L3890.6300, BTS ####[facility] [address] [place], [address] Absolute Neut 4.7 X10 3/uL Normal 2.0-7.7 [facility] Comment on above: Performed By: #### L 100.0100, L3890.6100, L3890.6005, L509.4005, L509.8000, L3890.6300, BTS ####[facility] [address] [place], [address] Basophils/100 WBC (Bld) 0.3 % Normal 0-1 [facility] Comment on above: Performed By: #### L 100.0100, L3890.6100, L3890.6005, L509.4005, L509.8000, L3890.6300, BTS ####[facility] [address] [place], [address] Eosinophils/100 WBC (Bld) 1.1 % Normal 0-5 [facility] Comment on above: Performed By: #### L 100.0100, L3890.6100, L3890.6005, L509.4005, L509.8000, L3890.6300, BTS ####[facility] [address] [place], [address] Erythrocyte distribution width (RBC) [Ratio] 12.5 % Normal 11.6-14.6 [facility] Comment on above: Performed By: #### L 100.0100, L3890.6100, L3890.6005, L509.4005, L509.8000, L3890.6300, BTS ####[facility] [address] [place], [address] Hematocrit (Bld) [Volume fraction] 39.8 % Normal 37-47 [facility] Comment on above: Performed By: #### L 100.0100, L3890.6100, L3890.6005, L509.4005, L509.8000, L3890.6300, BTS ####[facility] [address] [place], [address] Hemoglobin (Bld) [Mass/Vol] 14.0 g/dL Normal 12.0-15.0 [facility] Comment on above: Performed By: #### L 100.0100, L3890.6100, L3890.6005, L509.4005, L509.8000, L3890.6300, BTS ####[facility] [address] [place], [address] IG% 0.500 Normal 0.0-0.9 [facility] Comment on above: Result Comment: IG% - Immature Granulocytes (promyelocytes, myelocytes and metamyelocytes) > 1% indicates that a LEFT SHIFT is Present. Performed By: #### L 100.0100, L3890.6100, L3890.6005, L509.4005, L509.8000, L3890.6300, BTS ####[facility] [address] [place], [address] Lymphocytes/100 WBC (Bld) 29.8 % Normal 19-41 [facility] Comment on above: Performed By: #### L 100.0100, L3890.6100, L3890.6005, L509.4005, L509.8000, L3890.6300, BTS ####[facility] [address] [place], [address] MCH (RBC) [Entitic mass] 31.0 pg Normal 27.0-32.0 [facility] Comment on above: Performed By: #### L 100.0100, L3890.6100, L3890.6005, L509.4005, L509.8000, L3890.6300, BTS ####[facility] [address] [place], [address] MCHC (RBC) [Mass/Vol] 35.2 g/dL Normal 32-36 [facility] Comment on above: Performed By: #### L 100.0100, L3890.6100, L3890.6005, L509.4005, L509.8000, L3890.6300, BTS ####[facility] [address] [place], [address] MCV (RBC) [Entitic vol] 88.2 fL Normal 81-99 [facility] Comment on above: Performed By: #### L 100.0100, L3890.6100, L3890.6005, L509.4005, L509.8000, L3890.6300, BTS ####[facility] [address] [place], [address] Monocytes/100 WBC (Bld) 5.9 % Normal 0-10 [facility] Comment on above: Performed By: #### L 100.0100, L3890.6100, L3890.6005, L509.4005, L509.8000, L3890.6300, BTS ####[facility] [address] [place], [address] Neutrophils/100 WBC (Bld) 62.4 % Normal 47-70 [facility] Comment on above: Performed By: #### L 100.0100, L3890.6100, L3890.6005, L509.4005, L509.8000, L3890.6300, BTS ####[facility] [address] [place], [address] Nucleated RBC (Bld) [#/Vol] 0 10*3/uL Normal 0-5 [facility] Comment on above: Performed By: #### L 100.0100, L3890.6100, L3890.6005, L509.4005, L509.8000, L3890.6300, BTS ####[facility] [address] [place], [address] Platelet mean volume (Bld) [Entitic vol] 9.4 fL Normal 6.2-12.0 [facility] Comment on above: Performed By: #### L 100.0100, L3890.6100, L3890.6005, L509.4005, L509.8000, L3890.6300, BTS ####[facility] [address] [place], [address] Platelets (Bld) [#/Vol] 234 10*3/uL Normal 150-450 [facility] Comment on above: Performed By: #### L 100.0100, L3890.6100, L3890.6005, L509.4005, L509.8000, L3890.6300, BTS ####[facility] [address] [place], [address] RBC (Bld) [#/Vol] 4.51 10*6/uL Normal 4.2-5.4 [facility] Comment on above: Performed By: #### L 100.0100, L3890.6100, L3890.6005, L509.4005, L509.8000, L3890.6300, BTS ####[facility] [address] [place], [address] RDW SD 40.6 fl Normal 35.1-43.9 [facility] Comment on above: Performed By: #### L 100.0100, L3890.6100, L3890.6005, L509.4005, L509.8000, L3890.6300, BTS ####[facility] [address] [place], [address] WBC (Bld) [#/Vol] 7.5 10*3/uL Normal 4.4-11.0 [facility] Comment on above: Performed By: #### L 100.0100, L3890.6100, L3890.6005, L509.4005, L509.8000, L3890.6300, BTS ####[facility] [address] [place], [address] Humanities Professor Office Visit Reporton 10-02-2024 Humanities Professor Office Visit Report [facility] [address], [address] [place] [address] OFFICE VISIT Date of Service: 10/02/24 MR#: [id number] Acct: [id number] Name: RISA VELA Rep #: [id number] : 1995 Provider: HARJEET Serrano ams Age/Sex: 29/F Location: [facility] Status: Signed Intake Vital Signs 08/09/21 21:02 10/02/24 09:00 10/02/24 09:02 Height 5 ft 7 in 5 ft 7 in 5 ft 7 in Weight: 143 lb BMI 22.4 BP 97/62 Intake Visit Reasons: NOB LMP 07/29 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 Is patient in pain?: No Allergies No Known Allergies Allergy (Verified 10/02/24 09:01) Medications ???Medication ???Instructions ???Recorded ???Confirmed ???Type PNV 153-FA 400 mcg-om3 35 mg-dha tab PO 09/22/24 09/22/24 History 25 mg-epa 5 mg-fish oil chew tablet Last Menstrual Period: 07/29/24 Zika: Zika virus screening: Negative : Yes Have you fallen in the past year?: No PFSH PFSH Medical History Vaginal delivery Depression Surgical History H/O arthroscopic knee surgery Batson teeth extracted Family History Grandfather Heart disease Paternal Cancer Paternal- skin cancer Social History adopted: No household members: spouse and children number of children: 2 service: No current occupational status: employed 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 current occupational exposures/hazards: No pets and animals: Yes pets and animals: dog(s) history of recent travel: Yes ([place], [place], [place], , [place], [place]) out of state: Yes out of country: No Smoking Status: Never smoker alcohol intake: current alcohol intake frequency: holidays/special occasions only details: Not while substance use type: does not use well-balanced diet: daily or most days caffeine: No eating out: rarely or never during the past year weight has: remained stable what type of physical activity do you participate in: running and other details: crossfit frequency: 5-6 times per week duration: 45-60 minutes/day romie/adventist: Christianity seatbelt use: always do you feel safe at home: Yes additional social history: Ismael Rodriguez History 3 Elective abortions Hx Para 2 Spontaneous abortions Hx # Term Pregnancies Ectopic pregnancies Hx # Pregnancies Multiple births # of living children 2 Past Pregnancies Del. Date Name GA/Weeks Outcome Route Bth Weight Gen Labor Lgth Anesthesia Del Locatn Provider FOB 09/16/19 Angelo 37 live - full term 7#2oz Male 16 hr epidural [facility] Dr. Nadiya Jimenez 08/09/21 Elijah 39 live - full term 7#12oz Male 3 Hrs none [facility] Dr. Dheeraj Jimenez Delivery Date: 09/16/19 Last Updated by: Maru Kingsley SROM HPI NOB LMP 07/29 Details: RISA VELA is a 29 year old who presents for New OB visit. OB Visit ROXANA Calculator Estimated Delivery Date Method Current WG Current Estimate 05/05/25 LMP (Certain) 9w 2d Other Estimates 05/07/25 Ultrasound #1 9w 0d Comments: HIV: Urine Culture: Sequential Screen: NIPT Screen: Estimated Due Date: 05/05/25 Expected Delivery Route/Plan Labor Preferences- CB/BF classes: [] labor support person: [] labor intervention preferences: [] pain management options preferred: [] cut cord/dad catch: [] : [] PP control planned: [] discussed possible routes of delivery and associated risks: [] special requests: [] Specific Issue/Plans Covid status: [] Flu vaccine: [] Tdap vaccine: [] Rhogam: [] LARC form signed: [] Problem list reviewed and updated with the most current plan of care details and appropriate orders placed. Relevant counseling for the gestational age provided. Continue routine care and follow up unless otherwise noted in visit notes/problem list details Initial Weight: Not Recorded Date -???-???-???-???-?? ?-???-???-???-???-? ??-???-???- EGA Weight BP Urine Prot -???-???-???-???-?? ?-???-???-???-???-? ??-???-???- Glucose FHR FuHt Pres Dilation -???-???-???-???-?? ?-???-???-???-???-? ??-???-???- Effaced St Visit Note 10/02/24 -???-???-???-???-?? ?-???-???-???-???-? ??-???-???- 9w 2d 143 lb 97/62 -???-???-???-???-?? ?-???-???-???-???-? ??-???-???- 190 -???-???-???-???-?? ?-???-???-???-???-? ??-???-???- KW-CRL cons with dates. Declines NIPT Menstrual History Last Menstrual Period: 07/29/24 Reported LMP: definite Normal amount/duration: Yes Frequency in days: 28 On hormonal BC at conception: No hCG+: 08/31/24 Antepartum Record Geneti (more content not included)... Normal [facility] Type AND Screenon 10-02-2024 ABO and Rh group Nom (Bld) Blood group O Rh(D) negative Normal [facility] Comment on above: Order Comment: PN Performed By: #### L 100.0100, L3890.6100, L3890.6005, L509.4005, L509.8000, L3890.6300, BTS ####[facility] [address] [place], [address] CNOVon 04-15-2024 CNOV Office Visit (OBGYWLeann) ---- RISA VELA ([id number]) 1995 F Date Time Provider Department 04/15/24 2:45 PM ANNELISE GARLAND During your visit today, we recorded the following information about you: Blood pressure Weight 106/70 65.1 kg Annelise Garland APRN.CNM 04/15/2024 3:17 PM Signed Swedger offered: Patient declines. Risa presents for removal of IUD due to acne and long periods of spotting. She and are talking about a future UNIVERSAL PROTOCOL / SAFETY CHECKLIST Procedure to be Performed: IUD Removal Sign In: A Moment of CARE was completed. Personnel directly involved with the procedure wore the appropriate PPE (Personal Protective Equipment). Patient/Surrogate Stated/Verified: PATIENT VERIFIED(optional for EMERGENT procedures): Patient name, Date of , Relevant allergies, and The intended procedure Time Out Communication: Intended patient and procedure match the source documents. Consent documented and matches the intended procedure. Sign Out: SIGN OUT (optional for EMERGENT procedures): No specimen collected. PROCEDURE: Speculum placed in vagina, IUD string visualized and grasped with ring forceps. ASSESSMENT/PLAN: IUD removed without difficulty, intact, and patient tolerated procedure well. Contraception plans: oral contraceptives Reviewed pre-conception guidelines including folic acid supplementation, optimal timing of intercourse, avoidance of smoking, alcohol, exposure to environmental chemicals and need for evaluation if not within 12 months. Annelise Garland APRN.CNM Referring Provider: ANNELISE GARLAND [[id number]] Allergies As of Date: 04/15/2024 (No Known Allergies) Date Reviewed: 04/15/2024 Reviewed by: Francoise Whyte MA - Fully Assessed Reason for Visit: IUD Removal [1950] Primary Visit Diagnosis:Encounter for IUD removal [Z30.432] Other Visit Diagnoses:Other acne [L70.8] Breakthrough bleeding associated with intrauterine device (IUD) [N92.1, Z97.5] Order(s):Norethindr one Acet-Ethinyl Est (LOESTRIN 11/09, 21,) 1-20 mg-mcg per tabletTake 1 tablet by mouth once daily.Disp: 63 tabletRfl: 4 Prescriptions as of 04/15/2024 - Norethindrone Acet-Ethinyl Est (LOESTRIN 11/09, 21,) 1-20 mg-mcg per tablet Take 1 tablet by mouth once daily. Problem List As Of Date: 04/15/2024 (None) Prescriptions ordered this encounter Disp Refills Start End NORETHINDRONE ACETATE 1 MG-ETHINYL E* 63 t* 4 04/15/2024 Route: ORAL Sig: Take 1 tablet by mouth once daily. Disposition: Return if symptoms worsen or fail to improve. Follow-up and Disposition History for Encounter Date Provider Department Center 04/15/2024 [id number]-JCXHTSANNELISE GARLAND Kayleen Brown Encounter Status:Closed by ANNELISE GARLAND on 04/15/24 Normal [facility] CNOVon 03-26-2024 CNOV Office Visit (OBGYWM) ---- RISA VELA ([id number]) 1995 F Date Time Provider Department 03/26/24 10:00 AM ANNELISE GARLAND During your visit today, we recorded the following information about you: Blood pressure Weight Height Last Period 65.8 kg 1.694 m 03/12/24 Annelise Garland APRN.CN 03/26/2024 12:52 PM Signed Swedger offered: Patient declines. Risa is a 29 year old No obstetric history on file. who presents for an annual gynecologic exam with complaints, irregular bleeding and facial acne . She would like IUD removed. She is a transfer patient from [facility] and would like to establish care. Menses: cycles every 28-30 days and 9 days of flow. 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 No bloating, early satiety, indigestion, or increased flatulence. Bladder: No dysuria, gross hematuria, urinary frequency, urinary urgency, or incontinence. Breast: No breast lumps, nipple d/c, overlying skin changes, redness or skin retraction. Allergies and current medication updated:Yes EXAM: BP 92/66 Ht 5' 6.693 (1.69m) Wt 145 lb (65.8kg) LMP 03/12/2024 BMI 22.92 kg/(m2). GENERAL: pleasant, female in no apparent distress HEENT: Normocephalic and atraumatic NECK: Supple and full range of motion DERMATOLOGY: Normal and without lesions BREAST: deferred CHEST: Normal inspiratory effort ABDOMEN: soft, non-tender, and no masses PELVIC: external genitalia normal, normal Bartholin's glands, urethra, Coalmont's glands, no vulvar lesions, no cervical lesions, good vaginal support, physiologic discharge present, normal appearing perineal body and perianal region, IUD strings visible BIMANUAL: uterus normal size, shape and consistency, no adnexal masses, non-tender, and no cervical motion tenderness RECTOVAGINAL: deferred. NEURO: alert and oriented x3,exam grossly non-focal EXTREMITIES: normal ASSESSMENT/PLAN: 1) Health maintenance: Pap/HPV up to date. 2) Contraception: IUD. Desires removal of IUD- planning on using condoms/ possibly attempting Start taking vitamins 3) STD screening: Declined STD check. 4) Follow up for removal of IUD LITZY Bo APRN.CNM Allergies As of Date: 03/26/2024 (No Known Allergies) Date Reviewed: 03/26/2024 Reviewed by: Velvet Hansen MA - Fully Assessed Reason for Visit: Well Woman [[id number]] New Patient [172] Primary Visit Diagnosis:Encounter for gynecological examination (general) (routine) without abnormal findings [Z01.419] Other Visit Diagnosis:Encounter for IUD removal [Z30.432] Order(s):REMOVE INTRAUTERINE DEVICE [[id number]] Order #: [id number] Problem List As Of Date: 03/26/2024 (None) Disposition: Return in about 1 week (around 04/02/2024) for IUD removal. Follow-up and Disposition History for Encounter Date Provider Department Center 03/26/2024 [id number]-RIACYBANNELISE GARLAND [facility] Kayleen [facility] Encounter Status:Closed by ANNELISE GARLAND on 03/26/24 Normal [facility] CORONAVIRUS PCR - [facility] 01-12-2021 COVID-19 Negative Normal NORMAL: NEGATIVE [facility] Comment on above: Performed By: #### [id number] #### [facility],[address] [place] [address] SEND TO ? YES Normal [facility] Comment on above: Result Comment: RESU LTS FAXED TO INFECTION CONTROL. SARS-CoV-2 THIS TEST IS BEING USED UNDER THE FDA EUA PROCEDURE. THIS ASSAY HAS BEEN VALIDATED IN THE [facility] FOR USE WITH NASOPHARYNGEAL SPECIMENS IN [facility]. INTERPRETIVE DATA LABORATORY TEST RESULTS SHOULD ALWAYS BE CONSIDERED IN THE CONTEXT OF CLINICAL OBSERVATIONS AND EPIDEMIOLOGICAL DATA IN MAKING FINAL DIAGNOSIS AND PATIENT MANAGEMENT DECISIONS. PATIENT MANAGEMENT SHOULD FOLLOW CURRENT CDC GUIDELINES. A POSITIVE TEST RESULT FOR COVID-19 INDICATES THAT RNA FROM SARS-CoV-2 WAS DETECTED, AND THE PATIENT IS INFECTED WITH THE VIRUS AND PRESUMED TO BE CONTAGIOUS. A NEGATIVE TEST RESULT FOR THIS TEST MEANS THAT SARS-CoV-2 RNA WAS NOT PRESENT IN THE SPECIMEN ABOVE THE LIMIT OF DETECTION. HOWEVER, A NEGATVIE RESULT DOES NOT RULE OUT COVID-19 AND SHOULD NOT BE USED THE SOLE BASIS FOR TREATMENT OR PATIENT MANAGEMENT DECISIONS. A NEGATIVE RESULT DOES NOT EXCLUDE THE POSSIBILITY OF COVID-19. WHEN DIAGNOSTIC TESTING IS NEGATIVE, THE POSSIBLILTY OF A FALSE NEGATIVE RESULT SHOULD BE CONSIDERED IN THE CONTEXT OF A PATIENT'S RECENT EXPOSURES AND THE PRESENCE OF CLINICAL SIGNS AND SYMPTOMS CONSISTENT WITH COVID-19. THE POSSIBILITY OF A FALSE NEGATIVE RESULT SHOULD ESPECIALLY BE CONSIDERED IF THE PATIENT'S RECENT EXPOSURES OR CLINICAL PRESENTATION INDICATE THAT COVID-19 IS LIKELY, AND DIAGNOSTIC TESTS FOR OTHER CAUSES OF ILLNESS (e.g., OTHER RESPIRATORY ILLNESS) ARE NEGATIVE. IF COVID-19 IS STILL SUSPECTED BASED ON EXPOSURE HISTORY TOGETHER WITH OTHER CLINICAL FINDINGS, RE-TESTED SHOULD BE CONSIDERED BY HEALTHCARE PROVIDERS IN CONSULTATION WITH PUBLIC HEALTH AUTHORITIES. Performed By: #### 2 [id number] #### [facility],[address] [facility] [address] Vital Signs Date Time Vital Sign Value Performing Clinician Samuel chaudhari 05-10-2025 08:08-0400 Body height 170.[address] Griselda Alvarado MD Work Phone: 6(027)289-967651 [place] [address] 05-10-2025 08:06-0400 Body mass index (BMI) [Ratio] 25.7 kg/m2 Dr. Griselda Alvarado MD Work Phone: 2(743)150-788251 [place] [address] 05-10-2025 08:06-0400 Body weight 74.[address] Griselda Alvarado MD Work Phone: 0(634)218-572051 [place] [address] 05-10-2025 08:06-0400 Diastolic blood pressure 79 mm[Hg] Dr. Griselda Alvarado MD Work Phone: 8(254)995-047751 [place] [address] 05-10-2025 08:06-0400 Systolic blood pressure 123 mm[Hg] Dr. Griselda Alvarado MD Work Phone: 2(638)346-419651 [place] [address] 05-05-2025 09:58-0400 Body height 170.[address] Griselda Alvarado MD Work Phone: 8(210)452-134451 [place] [address] 05-05-2025 09:58-0400 Body mass index (BMI) [Ratio] 25.5 kg/m2 Dr. Griselda Alvarado MD Work Phone: 1(677)221-204451 [place] [address] 05-05-2025 09:58-0400 Body weight 73.[address] Griselda Alvarado MD Work Phone: 4(477)584-822751 [place] [address] 05-05-2025 09:58-0400 Diastolic blood pressure 71 mm[Hg] Dr. Griselda Alvarado MD Work Phone: 1(581)892-282251 [place] [address] 05-05-2025 09:58-0400 Systolic blood pressure 103 mm[Hg] Dr. Griselda Alvarado MD Work Phone: 7(809)639-466951 [place] [address] 04-28-2025 12:24-0400 Body temperature 97.8 [degF] Dr. Griselda Alvarado MD Work Phone: 5(495)322-121751 [place] [address] 04-28-2025 12:24-0400 Diastolic blood pressure 69 mm[Hg] Dr. Griselda Alvarado MD Work Phone: 2(995)888-240851 [place] [address] 04-28-2025 12:24-0400 Heart rate 64 /min Dr. Griselda Alvarado MD Work Phone: 3(676)124-436451 [place] [address] 04-28-2025 12:24-0400 Respiratory rate 16 /min Dr. Griselda Alvarado MD Work Phone: 9(861)670-104851 [place] [address] 04-28-2025 12:24-0400 Systolic blood pressure 112 mm[Hg] Dr. Griselda Alvarado MD Work Phone: 0(261)193-707951 [place] [address] 04-28-2025 12:23-0400 SaO2% (BldA) [Mass fraction] 96 % Dr. Griselda Alvarado MD Work Phone: 5(202)843-293651 [place] [address] 04-28-2025 12:14-0400 Body height 170.[address] Griselda Alvarado MD Work Phone: 5(263)425-744951 [place] [address] 04-28-2025 12:14-0400 Body mass index (BMI) [Ratio] 25 kg/m2 Dr. Griselda Alvarado MD Work Phone: 4(640)195-641251 [place] [address] 04-28-2025 12:14-0400 Body weight 72.[address] Griselda Alvarado MD Work Phone: 3(665)867-886051 [place] [address] 04-28-2025 11:00-0400 Body height 170.[address] Griselda Alvarado MD Work Phone: 9(030)585-859951 [place] [address] 04-28-2025 11:00-0400 Body mass index (BMI) [Ratio] 25.2 kg/m2 Dr. Griselda Alvarado MD Work Phone: 7(219)428-891451 [place] [address] 04-28-2025 11:00-0400 Body weight 73.[address] Griselda Alvarado MD Work Phone: 2(471)630-253451 [place] [address] 04-28-2025 11:00-0400 Diastolic blood pressure 68 mm[Hg] Dr. Griselda Alvarado MD Work Phone: 2(608)636-205024 [address] 04-28-2025 11:00-0400 Systolic blood pressure 108 mm[Hg] Dr. Griselda Alvarado MD Work Phone: 9(370)336-673524 [address] 04-21-2025 09:54-0400 Body height 170.[address] Griselda Alvarado MD Work Phone: 0(771)257-793751 [place] [address] 04-21-2025 09:53-0400 Body mass index (BMI) [Ratio] 25.2 kg/m2 Dr. Girselda Alvarado MD Work Phone: 4(723)375-122951 [place] [address] 04-21-2025 09:53-0400 Body weight 73.[address] Griselda Alvarado MD Work Phone: 6(926)110-674351 [place] [address] 04-21-2025 09:53-0400 Diastolic blood pressure 73 mm[Hg] Dr. Griselda Alvarado MD Work Phone: 7(460)954-593624 [address] 04-21-2025 09:53-0400 Systolic blood pressure 117 mm[Hg] Dr. Griselda Alvarado MD Work Phone: 2(430)198-331024 [address] 04-15-2025 13:03-0400 Body height 170.[address] Griselda Alvarado MD Work Phone: 6(910)101-473151 [place] [address] 04-15-2025 13:02-0400 Body mass index (BMI) [Ratio] 25.9 kg/m2 Dr. Griselda Alvarado MD Work Phone: 7(782)707-438504 [place] [address] 04-15-2025 13:02-0400 Body weight 75.[address] Griselda Alvarado MD Work Phone: 0(342)971-601851 [place] [address] 04-15-2025 13:02-0400 Diastolic blood pressure 70 mm[Hg] Dr. Griselda Alvarado MD Work Phone: 8(144)522-012624 [address] 04-15-2025 13:02-0400 Systolic blood pressure 105 mm[Hg] Dr. Griselda Alvarado MD Work Phone: 8(454)765-582924 [address] 04-08-2025 15:50-0400 Body height 170.[address] Griselda Alvarado MD Work Phone: 4(857)193-547851 [place] [address] 04-08-2025 15:50-0400 Body mass index (BMI) [Ratio] 25.3 kg/m2 Dr. Griselda Alvarado MD Work Phone: 5(310)974-617351 [place] [address] 04-08-2025 15:50-0400 Body weight 73.[address] Griselda Alvarado MD Work Phone: 6(627)974-045551 [place] [address] 04-08-2025 15:50-0400 Diastolic blood pressure 65 mm[Hg] Dr. Griselda Alvarado MD Work Phone: 0(525)000-581051 [place] [address] 04-08-2025 15:50-0400 Systolic blood pressure 115 mm[Hg] Dr. Griselda Alvarado MD Work Phone: 3(386)898-564851 [address] [place] [address] 03-22-2025 10:57-0400 Body height 170.[address] Griselda Alvarado MD Work Phone: 5(900)254-949351 [place] [address] 03-22-2025 10:57-0400 Body mass index (BMI) [Ratio] 25.2 kg/m2 Dr. Griselda Alvarado MD Work Phone: 8(848)221-058451 [place] [address] 03-22-2025 10:57-0400 Body weight 73.[address] Griselda Alvarado MD Work Phone: 5(523)508-876451 [place] [address] 03-22-2025 10:57-0400 Diastolic blood pressure 68 mm[Hg] Dr. Griselda Alvarado MD Work Phone: 0(561)810-594151 [place] [address] 03-22-2025 10:57-0400 Systolic blood pressure 112 mm[Hg] Dr. Griselda Alvarado MD Work Phone: 7(026)407-939451 [place] [address] 03-09-2025 09:45-0400 Body height 170.[address] Griselda Alvarado MD Work Phone: 2(944)082-790451 [place] [address] 03-09-2025 09:44-0400 Body mass index (BMI) [Ratio] 25 kg/m2 Dr. Griselda Alvarado MD Work Phone: 9(980)700-440357 [place] [address] 03-09-2025 09:44-0400 Body weight 72.[address] Griselda Alvarado MD Work Phone: 8(524)071-116724 [address] 03-09-2025 09:44-0400 Diastolic blood pressure 66 mm[Hg] Dr. Griselda Alvarado MD Work Phone: 0(019)344-774124 [address] 03-09-2025 09:44-0400 Systolic blood pressure 101 mm[Hg] Dr. Griselda Alvarado MD Work Phone: 4(780)294-834651 [place] [address] 02-25-2025 13:05-0400 Body mass index (BMI) [Ratio] 25.2 kg/m2 Dr. Griselda Alvarado MD Work Phone: 7(092)013-392551 [place] [address] 02-25-2025 13:05-0400 Body weight 73.[address] Griselda Alvarado MD Work Phone: 3(417)266-913051 [place] [address] 02-25-2025 13:05-0400 Diastolic blood pressure 56 mm[Hg] Dr. Griselda Alvarado MD Work Phone: 5(758)177-116751 [place] [address] 02-25-2025 13:05-0400 Systolic blood pressure 93 mm[Hg] Dr. Griselda Alvarado MD Work Phone: 1(371)722-455851 [place] [address] 02-11-2025 10:10-0400 Body mass index (BMI) [Ratio] 25.2 kg/m2 Dr. Griselda Alvarado MD Work Phone: 2(695)992-924351 [place] [address] 02-11-2025 10:10-0400 Body weight 73.[address] Griselda Alvarado MD Work Phone: 5(253)611-281551 [place] [address] 02-11-2025 10:10-0400 Diastolic blood pressure 64 mm[Hg] Dr. Griselda Alvarado MD Work Phone: 1(941)826-329651 [place] [address] 02-11-2025 10:10-0400 Systolic blood pressure 106 mm[Hg] Dr. Griselda Alvarado MD Work Phone: 6(748)898-929724 [address] 01-28-2025 13:02-0400 Body mass index (BMI) [Ratio] 24.8 kg/m2 Dr. Griselda Alvarado MD Work Phone: 4(239)041-207357 [place] [address] 01-28-2025 13:02-0400 Body weight 71.[address] Griselda Alvarado MD Work Phone: 6(408)318-375824 [address] 01-28-2025 13:02-0400 Diastolic blood pressure 67 mm[Hg] Dr. Griselda Alvarado MD Work Phone: 8(943)301-830551 [place] [address] 01-28-2025 13:02-0400 Systolic blood pressure 105 mm[Hg] Dr. Griselda Alvarado MD Work Phone: 2(359)966-419051 [place] [address] 12-31-2024 10:02-0400 Body mass index (BMI) [Ratio] 24.6 kg/m2 Dr. Griselda Alvarado MD Work Phone: 2(596)608-232851 [place] [address] 12-31-2024 10:02-0400 Body weight 71.[address] Griselda Alvarado MD Work Phone: 6(884)598-960224 [address] 12-31-2024 10:02-0400 Diastolic blood pressure 63 mm[Hg] Dr. Griselda Alvarado MD Work Phone: 0(475)959-218351 [place] [address] 12-31-2024 10:02-0400 Systolic blood pressure 94 mm[Hg] Dr. Griselda Alvarado MD Work Phone: 7(306)660-533304 [place] [address] 12-02-2024 14:58-0500 Body mass index (BMI) [Ratio] 24 kg/m2 Dr. Griselda Alvarado MD Work Phone: 8(412)203-958324 [address] 12-02-2024 14:58-0500 Body weight 69.[address] Griselda Alvarado MD Work Phone: 8(000)326-736951 [place] [address] 12-02-2024 14:58-0500 Diastolic blood pressure 74 mm[Hg] Dr. Griselda Alvarado MD Work Phone: 8(821)770-777124 [address] 12-02-2024 14:58-0500 Systolic blood pressure 112 mm[Hg] Dr. Griselda Alvarado MD Work Phone: [facility] 04-15-2024 14:55-0400 Body mass index (BMI) [Ratio] 22.7 kg/m2 Annelise Plotts LANGUAGE THERAPIST.CNM Work Phone: [facility] 04-15-2024 14:55-0400 Body weight 65.14 kg Annelise Plotts LANGUAGE THERAPIST.CNM Work Phone: [facility] 04-15-2024 14:55-0400 Diastolic blood pressure 70 mm[Hg] Annelise Plotts LANGUAGE THERAPIST.CNM Work Phone: [facility] 04-15-2024 14:55-0400 Systolic blood pressure 106 mm[Hg] Annelise Plotts LANGUAGE THERAPIST.CNM Work Phone: [facility] 03-26-2024 10:08-0400 Body height 169.4 cm Annelise Plotts LANGUAGE THERAPIST.CNM Work Phone: [facility] 03-26-2024 10:08-0400 Body mass index (BMI) [Ratio] 22.92 kg/m2 Annelise Plotts LANGUAGE THERAPIST.CNM Work Phone: [facility] 03-26-2024 10:08-0400 Body weight 65.77 kg Annelise Plotts LANGUAGE THERAPIST.CNM Work Phone: [facility] 03-26-2024 10:08-0400 Diastolic blood pressure 66 mm[Hg] Annelise Plotts LANGUAGE THERAPIST.CNM Work Phone: [facility] 03-26-2024 10:08-0400 Systolic blood pressure 92 mm[Hg] Annelise Plotts LANGUAGE THERAPIST.CNM Work Phone: [facility] Encounters Encounter Date Encounter Type Care Provider Facility Start: 05-10-2025 End: 05-10-2025 [facility] Facility:[facility] Start: 05-10-2025 End: 05-10-[address] Elle Stallings DO -[facility] Work Phone: Start: 05-05-2025 End: 05-05-[address] Pamela Beebe MD -[facility] Work Phone: Start: 05-05-2025 End: 05-05-[address] Griselda Alvarado MD Work Phone: -[facility] Start: 04-28-2025 ambulatory Elle Lao cility:[facility] Start: 04-28-2025 Non-patient / Non-visit Dr. Edgardo Stallings DO -[facility] Start: 04-28-2025 End: 04-28-[address] Griselda Alvarado MD Work Phone: -[facility] Start: 04-28-2025 End: 04-28-[address] Elle Stallings DO -[facility] Work Phone: Start: 04-28-2025 End: 04-28-2025 Patient encounter procedure Elizabeth Martin CNM -[facility] @ Start: 04-28-2025 End: 04-28-[address] Griselda Alvarado MD Work Phone: -[facility] @ Start: 04-21-2025 End: 04-21-[address] Elle Stallings DO -[facility] Work Phone: Start: 04-21-2025 End: 04-21-[address] Griselda Alvarado MD Work Phone: -[facility] Start: 04-15-2025 End: 04-15-2025 Patient encounter procedure Isabelle ALVAREZ -[facility] Work Phone: Start: 04-15-2025 End: 04-15-[address] Griselda Alvarado MD Work Phone: [facility] Work Phone: Start: 04-14-2025 End: 04-14-[address] Griselda Alvarado MD Work Phone: -Ultrasound [facility] Start: 04-14-2025 End: 04-14-2025 Patient encounter procedure Elizabeth Martin CNM -Ultrasound [facility] Work Phone: Start: 04-14-2025 End: 04-14-2025 [facility] Start: 04-08-2025 End: 04-08-2025 Patient encounter procedure [facility] Work Phone: Start: 04-08-2025 End: 04-08-[address] Griselda Alvarado MD Work Phone: [facility] Work Phone: Start: 04-08-2025 End: 04-08-[address] [facility] Start: 03-22-2025 End: 03-22-2025 Patient encounter procedure [facility] Martin CNM [facility] Work Phone: Start: 03-22-2025 End: 03-22-[address] Griselda Alvarado MD Work Phone: [facility] Work Phone: Start: 03-09-2025 End: 03-09-2025 Patient encounter procedure Elizabeth Martin CNM -[facility] Work Phone: Start: 03-09-2025 End: 03-09-[address] Griselda Alvarado MD Work Phone: [facility] Work Phone: Start: 02-25-2025 End: 02-25-2025 Patient encounter procedure Isabelle ALVAREZ -[facility] Work Phone: Start: 02-25-2025 End: 02-25-2025 ambulatory Griselda Alvarado Facility:[facility] Start: 02-11-2025 End: 02-11-2025 Patient encounter procedure Isabelle ALVAREZ -[facility] Work Phone: Start: 02-11-2025 End: 02-11-2025 [facility] Start: 02-11-2025 End: 02-11-2025 ambulatory [facility] Facility:[facility] Start: 01-28-2025 End: 01-28-[address] Elle Stallings DO -[facility] Work Phone: Start: 01-28-2025 End: 01-28-2025 ambulatory Elle Stallings Facility:[facility] Start: 12-31-2024 End: 12-31-[address] Elle Stallings DO -[facility] Work Phone: Start: 12-31-2024 End: 12-31-2024 ambulatory Griselda [facility] Facility:[facility] Start: 12-24-2024 End: 12-24-2024 ambulatory JOSEPHINE HENDERSON [facility] Start: 12-10-2024 End: 12-10-2024 ambulatory JALYN ELLIS [facility] Start: 12-02-2024 End: 12-02-[address] Pamela Beebe MD -[facility] Work Phone: Start: 12-02-2024 End: 12-02-2024 ambulatory Griselda Alvarado Facility:[facility] Start: 11-06-2024 End: 11-06-2024 ambulatory [facility] Facility:[facility] Start: 10-02-2024 End: 10-02-2024 ambulatory [facility] Facility:[facility] Start: 10-02-2024 End: 10-02-2024 ambulatory Elizabeth Martin Facility:[facility] Start: 04-15-2024 End: 04-15-2024 ambulatory ANNELISE GARLAND Facility:[facility] Start: 04-15-2024 End: 04-15-2024 Patient encounter procedure Annelise Garland APRN.CNM Work Phone: OB/Gynecology Comment on above: Encounter for IUD re moval (Primary Dx); Other acne; Breakthrough bleeding associated with intrauterine device (IUD) Start: 03-26-2024 End: 03-26-2024 ambulatory ANNELISE GARLAND Facility:[facility] Start: 03-26-2024 End: 03-26-2024 Patient encounter procedure Annelise Garland LANGUAGE THERAPIST.CNM Work Phone: OB/Gynecology Comment on above: Encounter for gyneco logical examination (general) (routine) without abnormal findings (Primary Dx); Encounter for IUD removal Start: 03-26-2024 End: 03-26-2024 Patient encounter status Annelise Garland LANGUAGE THERAPIST.CNM Work Phone: [facility] Start: 03-23-2022 End: 03-23-2022 Patient encounter procedure [facility]-Laboratory, Specimen Start: 01-12-2021 End: 01-12-2021 Patient encounter procedure MEGHAN MEDRANO [facility] Procedures Date Procedure Procedure Detail Performing Clinician Start: 04-28-2025 Ultrasonography for antepartum monitoring of fetus Dr. Griselda Alvarado MD Work Phone: Start: 04-14-2025 Ultrasound scan for growth Dr. Griselda Alvarado MD Work Phone: Start: 04-08-2025 Beta-hemolytic Strep tococcus culture Dr. Griselda Alvarado MD Work Phone: Start: 02-11-2025 Serologic test for syphilis Dr. Griselda Alvarado MD Work Phone: Plan of Treatment Date Care Activity Detail Author Start: 08-11-2029 Urine microalbumin profile DTaP,Tdap,Td Vaccine (2 - Td or Tdap) [facility] Start: 03-23-2027 Screening for malign ant neoplasm of cervix Pap Testing [facility] Start: 04-28-2025 Nonstress test [facility] Start: 04-28-2025 Obstetric monitoring [facility] Start: 04-28-2025 Ultrasonography for antepartum monitoring of fetus [facility] Start: 04-28-2025 [facility] Start: 04-28-2025 Vital signs measurements [facility] Start: 04-28-2025 Patient discharge [facility] Start: 03-23-2025 Screening for malign ant neoplasm of cervix Cervical Cancer Screening [facility] Start: 06-21-2024 Influenza vaccination Influenz a Vaccine (Season Ended) [facility] Start: 04-15-2024 End: 04-15-2024 Patient encounter procedure 04/15/2024 2:45 PM EDT Office Visit OB/Gynecology [address] [place] [address] Annelise Garland APRN.CNM [address] [place] [address] IUD Removal OB/Gynecology Comment on above: IUD Removal Start: 01-27-2024 Screening for malign ant neoplasm of cervix HPV Testing [facility] Start: 10-21-2023 Behavioral Health Screening Behavioral Health Screening [facility] Start: 06-21-2023 Covid-19 Vaccine ( season) Covid-19 Vaccine ( season) [facility] Start: 2013 Hepatitis B Vaccine (1 of 3 - 19+ 3-dose series) Hepatitis B Vaccine (1 of 3 - 19+ 3-dose series) [facility] Start: 01-27-2012 Hepatitis C screening Hepatitis C Sc reening [facility] Start: 01-27-2012 HIV screening HIV Screening [facility] Patient Education Kick Counts ED False Labor OB Triage: Return to Hospital or Notify Physician if you Experience: [facility] Work Phone: Removal intrauterine device iud REMOVE INTRAUTERINE DEVICE Procedures Routine Encounter for IUD removal Ordered: 03/26/2024 [facility] Work Phone: Comment on above: Ordered: 03/26/2024 Streptococcus agalac tiae [Presence] in Unspecified specimen by Organism specific culture [facility] Ultrasound scan for growth [facility] Immunizations Immunization Date Immunization Notes Care Provider Fa sacha 02-11-2025 tetanus toxoid, reduced diphtheria toxoid, and acellular pertussis vaccine, adsorbed Dr. Griselda Alvarado MD Work Phone: [facility] 12-28-2020 influenza virus vaccine, unspecified formulation Annelise Garland APRN.CNLeann Work Phone: [facility] Payers Date Payer Category Payer Self-pay [id number] 2017 Unknown 2017 Unknown [id number] 1995 Unknown [id number] 2.16.84 [id number] 1995 Unknown [id number] 2.16. 840.1.502800.3.579.2.479 1995 Unknown [id number] 2.16. 840.1.604775.3.579.2.479 Unknown [id number] 2.16.8 40.1.169664.3.579.2.462 Unknown [id number] 2.16.8 40.1.709861.3.579.2.462 Unknown [id number] 2.16.8 40.1.849733.3.579.2.462 Unknown [id number] 2.16.8 40.1.443790.3.579.2.462 Unknown [id number] 2.16.8 40.1.663142.3.579.2.462 Unknown [id number] 2.16.8 40.1.709107.3.579.2.462 Unknown [id number] 2.16.8 40.1.881889.3.579.2.462 Unknown [id number] 2.16.8 40.1.379054.3.579.2.462 Unknown [id number] 2.16.8 40.1.322561.3.579.2.462 Unknown [id number] 2.16.8 40.1.723737.3.579.2.462 Unknown [id number] 2.16.8 40.1.492737.3.579.2.462 Unknown [id number] 2.16.8 40.1.509114.3.579.2.462 Unknown [id number] 2.16.8 40.1.503882.3.579.2.462 Unknown [id number] 2.16.8 40.1.894219.3.579.2.462 Unknown [id number] 2.16.8 40.1.326588.3.579.2.462 Unknown [id number] 2.16.8 40.1.726004.3.579.2.462 Unknown [id number] 2.16.8 40.1.988847.3.579.2.462 Unknown [id number] 2.16.8 40.1.408514.3.579.2.462 Unknown [id number] 2.16.8 40.1.414387.3.579.2.462 Unknown [id number] 2.16.8 40.1.250263.3.579.2.462 Unknown [id number] 2.16.8 40.1.641300.3.579.2.462 Social History Date Type Detail Facility Start: 08-09-2021 Tobacco smoking stat us NMIS Unknown if ever smoked [facility] Work Phone: Start: 1995 Sex Assigned At Female [facility] Start: 03-26-2024 End: 09-22-2024 Tobacco smoking status NHIS Never smoked tobacco [facility] Start: 03-26-2024 Tobacco use and exposure Smokeless tobacco non-user [facility] Start: 03-26-2024 End: 04-15-2024 Alcohol intake Current drinker of alcohol (finding) [facility] Start: 03-26-2024 End: 04-15-2024 History of Social function [facility] Start: 03-26-2024 End: 04-15-2024 Tobacco use panel [facility] National Score (1-10 0), lower number is lower risk 50 [facility] Start: 03-26-[address] [facility] Start: 1995 Sex Assigned At Not on file [facility] Start: 03-26-2024 Sexual orientation Heterosexual (shayy jang) [facility] Clinical Notes 03-26-2024 to 06-25-2025 Note Date & Type Note Facility 04-14-2025 Radiology Diagnostic study note [facility] Imaging Services [address] [place] [address] OB Limited With Biometrics MR#: [id number] Acct: [id number] Name: RISA VELA Rep #: [id number] : 1995 F 30 From: Darwin Rice MD PCP: Dr. Griselda Alvarado MD Status: R EG CLI Study:OB Limited With Biometrics Date of Exam : 04/14/25 Exam# [id number] Ordering Dr: Elizabeth Martin CNM PROCEDURE: OB LIMITED WITH BIOMETRICS 04/14/2025 REASON FOR EXAM: S [facility] 04-08-2025 Progress note [facility] 04-08-2025 Progress note Note Date/Time April 08, 2025 4:16pm [facility] [address], [address] [place] [address] OFFICE VISIT Date of Service: 04/08/25 MR#: [id number] Acct: [id number] Name: RISA VELA Rep #: [id number] : 1995 Provider: HARJEET Martin Age/Sex: 30/F Location: [facility] Status: Signed Intake Vital Signs 02/25/25 13:05 03/22/25 10:57 04/08/25 15:50 Height 5 ft 7 in 5 ft 7 in 5 ft 7 in Weight: 162 lb BMI 25.3 BP 115/65 Intake Visit Reasons: 36 wk ob Chief Complaint: 36 Week OB 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 Is patient in pain?: No Allergies No Known Allergies Allergy (Verified 04/08/25 15:50) Medications ?Medication ?Instructions ?Recorded ?Confirmed ?Type PNV 153-FA 400 mcg-om3 35 mg-dha tab PO 09/22/2404/08 History 25 mg-epa 5 mg-fish oil chew tablet ondansetron HCl 4 mg tablet 4 mg PO Q4H #60 tabs 12/0204/08/25 Rx Last Menstrual Period: 07/29/24 Zika: Zika virus screening: Negative : No PFSH PFSH Medical History Vaginal delivery Depression Surgical History H/O arthroscopic knee surgery Bat[place] teeth extracted Family History Grandfather Heart disease Paternal Cancer Paternal- skin cancer Social History adopted: No household members: spouse and children number of children: 2 current occupational status: employed 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 current occupational exposures/hazards: No pets and animals: Yes pets and animals: dog(s) history of recent travel: Yes ([place], [place], [place], , [place], [place]) out of state: Yes out of country: No Smoking Status: Never smoker alcohol intake: current alcohol intake frequency: holidays/special occasions only details: Not while substance use type: does not use well-balanced diet: daily or most days caffeine: No eating out: rarely or never during the past year weight has: remained stable what type of physical activity do you participate in: running and other details: crossfit frequency: 5-6 times per week duration: 45-60 minutes/day romie/adventist: Christianity seatbelt use: always do you feel safe at home: Yes additional social history: Ismael Rodriguez History 3 Elective abortions Hx Para 2 Spontaneous abortions Hx # Term Pregnancies Ectopic pregnancies Hx # Pregnancies Multiple births # of living children 2 Past Pregnancies Del. Date Name GA/Weeks Outcome Route Bth Weight Infant Gen Labor Lgth Anesthesia Del Locatn Provider FOB 09/16/19 Angelo 37 live - full term 7#2oz Male 16 hr epidur al [facility] Dr. Nadiya Jimenez 08/09/21 Elijah 39 live - full term 7#12oz Male 3 Hrs none [facility] Dr. Kari Jimenez Delivery Date: 09/16/19 Last Updated by: Maru Kingsley SROM HPI 36 wk ob Details: RISA VELA is a 30 year old who presents for routine OB visit. OB Visit [facility]OX[facility] Calculator Estimated Delivery Date Method Current WG Current Estimate 05/05/25 LMP (Certain) 36w 1d Other Estimates 05/07/25 Ultrasound #1 35w 6d Expected Delivery Route/Plan Labor Preferences- CB/BF classes: no labor support person: Tony labor intervention preferences: [] pain management options preferred: limited cut cord/dad catch: cord : yes PP control planned: discussed discussed possible routes of delivery and associated risks: [] special requests: [] Specific Issue/Plans Covid status: [] Flu vaccine: [] Tdap vaccine: given Rhogam: given 02/11/25 LARC form signed: yes Problem list reviewed and updated with the most current plan of care details and appropriate orders placed. Relevant counseling for the gestational age provided. Continue routine care and follow up unless otherwise noted in visit notes/problem list details Initial Weight: Not Recorded Date -?-?-?-?-?--?-?-?-?-?-?-?- EGA Weight BP Urine Prot -?-?-?-?-?-?-?-?-?-?-?-?- Glucose FHR FuHt Pres Dilation -?-?-?-?-?-?-?-?-?-?-?-?- Effaced St Visit Note 10/02/24 -?-?-?-?-?-?-?-?-?-?-?-?- 9w 2d 143 lb 97/62 -?-?-?-?-?-?-?-?-?-?-?-?- 190 -?-?-?-?-?-?-?-?-?-?-?-?- KW-CRL cons with dates. Declines NIPT 11/06/24 -?-?-?-?-?-?-?-?-?-?-?-?- 14w 2d 145 lb 110/69 Negative -?-?-?-?-?-?-?-?-?-?-?-?- Negative 143 -?-?-?-?-?-?-?-?-?-?-?-?- LC- no vb/crampi ng. declines afp. anatomy ordered. 12/02/24 -?-?-?-?-?-?-?-?-?-?-?-?- 18w 0d 153 lb 4 oz 112/74 Nega tive -?-?-?-?-?-?-?-?-?-?-?-?- Negative 140 -?-?-?-?-?-?-?-?-?-?-?-?- SM- co nausea, a nd some heartburn 12/31/24 -?-?-?-?-?-?-?-?-?-?-?-?- 22w 1d 157 lb 4 oz 94/63 Nega tive -?-?-?-?-?-?-?-?-?-?-?-?- Negative 150 -?-?-?-?-?-?-?-?-?-?-?-?- JV- follow up an atomy was normal. still some nausea at night, overall doing well. 01/28/25 -?-?-?-?-?-?-?-?-?-?-?-?- 26w 1d 158 lb 8 oz 105/67 Nega tive -?-?-?-?-?-?-?-?-?-?-?-?- Negative 144 24.5 -?-?-?-?-?-?-?-?-?-?-?-?- JV- no complaint s today. + fm. planning glucola next visit. 02/11/25 -?-?--?-?-?-?-?-?-?-?-?-?- 28w 1d 161 lb 4 oz 106/64 Nega tive -?-?-?-?-?-?-?-?-?-?-?-?- Negative 146 27 -?-?-?-?-?-?-?-?-?-?-?-?- MH-No VB, lof. G ood FM. 28 wk labs, rhogam, tdap, larc 02/25/25 -?-?-?-?-?-?-?-?-?-?-?-?- 30w 1d 161 lb 6 oz 93/56 Nega tive -?-?-?-?-?-?-?-?-?-?-?-?- Negative 153 29 -?-?-?-?-?-?-?-?-?-?-?-?- MH-No VB, LOF. G ood Fm. Denies concerns 03/09/25 -?-?-?-?-?-?-?-?-?-?-?-?- 31w 6d 159 lb 6 oz 101/66 Nega tive -?-?-?-?-?-?-?-?-?-?-?-?- Negative 155 30 -?-?-?-?-?-?-?-?-?-?-?-?- KW- no vb/lof/ct x. good fm. no concerns today. 03/22/25 -?-?-?-?-?-?-?-?-?-?-?-?- 33w 5d 161 lb 2 oz 112/68 Nega tive -?-?-?-?-?-?-?-?-?-?-?-?- Negative 140 32 -?-?-?-?-?-?-?-?-?-?-?-?- KW- no vb/lof/ct x. good fm. denies concerns 04/08/25 -?-?-?-?-?-?-?-?-?-?-?-?- 36w 1d 162 lb 115/65 Negative -?-?-?-?-?-?-?-?-?-?-?-?- Negative 135 33 Cephalic 1 -?-?-?-?-?-?--?-?-?-?-?-?- 60 -2 KW- no vb/ lof/ reg ctx. gbs today. growth US ordered for S<D KW- no vb/lof/ reg ctx. gbs today. growth US ordered for S<D. BRE 11- reviewed by JV and agrees. ACOG First Trimester First Trimester: Desire for , Alcohol, Tobacco Cessation, Illicit/Recreational Drug/Substance Use, Intimate Partner Violence, Barriers to care, Anticipated Course of Care, Use of Any medications, Sexual activity, Exercise, Dental Care, Sauna/Hot tub use, Seat Belt use, Childbirth classes/Hospital facilities, Travel, Indications for Ultrasound and Screening for Aneuploidy; Discussed Unstable Housing, Discussed Communication Barriers, Discussed Environmental/Work Hazards, Discussed Toxoplasmosis Precations and Discussed Second Trimester Second Trimester: Signs and Symptoms of Labor, Selecting a care provider, Reproductive Life Planning & Contreception, Care Planning, Depression/Anxiety and Intimate Partner Violence; Discussed Tobacco Cessation Third Trimester Third Trimester: Pain Management Plans, Labor support person(s), Immediate Larc, Circumcision preference, Signs and Symptoms of Preeclampsia, Infant Feeding No , Education, Family Medical Leave or Disability Forms and Depression; Discussed Intimate Partner Violence ROS Const Reports system reviewed and no additional complaints, except as documented Eyes Reports system reviewed and no additional complaints, except as documented ENT Reports system reviewed and no additional complaints, except as documented Card Reports system reviewed and no additional complaints, except as documented Resp Reports system reviewed and no additional complaints, except as documented GI Reports system reviewed and no additional complaints, except as documented, Denies nausea and Denies vomiting Reports system reviewed and no additional complaints, except as documented Musc Reports system reviewed and no additional complaints, except as documented Skin/Breast Reports system reviewed and no additional complaints, except as documented Neuro Yes system reviewed and no additional complaints, except as documented Psych Reports system reviewed and no additional complaints, except as documented Endo Reports system reviewed and no additional complaints, except as documented Jesus/Lymph Reports system reviewed and no additional complaints, except as documented Aller/Immun Reports system reviewed and no additional complaints, except as documented Exam Const General: cooperative, healthy appearing and no acute distress Orientation: alert, awake and oriented x3 Neck Neck: normal visual inspection and full ROM Resp Effort & Inspection: normal respiratory effort, able to speak in complete sentences and symmetric chest movement GI Inspection: normal to inspection Palpation: soft and other Other: gravid Skin General: no rashes or lesions noted Neuro General: patient alert, patient awake and patient oriented x3 Cognition: normal cognition Speech: speech normal Gait: normal gait Motor: muscle tone normal throughout Extrem General: normal to inspection and full ROM Psych Appearance: grossly normal Mental Status: mental status grossly normal Mood: congruent mood Affect: normal affect Speech and Movement: speech and movement normal Attitude: cooperative Thought Process: normal Thought Content: normal Judgment: judgment good Results POC Urinalysis 2 Dip (Clinic) Office Urine Glucose Negative Last Edit by Claudia Landry on 04/08/25 15 :54 Office Urine Protein Negative Last Edit by Claudia Landry on 04/08/25 15 :54 Coding Level of Care Code OB Routine Diagnoses 36 weeks gestation of Z3A.36 Weeks of gestation: 36 weeks Supervision of high risk in third trimester O09.93 Trimester: third trimester Rh negative status during in third trimester O26.893; Z67.91 Trimester: third trimester ADHD (attention deficit hyperactivity disorder) F90.9 Uterine size date discrepancy O26.849 Assessment and Plan Assessment and Plan (1) : Status: Acute Qualifiers: Weeks of gestation: 36 weeks Qualified Code(s): Z3A.36 - 36 weeks gestation of Comment: declined NIPT & Carrier testing, nl anatomy (2) Supervision of high-risk : Status: Acute Qualifiers: Trimester: third trimester Qualified Code(s): O09.93 - Supervision of high risk , unspecified, third trimester Comment: PRR, , ROXANA 05/05/25, PC Elijah Stephens, Tony (3) Rh negative status during : Status: Acute Qualifiers: Trimester: third trimester Qualified Code(s): O26.893 - Other specified related conditions, third trimester; Z67.91 - Unspecified blood type, Rh negative Comment: Rhogam 28 wks & PRN Bleeding. Given 02/11/25 (4) ADHD (attention deficit hyperactivity disorder): Status: Acute (5) Uterine size date discrepancy : Status: Acute Orders: Orders POC Urinalysis 2 Dip (Clinic) Today Culture, Group B Streptococcus Today O09.93 - Supervision of high risk , unspecified, third trimester OB Limited With Biometrics Today O26.849 - Uterine size-date discrepancy, unspecified trimester Plan Details Additional Comments: ACOG trimester education reviewed and updated. see problem list details for updated plan management information and see below for orders placed at this visit. [place] appropriate handout given. 04/08/25 1616 <Electronically signed by Elizabeth stout CNM> Date _ Elizabeth Martin CNM Cosigner Signature: Date (if applicable) CC: ~ [facility] Work Phone: [phone] 403-605406-02-2025 [facility] [address], [address] [place] [address] OFFICE VISIT Date of Service: 03/22/25 MR#: [id number] Acct: [id number] Name: RISA VELA Rep #: [id number] : 1995 Provider: HARJEET Martin Age/Sex: 30/F Location: [facility] Status: Signed Intake Vital Signs 02/11/25 10:10 03/09/25 09:45 03/22/25 10:57 Height 5 ft 7 in 5 ft 7 in 5 ft 7 in Weight: 161 lb 2 oz BMI 25.2 BP 112/68 Intake Visit Reasons: 34 wk ob Chief Complaint: 34wk OB 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 Is patient in pain?: No Allergies No Known Allergies Allergy (Verified 03/22/25 10:55) Medications ?Medication ?Instructions ?Recorded ?Confirmed ?Type PNV 153-FA 400 mcg-om3 35 mg-dha tab PO 09/22/2403/22 History 25 mg-epa 5 mg-fish oil chew tablet ondansetron HCl 4 mg tablet 4 mg PO Q4H #60 tabs 12/0203/22/25 Rx Last Menstrual Period: 07/29/24 : Yes Have you fallen in the past year?: No PFSH PFSH Medical History Vaginal delivery Depression Surgical History H/O arthroscopic knee surgery [place] teeth extracted Family History Grandfather Heart disease Paternal Cancer Paternal- skin cancer Social History adopted: No household members: spouse and children number of children: 2 current occupational status: employed 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 current occupational exposures/hazards: No pets and animals: Yes pets and animals: dog(s) history of recent travel: Yes ([place], [place], [place], [place], [place], [place]) out of state: Yes out of country: No Smoking Status: Never smoker alcohol intake: current alcohol intake frequency: holidays/special occasions only details: Not while substance use type: does not use well-balanced diet: daily or most days caffeine: No eating out: rarely or never during the past year weight has: remained stable what type of physical activity do you participate in: running and other details: crossfit frequency: 5-6 times per week duration: 45-60 minutes/day romie/adventist: Christianity seatbelt use: always do you feel safe at home: Yes additional social history: Ismael Rodriguez History 3 Elective abortions Hx Para 2 Spontaneous abortions Hx # Term Pregnancies Ectopic pregnancies Hx # Pregnancies Multiple births # of living children 2 Past Pregnancies Del. Date Name GA/Weeks Outcome Route Bth Weight Infant Gen Labor Lgth Anesthesia Del Locatn Provider FOB 09/16/19 Angelo 37 live - full term 7#2oz Male 16 hr epidur al [facility] Dr. Nadiya Jimenez 08/09/21 Elijah 39 live - full term 7#12oz Male 3 Hrs none [facility] Dr. Kari Jimenez Delivery Date: 09/16/19 Last Updated by: Maru Kingsley SROM HPI 34 wk ob Details: RISA VELA is a 30 year old who presents for routine OB visit. OB Visit ROXANA Calculator Estimated Delivery Date Method Current WG Current Estimate 05/05/25 LMP (Certain) 33w 5d Other Estimates 05/07/25 Ultrasound #1 33w 3d Expected Delivery Route/Plan Labor Preferences- CB/BF classes: no labor support person: Tony labor intervention preferences: [] pain management options preferred: limited cut cord/dad catch: cord : yes PP control planned: discussed discussed possible routes of delivery and associated risks: [] special requests: [] Specific Issue/Plans Covid status: [] Flu vaccine: [] Tdap vaccine: given Rhogam: given 02/11/25 LARC form signed: yes Problem list reviewed and updated with the most current plan of care details and appropriate ordersplaced. Relevant counseling for the gestational age provided. Continue routine care and follow up unless otherwise noted in visit notes/problem list details Initial Weight: Not Recorded Date -?-?-?-?-?-?-?-?-?-?-?-?- EGA Weight BP Urine Prot -?-?-?-?-?-?-?-?-?-?-?-?- Glucose FHR FuHt Pres Dilation -?-?-?-?-?-?-?-?-?-?-?-?- Effaced St Visit Note 10/02/24 -?-?-?-?-?-?-?-?-?-?-?-?- 9w 2d 143 lb 97/62 -?-?-?-?-?-?-?-?-?-?-?-?- 190 -?-?-?-?-?-?-?-?-?-?-?-?- KW-CRL cons with dates. Declines NIPT 11/06/24 -?-?-?-?-?-?-?-?-?-?-?-?- 14w 2d 145 lb 110/69 Negative -?-?-?-?-?-?-?-?-?-?-?-?- Negative 143 -?-?-?-?-?-?-?-?-?-?-?-?- LC- no vb/crampi ng. declines afp. anatomy ordered. 12/02/24 -?-?-?-?-?-?-?-?-?-?-?-?- 18w 0d 153 lb 4 oz 112/74 Nega tive -?-?-?-?-?-?-?-?-?-?-?-?- Negative 140 -?-?-?-?-?-?-?-?-?-?-?-?- SM- co nausea, a nd some heartburn 12/31/24 -?-?-?-?-?-?-?-?-?-?-?-?- 22w 1d 157 lb 4 oz 94/63 Nega tive -?-?-?-?-?-?-?-?-?-?-?-?- Negative 150 -?-?-?-?-?-?-?-?-?-?-?-?- JV- follow up an atomy was normal. still some nausea at night, overall doing well. 01/28/25 -?-?-?-?-?-?-?-?-?-?-?-?- 26w 1d 158 lb 8 oz 105/67 Nega tive -?-?-?-?-?-?-?-?-?-?-?-?- Negative 144 24.5 -?-?-?-?-?-?-?-?-?-?-?-?- JV- no complaint s today. + fm. planning glucola next visit. 02/11/25 -?-?-?-?-?-?-?-?-?-?-?-?- 28w 1d 161 lb 4 oz 106/64 Nega tive -?-?-?-?-?-?-?-?-?-?-?-?- Negative 146 27 -?-?-?-?-?-?-?-?-?-?-?-?- MH-No VB, lof. G ood FM. 28 wk labs, rhogam, tdap, larc 02/25/25 -?-?-?-?-?-?-?-?-?-?-?-?- 30w 1d 161 lb 6 oz 93/56 Nega tive -?-?-?-?-?-?-?-?-?-?-?-?- Negative 153 29 -?-?--?-?-?-?-?-?-?-?-?-?- MH-No VB, LOF. G ood Fm. Denies concerns 03/09/25 -?-?-?-?-?-?-?-?-?-?-?-?- 31w 6d 159 lb 6 oz 101/66 Nega tive -?-?-?-?-?-?-?-?-?-?-?-?- Negative 155 30 -?-?-?-?-?-?-?-?-?-?-?-?- KW- no vb/lof/ct x. good fm. no concerns today. 03/22/25 -?-?-?-?-?-?-?-?-?-?-?-?- 33w 5d 161 lb 2 oz 112/68 Nega tive -?-?-?-?-?-?-?-?-?-?-?-?- Negative 140 32 -?-?-?-?-?-?-?-?-?-?-?-?- KW- no vb/lof/ct x. good fm. denies concerns ACOG First Trimester First Trimester: Desire for , Alcohol, Tobacco Cessation, Illicit/Recreational Drug/Substance Use, Intimate Partner Violence, Barriers to care, Anticipated Course of Care, Use of Any medications, Sexual activity, Exercise, Dental Care, Sauna/Hot tub use, Seat Belt use, Childbirth c lasses/Hospital facilities, , Travel, Indications for Ultrasound and Screening for Aneuploidy; Discussed Unstable Housing, Discussed Communication Barriers, Discussed Environmental/Work Hazards and Discussed Toxoplasmosis Precations Second Trimester Second Trimester: Signs and Symptoms of Labor, Selecting a care provider, Reproductive Life Planning & Contreception, Care Planning, Depression/Anxiety and Intimate Partner Violence; Discussed Tobacco Cessation Third Trimester Third Trimester: Pain Management Plans, Labor support person(s), Immediate Larc, Circumcision preference, Signs and Symptoms of Preeclampsia, Feeding Yes , [place] Education, Family Medical Leave or Disability Forms and Depression; Discussed Intimate Partner Violence ROS Const Reports system reviewed and no additional complaints, except as documented Eyes Reports system reviewed and no additional complaints, except as documented ENT Reports system reviewed and no additional complaints, except as documented Card Reports system reviewed and no additional complaints, except as documented Resp Reports system reviewed and no additional complaints, except as documented GI Reports system reviewed and no additional complaints, except as documented, Denies nausea and Denies vomiting Reports system reviewed and no additional complaints, except as documented Musc Reports system reviewed and no additional complaints, except as documented Skin/Breast Reports system reviewed and no additional complaints, except as documented Neuro Yes system reviewed and no additional complaints, except as documented Psych Reports system reviewed and no additional complaints, except as documented Endo Reports system reviewed and no additional complaints, except as documented Jesus/Lymph Reports system reviewed and no additional complaints, except as documented Aller/Immun Reports system reviewed and no additional complaints, except as documented Exam Const General: cooperative, healthy appearing and no acute distress Orientation: alert, awake and oriented x3 Neck Neck: normal visual inspection and full ROM Resp Effort & Inspection: normal respiratory effort, able to speak in complete sentences and symmetric chest movement GI Inspection: normal to inspection Palpation: soft and other Other: gravid Skin General: no rashes or lesions noted Neuro General: patient alert, patient awake and patient oriented x3 Cognition: normal cognition Speech: speech normal Gait: normal gait Motor: muscle tone normal throughout Extrem General: normal to inspection and full ROM Psych Appearance: grossly normal Mental Status: mental status grossly normal Mood: congruent mood Affect: normal affect Speech and Movement: speech and movement normal Attitude: cooperative Thought Process: normal Thought Content: normal Judgment: judgment good Results POC Urinalysis 2 Dip (Clinic) Office Urine Glucose Negative Last Edit by Angle Gamboa on 03/22/25 11:01 Office Urine Protein Negative Last Edit by Angle Gamboa on 03/22/25 11:01 Coding Level of Care Code OB Routine Diagnoses Supervision of high risk in third trimester O09.93 Trimester: third trimester 33 weeks gestation of Z3A.33 Weeks of gestation: 33 weeks Rh negative status during in third trimester O26.893; Z67.91 Trimester: third trimester ADHD (attention deficit hyperactivity disorder) F90.9 Assessment and Plan Assessment and Plan (1) Supervision of high-risk : Status: Acute Qualifiers: Trimester: third trimester Qualified Code(s): O09.93 - Supervision of high risk , unspecified, third trimester Comment: PRR, , ROXANA 05/05/25, PC Elijah Stephens, Tony (2) : Status: Acute Qualifiers: Weeks of gestation: 33 weeks Qualified Code(s): Z3A.33 - 33 weeks gestation of Comment: declined NIPT & Carrier testing, nl anatomy (3) Rh negative status during : Status: Acute Qualifiers: Trimester: third trimester Qualified Code(s): O26.893 - Other specified related conditions, third trimester; Z67.91 - Unspecified blood type, Rh negative Comment: Rhogam 28 wks & PRN Bleeding. Given 02/11/25 (4) ADHD (attention deficit hyperactivity disorder): Status: Acute Orders: Orders POC Urinalysis 2 Dip (Clinic) Today Plan Details Additional Comments: ACOG trimester education reviewed and updated. see problem list details for updated plan management information and see below for orders placed atthis visit. [place] appropriate handout given. Clinical Quality Measures Falls Risk Screening/Assistive Devices Have you fallen in the past year?: No 03/22/25 1107 s CNM> Date _ Elizabeth Castroignfiona Signature: Date (if applicable) CC: ~ [facility]05-20-2025 [facility] [address] [place] [address], [address] [place] [address] OFFICE VISIT Date of Service: 03/09/25 MR#: [id number] Acct: [id number] Name: RISA VELA Rep #: [id number] : 1995 Provider: HARJEET Martin Age/Sex: 30/F Location: [facility] Status: Signed Intake Vital Signs 02/11/25 10:10 02/25/25 13:05 03/09/25 09:44 03/09/25 09:45 Height 5 ft 7 in 5 ft 7 in 5 ft 7 in 5 ft 7 in Weight: 159 lb 6 oz BMI 25.0 BP 101/66 Intake Visit Reasons: 32 wk ob Chief Complaint: 32wk ob 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 Is patient in pain?: No Allergies No Known Allergies Allergy (Verified 03/09/25 09:40) Medications ?Medication ?Instructions ?Recorded ?Confirmed ?Type PNV 153-FA 400 mcg-om3 35 mg-dha tab PO 09/22/2403/09 History 25 mg-epa 5 mg-fish oil chew tablet ondansetron HCl 4 mg tablet 4 mg PO Q4H #60 tabs 12/0203/09/25 Rx Last Menstrual Period: 07/29/24 PFSH PFSH Medical History Vaginal delivery Depression Surgical History H/O arthroscopic knee surgery [place]son teeth extracted Family History Grandfather Heart disease Paternal Cancer Paternal- skin cancer Social History adopted: No household members: spouse and children number of children: 2 current occupational status: employed 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 current occupational exposures/hazards: No pets and animals: Yes pets and animals: dog(s) history of recent travel: Yes ([place], [place], [place], [place], [place], [place]) out of state: Yes out of country: No Smoking Status: Never smoker alcohol intake: current alcohol intake frequency: holidays/special occasions only details: Not while substance use type: does not use well-balanced diet: daily or most days caffeine: No eating out: rarely or never during the past year weight has: remained stable what type of physical activity do you participate in: running and other details: crossfit frequency: 5-6 times per week duration: 45-60 minutes/day romie/adventist: Christianity seatbelt use: always do you feel safe at home: Yes additional social history: Ismael Rodriguez History 3 Elective abortions Hx Para 2 Spontaneous abortions Hx # Term Pregnancies Ectopic pregnancies Hx # Pregnancies Multiple births # of living children 2 Past Pregnancies Del. Date Name GA/Weeks Outcome Route Bth Weight Gen Labor Lgth Anesthesia Del Locatn Provider FOB 09/16/19 Angelo 37 live - full term 7#2oz Male 16 hr epidur al [facility] Dr. Nadiya Jimenez 08/09/21 Elijah 39 live - full term 7#12oz Male 3 Hrs none [facility] Dr. Kari Jimenez Delivery Date: 09/16/19 Last Updated by: Maru Kingsley SROM HPI 32 wk ob Details: RISA VELA is a 30 year old who presents for routine OB visit. OB Visit ROXANA Calculator Estimated Delivery Date Method Current WG Current Estimate 05/05/25 LMP (Certain) 31w 6d Other Estimates 05/07/25 Ultrasound #1 31w 4d Expected Delivery Route/Plan Labor Preferences- CB/BF classes: no labor support person: Tony labor intervention preferences: [] pain management options preferred: limited cut cord/dad catch: cord : yes PP control planned: discussed discussed possible routes of delivery and associated risks: [] special requests: [] Specific Issue/Plans Covid status: [] Flu vaccine: [] Tdap vaccine: given Rhogam: given 02/11/25 LARC form signed: yes Problem list reviewed and updated with the most current plan of care details and appropriate ordersplaced. Relevant counseling for the gestational age provided. Continue routine care and follow up unless otherwise noted in visit notes/problem list details Initial Weight: Not Recorded Date -?-?-?-?-?-?-?-?-?-?-?-?- EGA Weight BP Urine Prot -?-?-?-?-?-?-?-?-?-?-?-?- Glucose FHR FuHt Pres Dilation -?-?-?-?-?-?-?-?-?-?-?-?- Effaced St Visit Note 10/02/24 -?-?-?-?-?-?-?-?-?-?-?-?- 9w 2d 143 lb 97/62 -?-?-?-?-?-?-?-?-?-?-?-?- 190 -?-?-?-?-?-?-?-?-?-?-?-?- KW-CRL cons with dates. Declines NIPT 11/06/24 -?-?-?-?-?-?-?-?-?-?-?-?- 14w 2d 145 lb 110/69 Negative -?-?-?-?-?-?-?-?-?-?-?-?- Negative 143 -?-?-?-?-?-?-?--?-?-?-?-?- LC- no vb/crampi ng. declines afp. anatomy ordered. 12/02/24 -?-?-?-?-?-?-?-?-?-?-?-?- 18w 0d 153 lb 4 oz 112/74 Nega tive -?-?-?-?-?-?-?-?-?-?-?--?- Negative 140 -?-?-?-?-?-?-?-?-?-?-?-?- SM- co nausea, a nd some heartburn 12/31/24 -?-?-?-?-?-?-?-?-?-?-?-?- 22w 1d 157 lb 4 oz 94/63 Nega tive -?-?-?-?-?-?-?-?-?-?-?-?- Negative 150 -?-?-?-?-?-?-?-?-?-?-?-?- JV- follow up an atomy was normal. still some nausea at night, overall doing well. 01/28/25 -?-?-?-?-?-?-?-?-?-?-?-?- 26w 1d 158 lb 8 oz 105/67 Nega tive -?-?-?-?-?-?-?-?-?-?-?-?- Negative 144 24.5 -?-?-?-?--?-?-?-?-?-?-?-?- JV- no complaint s today. + fm. planning glucola next visit. 02/11/25 -?-?-?-?-?-?-?-?-?-?-?-?- 28w 1d 161 lb 4 oz 106/64 Nega tive -?-?-?-?-?-?-?-?-?-?-?-?- Negative 146 27 -?-?-?-?-?-?-?-?-?-?-?-?- -No ROOSEVELT, robin. Maria D sahu FM. 28 wk labs, rhogam, tdap, larc 02/25/25 -?-?-?-?-?-?-?-?-?-?-?-?- 30w 1d 161 lb 6 oz 93/56 Nega tive -?-?-?-?-?-?-?-?-?-?-?-?- Negative 153 29 -?-?-?-?-?-?-?-?-?-?-?-?- -No ROOSEVELT, ROBIN. G adelina Fm. Denies concerns 03/09/25 -?-?-?-?-?-?-?-?-?-?-?-?- 31w 6d 159 lb 6 oz 101/66 Nega tive -?-?-?-?-?-?-?-?-?-?-?-?- Negative 155 30 -?-?-?-?-?-?-?-?-?-?--?-?- KW- no vb/lof/ct x. good fm. no concerns today. ACOG First Trimester First Trimester: Desire for , Alcohol, Tobacco Cessation, Illicit/Recreational Drug/Substance Use, Intimate Partner Violence, Barriers to care, Anticipated Course of Care, Use of Any medications, Sexual activity, Exercise, Dental Care, Sauna/Hot tub use, Seat Belt use, Childbirth c lasses/Hospital facilities, Travel, Indications for Ultrasound and Screening for Aneuploidy; Discussed Unstable Housing, Discussed Communication Barriers, Discussed Environmental/Work Hazards and Discussed Toxoplasmosis Precations Second Trimester Second Trimester: Signs and Symptoms of Labor, Selecting a care provider, Reproductive Life Planning & Contreception, Care Planning, Depression/Anxiety and Intimate Partner Violence; Discussed Tobacco Cessation Third Trimester Third Trimester: Pain Management Plans, Labor support person(s), Immediate Larc, Circumcision preference, Signs and Symptoms of Preeclampsia, Feeding, Education, Family Medical Leave or Disability Forms and Depression; Discussed Intimate Partner Violence ROS Const Reports system reviewed and no additional complaints, except as documented Eyes Reports system reviewed and no additional complaints, except as documented ENT Reports system reviewed and no additional complaints, except as documented Card Reports system reviewed and no additional complaints, except as documented Resp Reports system reviewed and no additional complaints, except as documented GI Reports system reviewed and no additional complaints, except as documented, Denies nausea and Denies vomiting Reports system reviewed and no additional complaints, except as documented Musc Reports system reviewed and no additional complaints, except as documented Skin/Breast Reports system reviewed and no additional complaints, except as documented Neuro Yes system reviewed and no additional complaints, except as documented Psych Reports system reviewed and no additional complaints, except as documented Endo Reports system reviewed and no additional complaints, except as documented Jesus/Lymph Reports system reviewed and no additional complaints, except as documented Aller/Immun Reports system reviewed and no additional complaints, except as documented Exam Const General: cooperative, healthy appearing and no acute distress Orientation: alert, awake and oriented x3 Neck Neck: normal visual inspection and full ROM Resp Effort & Inspection: normal respiratory effort, able to speak in complete sentences and symmetric chest movement GI Inspection: normal to inspection Palpation: soft and other Other: gravid Skin General: no rashes or lesions noted Neuro General: patient alert, patient awake and patient oriented x3 Cognition: normal cognition Speech: speech normal Gait: normal gait Motor: muscle tone normal throughout Extrem General: normal to inspection and full ROM Psych Appearance: grossly normal Mental Status: mental status grossly normal Mood: congruent mood Affect: normal affect Speech and Movement: speech and movement normal Attitude: cooperative Thought Process: normal Thought Content: normal Judgment: judgment good Results POC Urinalysis 2 Dip (Clinic) Office Urine Glucose Negative Last Edit by Angle Gamboa on 03/09/25 09:46 Office Urine Protein Negative Last Edit by Angle Gamboa on 03/09/25 09:46 Coding Level of Care Code OB Routine Diagnoses Supervision of high risk in third trimester O09.93 Trimester: third trimester 31 weeks gestation of Z3A.31 Weeks of gestation: 31 weeks Rh negative status during in third trimester O26.893; Z67.91 Trimester: third trimester ADHD (attention deficit hyperactivity disorder) F90.9 Assessment and Plan Assessment and Plan (1) Supervision of high-risk : Status: Acute Qualifiers: Trimester: third trimester Qualified Code(s): O09.93 - Supervision of high risk , unspecified, third trimester Comment: PRR, , ROXANA 05/05/25, PC Elijah Stephens, Tony (2) : Status: Acute Qualifiers: Weeks of gestation: 31 weeks Qualified Code(s): Z3A.31 - 31 weeks gestation of Comment: declined NIPT & Carrier testing, nl anatomy (3) Rh negative status during : Status: Acute Qualifiers: Trimester: third trimester Qualified Code(s): O26.893 - Other specified related conditions, third trimester; Z67.91 - Unspecified blood type, Rh negative Comment: Rhogam 28 wks & PRN Bleeding. Given 02/11/25 (4) ADHD (attention deficit hyperactivity disorder): Status: Acute Orders: Orders POC Urinalysis 2 Dip (Clinic) Today Plan Details Additional Comments: ACOG trimester education reviewed and updated. see problem list details for updated plan management information and see below for orders placed atthis visit. GA appropriate handout given. 03/09/25 0955 s CNM> Date _ Elizabeth Martin CNM Cosigner Signature: Date (if applicable) CC: ~ [facility]04-10-2025 Evaluation note* Diagnosis Onset Date Resolution Status Admit Date ADHD (attention deficit hyperactivity disorder) acute January 282024 12:44pm acute January 28 12:44pm Rh negative status during acute January 28, 2025 12:44pm Supervision of high-risk acute January 28, 2025 12:44pm acute February 11 9:47am Rh negative status during acute February 11, 2025 9:47am Supervision of high-risk acute February 11, 2025 9:47am acute February 25, 2025 12:35pm Rh negative status during acute February 25, 2025 12 :35pm Supervision of high-risk acute February 25, 2025 12 :35pm ADHD (attention deficit hyperactivity disorder) acute February 9:39am acute March 09, 2025 9:39am Rh negative status during acute March 09, 2025 9 :39am Supervision of high-risk acute March 09, 2025 9 :39am ADHD (attention deficit hyperactivity disorder) acute March 10:54am acute March 22, 2025 10:54am Rh negative status during acute March 22, 2025 1 0:54am Supervision of high-risk acute March 22, 2025 1 0:54am ADHD (attention deficit hyperactivity disorder) acute March 3:46pm acute April 08 3:46pm Rh negative status during acute April 08, 2025 3:46pm Supervision of high-risk acute April 08, 2025 3:46pm Uterine size date discrepanc y acute April 08, 2025 3:46pm acute April 15 1:24pm Rh negative status during acute April 15, 2025 1:24pm Supervision of high-risk acute April 15, 2025 1:24pm Uterine size date discrepanc y acute April 15, 2025 1:24pm ADHD (attention deficit hyperactivity disorder) acute April 9:51am acute April 21, 2025 9:51am Rh negative status during acute April 21, 2025 9 :51am Supervision of high-risk acute April 21, 2025 9 :51am Uterine size date discrepanc y acute April 21, 2025 9 :51am ADHD (attention deficit hyperactivity disorder) acute April 10:55am acute April 28, 2025 10:55am Rh negative status during acute April 28, 2025 1 0:55am Supervision of high-risk acute April 28, 2025 1 0:55am Uterine size date discrepanc y acute April 28, 2025 1 0:55am ADHD (attention deficit hyperactivity disorder) acute April 12:05pm acute April 28, 2025 12:05pm Rh negative status during acute April 28, 2025 1 2:05pm Supervision of high-risk acute April 28, 2025 1 2:05pm Uterine size date discrepanc y acute April 28, 2025 1 2:05pm ADHD (attention deficit hyperactivity disorder) acute April 9:47am acute May 05 9:47am Rh negative status during acute May 05, 2025 9:47am Supervision of high-risk acute May 05, 2025 9:47am Uterine size date discrepanc y acute May 05, 2025 9:47am [facility] Work Phone: 1(191) 585-522404-10-2025 Evaluation note* Diagnosis Onset Date Resolution Status Admit Date ADHD (attention deficit hyperactivity disorder) acute January 282024 12:44pm acute January 28 12:44pm Rh negative status during acute January 28, 2025 12:44pm Supervision of high-risk acute January 28, 2025 12:44pm acute February 11 9:47am Rh negative status during acute February 11, 2025 9:47am Supervision of high-risk acute February 11, 2025 9:47am acute February 25, 2025 12:35pm Rh negative status during acute February 25, 2025 12 :35pm Supervision of high-risk acute February 25, 2025 12 :35pm ADHD (attention deficit hyperactivity disorder) acute February 9:39am acute March 09, 2025 9:39am Rh negative status during acute March 09, 2025 9 :39am Supervision of high-risk acute March 09, 2025 9 :39am ADHD (attention deficit hyperactivity disorder) acute March 10:54am acute March 22, 2025 10:54am Rh negative status during acute March 22, 2025 1 0:54am Supervision of high-risk acute March 22, 2025 1 0:54am ADHD (attention deficit hyperactivity disorder) acute March 3:46pm acute April 08 3:46pm Rh negative status during acute April 08, 2025 3:46pm Supervision of high-risk acute April 08, 2025 3:46pm Uterine size date discrepanc y acute April 08, 2025 3:46pm acute April 15 1:24pm Rh negative status during acute April 15, 2025 1:24pm Supervision of high-risk acute April 15, 2025 1:24pm Uterine size date discrepanc y acute April 15, 2025 1:24pm ADHD (attention deficit hyperactivity disorder) acute April 9:51am acute April 21, 2025 9:51am Rh negative status during acute April 21, 2025 9 :51am Supervision of high-risk acute April 21, 2025 9 :51am Uterine size date discrepanc y acute April 21, 2025 9 :51am ADHD (attention deficit hyperactivity disorder) acute April 10:55am acute April 28, 2025 10:55am Rh negative status during acute April 28, 2025 1 0:55am Supervision of high-risk acute April 28, 2025 1 0:55am Uterine size date discrepanc y acute April 28, 2025 1 0:55am ADHD (attention deficit hyperactivity disorder) acute April 12:05pm acute April 28, 2025 12:05pm Rh negative status during acute April 28, 2025 1 2:05pm Supervision of high-risk acute April 28, 2025 1 2:05pm Uterine size date discrepanc y acute April 28, 2025 1 2:05pm ADHD (attention deficit hyperactivity disorder) acute April 9:47am acute May 05 9:47am Rh negative status during acute May 05, 2025 9:47am Supervision of high-risk acute May 05, 2025 9:47am Uterine size date discrepanc y acute May 05, 2025 9:47am ADHD (attention deficit hyperactivity disorder) acute April 7:59am acute May 10 7:59am Rh negative status during acute May 10, 2025 7:59am Supervision of high-risk acute May 10, 2025 7:59am Uterine size date discrepanc y acute May 10, 2025 7:59am [facility] Work Phone: 1(909) 207-971903-13-2025 Evaluation note* Diagnosis Onset Date Resolution Status Admit Date ADHD (attention deficit hyperactivity disorder) acute December 312024 9:37am acute December 31 9:37am Rh negative status during acute December 31, 2024 9:37am Supervision of high-risk acute December 31, 2024 9:37am ADHD (attention deficit hyperactivity disorder) acute January 282024 12:44pm acute January 28 12:44pm Rh negative status during acute January 28, 2025 12:44pm Supervision of high-risk acute January 28, 2025 12:44pm acute February 11 9:47am Rh negative status during acute February 11, 2025 9:47am Supervision of high-risk acute February 11, 2025 9:47am acute February 25, 2025 12:35pm Rh negative status during acute February 25, 2025 12 :35pm Supervision of high-risk acute February 25, 2025 12 :35pm ADHD (attention deficit hyperactivity disorder) acute February 9:39am acute March 09, 2025 9:39am Rh negative status during acute March 09, 2025 9 :39am Supervision of high-risk acute March 09, 2025 9 :39am ADHD (attention deficit hyperactivity disorder) acute March 10:54am acute March 22, 2025 10:54am Rh negative status during acute March 22, 2025 1 0:54am Supervision of high-risk acute March 22, 2025 1 0:54am ADHD (attention deficit hyperactivity disorder) acute March 3:46pm acute April 08 3:46pm Rh negative status during acute April 08, 2025 3:46pm Supervision of high-risk acute April 08, 2025 3:46pm Uterine size date discrepanc y acute April 08, 2025 3:46pm [facility] Work Phone: 1([phone] 294-864503-13-2025 Evaluation note* Diagnosis Onset Date Resolution Status Admit Date ADHD (attention deficit hyperactivity disorder) acute December 312024 9:37am acute December 31 9:37am Rh negative status during acute December 31, 2024 9:37am Supervision of high-risk acute December 31, 2024 9:37am ADHD (attention deficit hyperactivity disorder) acute January 282024 12:44pm acute January 28 12:44pm Rh negative status during acute January 28, 2025 12:44pm Supervision of high-risk acute January 28, 2025 12:44pm acute February 11 9:47am Rh negative status during acute February 11, 2025 9:47am Supervision of high-risk acute February 11, 2025 9:47am acute February 25, 2025 12:35pm Rh negative status during acute February 25, 2025 12 :35pm Supervision of high-risk acute February 25, 2025 12 :35pm ADHD (attention deficit hyperactivity disorder) acute February 9:39am acute March 09, 2025 9:39am Rh negative status during acute March 09, 2025 9 :39am Supervision of high-risk acute March 09, 2025 9 :39am ADHD (attention deficit hyperactivity disorder) acute March 10:54am acute March 22, 2025 10:54am Rh negative status during acute March 22, 2025 1 0:54am Supervision of high-risk acute March 22, 2025 1 0:54am ADHD (attention deficit hyperactivity disorder) acute March 3:46pm acute April 08 3:46pm Rh negative status during acute April 08, 2025 3:46pm Supervision of high-risk acute April 08, 2025 3:46pm Uterine size date discrepanc y acute April 08, 2025 3:46pm ADHD (attention deficit hyperactivity disorder) acute March 1:24pm acute April 15 1:24pm Rh negative status during acute April 15, 2025 1:24pm Supervision of high-risk acute April 15, 2025 1:24pm Uterine size date discrepanc y acute April 15, 2025 1:24pm [email or web address] Work Phone: 1(343) 844-956503-13-2025 Evaluation note* Diagnosis Onset Date Resolution Status Admit Date ADHD (attention deficit hyperactivity disorder) acute December 312024 9:37am acute December 31 9:37am Rh negative status during acute December 31, 2024 9:37am Supervision of high-risk acute December 31, 2024 9:37am ADHD (attention deficit hyperactivity disorder) acute January 282024 12:44pm acute January 28 12:44pm Rh negative status during acute January 28, 2025 12:44pm Supervision of high-risk acute January 28, 2025 12:44pm acute February 11 9:47am Rh negative status during acute February 11, 2025 9:47am Supervision of high-risk acute February 11, 2025 9:47am acute February 25, 2025 12:35pm Rh negative status during acute February 25, 2025 12 :35pm Supervision of high-risk acute February 25, 2025 12 :35pm ADHD (attention deficit hyperactivity disorder) acute February 9:39am acute March 09, 2025 9:39am Rh negative status during acute March 09, 2025 9 :39am Supervision of high-risk acute March 09, 2025 9 :39am ADHD (attention deficit hyperactivity disorder) acute March 10:54am acute March 22, 2025 10:54am Rh negative status during acute March 22, 2025 1 0:54am Supervision of high-risk acute March 22, 2025 1 0:54am ADHD (attention deficit hyperactivity disorder) acute March 3:46pm acute April 08 3:46pm Rh negative status during acute April 08, 2025 3:46pm Supervision of high-risk acute April 08, 2025 3:46pm Uterine size date discrepanc y acute April 08, 2025 3:46pm acute April 15 1:24pm Rh negative status during acute April 15, 2025 1:24pm Supervision of high-risk acute April 15, 2025 1:24pm Uterine size date discrepanc y acute April 15, 2025 1:24pm [facility] Work Phone: 1([phone]) 287-101503-13-2025 Evaluation note* Diagnosis Onset Date Resolution Status Admit Date ADHD (attention deficit hyperactivity disorder) acute December 312024 9:37am acute December 31 9:37am Rh negative status during acute December 31, 2024 9:37am Supervision of high-risk acute December 31, 2024 9:37am ADHD (attention deficit hyperactivity disorder) acute January 282024 12:44pm acute January 28 12:44pm Rh negative status during acute January 28, 2025 12:44pm Supervision of high-risk acute January 28, 2025 12:44pm acute February 11 9:47am Rh negative status during acute February 11, 2025 9:47am Supervision of high-risk acute February 11, 2025 9:47am acute February 25, 2025 12:35pm Rh negative status during acute February 25, 2025 12 :35pm Supervision of high-risk acute February 25, 2025 12 :35pm ADHD (attention deficit hyperactivity disorder) acute February 9:39am acute March 09, 2025 9:39am Rh negative status during acute March 09, 2025 9 :39am Supervision of high-risk acute March 09, 2025 9 :39am ADHD (attention deficit hyperactivity disorder) acute March 10:54am acute March 22, 2025 10:54am Rh negative status during acute March 22, 2025 1 0:54am Supervision of high-risk acute March 22, 2025 1 0:54am ADHD (attention deficit hyperactivity disorder) acute March 3:46pm acute April 08 3:46pm Rh negative status during acute April 08, 2025 3:46pm Supervision of high-risk acute April 08, 2025 3:46pm Uterine size date discrepanc y acute April 08, 2025 3:46pm acute April 15 1:24pm Rh negative status during acute April 15, 2025 1:24pm Supervision of high-risk acute April 15, 2025 1:24pm Uterine size date discrepanc y acute April 15, 2025 1:24pm ADHD (attention deficit hyperactivity disorder) acute April 9:51am acute April 21, 2025 9:51am Rh negative status during acute April 21, 2025 9 :51am Supervision of high-risk acute April 21, 2025 9 :51am Uterine size date discrepanc y acute April 21, 2025 9 :51am [facility] Work Phone: 1([phone]) 120-458003-13-2025 Evaluation note* Diagnosis Onset Date Resolution Status Admit Date ADHD (attention deficit hyperactivity disorder) acute December 312024 9:37am acute December 31 9:37am Rh negative status during acute December 31, 2024 9:37am Supervision of high-risk acute December 31, 2024 9:37am ADHD (attention deficit hyperactivity disorder) acute January 282024 12:44pm acute January 28 12:44pm Rh negative status during acute January 28, 2025 12:44pm Supervision of high-risk acute January 28, 2025 12:44pm acute February 11 9:47am Rh negative status during acute February 11, 2025 9:47am Supervision of high-risk acute February 11, 2025 9:47am acute February 25, 2025 12:35pm Rh negative status during acute February 25, 2025 12 :35pm Supervision of high-risk acute February 25, 2025 12 :35pm ADHD (attention deficit hyperactivity disorder) acute February 9:39am acute March 09, 2025 9:39am Rh negative status during acute March 09, 2025 9 :39am Supervision of high-risk acute March 09, 2025 9 :39am ADHD (attention deficit hyperactivity disorder) acute March 10:54am acute March 22, 2025 10:54am Rh negative status during acute March 22, 2025 1 0:54am Supervision of high-risk acute March 22, 2025 1 0:54am ADHD (attention deficit hyperactivity disorder) acute March 3:46pm acute April 08 3:46pm Rh negative status during acute April 08, 2025 3:46pm Supervision of high-risk acute April 08, 2025 3:46pm Uterine size date discrepanc y acute April 08, 2025 3:46pm acute April 15 1:24pm Rh negative status during acute April 15, 2025 1:24pm Supervision of high-risk acute April 15, 2025 1:24pm Uterine size date discrepanc y acute April 15, 2025 1:24pm ADHD (attention deficit hyperactivity disorder) acute April 9:51am acute April 21, 2025 9:51am Rh negative status during acute April 21, 2025 9 :51am Supervision of high-risk acute April 21, 2025 9 :51am Uterine size date discrepanc y acute April 21, 2025 9 :51am ADHD (attention deficit hyperactivity disorder) acute April 10:55am acute April 28, 2025 10:55am Rh negative status during acute April 28, 2025 1 0:55am Supervision of high-risk acute April 28, 2025 1 0:55am Uterine size date discrepanc y acute April 28, 2025 1 0:55am [facility] Work Phone: [phone]) [phone] Evaluation note* Diagnosis Onset Date Resolution Status Admit Date ADHD (attention deficit hyperactivity disorder) acute December 02, 2024 2:54pm acute December 02, 2024 2:54pm Rh negative status during acute December 02, 2 025 2:54pm Supervision of high-risk acute December 02, 2 025 2:54pm ADHD (attention deficit hyperactivity disorder) acute December 312024 9:37am acute December 31 9:37am Rh negative status during acute December 31, 2024 9:37am Supervision of high-risk acute December 31, 2024 9:37am ADHD (attention deficit hyperactivity disorder) acute January 282024 12:44pm acute January 28 12:44pm Rh negative status during acute January 28, 2025 12:44pm Supervision of high-risk acute January 28, 2025 12:44pm acute February 11 9:47am Rh negative status during acute February 11, 2025 9:47am Supervision of high-risk acute February 11, 2025 9:47am acute February 25, 2025 12:35pm Rh negative status during acute February 25, 2025 12 :35pm Supervision of high-risk acute February 25, 2025 12 :35pm ADHD (attention deficit hyperactivity disorder) acute February 9:39am acute March 09, 2025 9:39am Rh negative status during acute March 09, 2025 9 :39am Supervision of high-risk acute March 09, 2025 9 :39am [facility] Work Phone: [phone] 508-832702-12-2025 Evaluation note* Diagnosis Onset Date Resolution Status Admit Date ADHD (attention deficit hyperactivity disorder) acute December 02, 2024 2:54pm acute December 02, 2024 2:54pm Rh negative status during acute December 02, 2 025 2:54pm Supervision of high-risk acute December 02, 2 025 2:54pm ADHD (attention deficit hyperactivity disorder) acute December 312024 9:37am acute December 31 9:37am Rh negative status during acute December 31, 2024 9:37am Supervision of high-risk acute December 31, 2024 9:37am ADHD (attention deficit hyperactivity disorder) acute January 282024 12:44pm acute January 28 12:44pm Rh negative status during acute January 28, 2025 12:44pm Supervision of high-risk acute January 28, 2025 12:44pm acute February 11 9:47am Rh negative status during acute February 11, 2025 9:47am Supervision of high-risk acute February 11, 2025 9:47am acute February 25, 2025 12:35pm Rh negative status during acute February 25, 2025 12 :35pm Supervision of high-risk acute February 25, 2025 12 :35pm ADHD (attention deficit hyperactivity disorder) acute February 9:39am acute March 09, 2025 9:39am Rh negative status during acute March 09, 2025 9 :39am Supervision of high-risk acute March 09, 2025 9 :39am ADHD (attention deficit hyperactivity disorder) acute March 10:54am acute March 22, 2025 10:54am Rh negative status during acute March 22, 2025 1 0:54am Supervision of high-risk acute March 22, 2025 1 0:54am [facility] Work Phone: [phone]) 126-547306-26-2024 NoteHNO ID: [id number] Author: ANNELISE GARLAND APRN.CNM Service: ? Author Type: Forestry Technician Type: Progress Notes Filed: 04/15/2024 15:17 Note Text: Swedger offered: Patient declines. Risa presents for removal of IUD due to acne and long periods of spotting. She and are talking about a future UNIVERSAL PROTOCOL / SAFETY CHECKLIST Procedure to be Performed: IUD Removal Sign In: A Moment of CARE was completed. Personnel directly involved with the procedure wore the appropriate PPE (Personal Protective Equipment). Patient/Surrogate Stated/Verified: PATIENT VERIFIED(optional for EMERGENT procedures): Patient name, Date of , Relevant allergies, and The intended procedure Time Out Communication: Intended patient and procedure match the source documents. Consent documented and matches the intended procedure. Sign Out: SIGN OUT (optional for EMERGENT procedures): No specimen collected. PROCEDURE: Speculum placed in vagina, IUD string visualized and grasped with ring forceps. ASSESSMENT/PLAN: IUD removed without difficulty, intact, and patient tolerated procedure well. Contraception plans: oral contraceptives Reviewed pre-conception guidelines including folic acid supplementation, optimal timing of intercourse, avoidance of smoking, alcohol, exposure to environmental chemicals and need for evaluation if not within 12 months. Annelise Garland APRN.CNUniversity [facility]als [facility]06-26-2024 History of Present illness Narrative* Annelise Garland APRN.CNM - 04/15/2024 2:53 PM EDT Swedger offered: Patient declines. iRsa presents for removal of IUD due to acne and long periods of spotting. She and are talking about a future UNIVERSAL PROTOCOL / SAFETY CHECKLIST Procedure to be Performed: IUD Removal Sign In: A Moment of CARE was completed. Personnel directly involved with the procedure wore the appropriate PPE (Personal Protective Equipment). Patient/Surrogate Stated/Verified: PATIENT VERIFIED(optional for EMERGENT procedures): Patient name, Date of , Relevant allergies, and The intended procedure Time Out Communication: Intended patient and procedure match the source documents. Consent documented and matches the intended procedure. Sign Out: SIGN OUT (optional for EMERGENT procedures): No specimen collected. PROCEDURE: Speculum placed in vagina, IUD string visualized and grasped with ring forceps. ASSESSMENT/PLAN: IUD removed without difficulty, intact, and patient tolerated procedure well. Contraception plans: oral contraceptives Reviewed pre-conception guidelines including folic acid supplementation, optimal timing of intercourse, avoidance of smoking, alcohol, exposure to environmental chemicals and need for evaluation if not within 12 months. Annelise Garland APRN.CNM documented in this [facility]24 NoteHNO ID: [id number] Author: ANNELISE GARLAND APRN.CNM Service: ? Author Type: Forestry Technician Type: Progress Notes Filed: 03/26/2024 12:52 Note Text: Swedger offered: Patient declines. Risa is a 29 year old No obstetric history on file. who presents for an annual gynecologic exam with complaints, irregular bleeding and facial acne . She would like IUD removed. She is a transfer patient from [facility] and would like to establish care. Menses: cycles every 28-30 days and 9 days of flow. 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 No bloating, early satiety, indigestion, or increased flatulence. Bladder: No dysuria, gross hematuria, urinary frequency, urinary urgency, or incontinence. Breast: No breast lumps, nipple d/c, overlying skin changes, redness or skin retraction. Allergies and current medication updated:Yes EXAM: BP 92/66 Ht 5' 6.693 (1.69m) Wt 145 lb (65.8kg) LMP 03/12/2024 BMI 22.92 kg/(m2). GENERAL: pleasant, female in no apparent distress HEENT: Normocephalic and atraumatic NECK: Supple and full range of motion DERMATOLOGY: Normal and without lesions BREAST: deferred CHEST: Normal inspiratory effort ABDOMEN: soft, non-tender, and no masses PELVIC: external genitalia normal, normal Bartholin's glands, urethra, [place]'s glands, no vulvar lesions, no cervical lesions, good vaginal support, physiologic discharge present, normal appearing perineal body and perianal region, IUD strings visible BIMANUAL: uterus normal size, shape and consistency, no adnexal masses, non-tender, and no cervical motion tenderness RECTOVAGINAL: deferred. NEURO: alert and oriented x3,exam grossly non-focal EXTREMITIES: normal ASSESSMENT/PLAN: 1) Health maintenance: Pap/HPV up to date. 2) Contraception: IUD. Desires removal of IUD- planning on using condoms/ possibly attempting Start taking vitamins 3) STD screening: Declined STD check. 4) Follow up for removal of IUD LITZY Bo APRN.[facility] 03-26-2024 History of Present illness Narrative* Annelise Garland APRN.CNM - 03/26/2024 10:03 AM EDT Swedger offered: Patient declines. Risa is a 29 year old No obstetric history on file. who presents for an annual gynecologic exam with complaints, irregular bleeding and facial acne . She would like IUD removed. She is a transfer patient from [facility] and would like to establish care. Menses: cycles every 28-30 days and 9 days of flow. 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 No bloating, early satiety, indigestion, or increased flatulence. Bladder: No dysuria, gross hematuria, urinary frequency, urinary urgency, or incontinence. Breast: No breast lumps, nipple d/c, overlying skin changes, redness or skin retraction. Allergies and current medication updated:Yes EXAM: BP 92/66 Ht 5' 6.693 (1.69m) Wt 145 lb (65.8kg) LMP 03/12/2024 BMI 22.92 kg/(m^2). GENERAL: pleasant, female in no apparent distress HEENT: Normocephalic and atraumatic NECK: Supple and full range of motion DERMATOLOGY: Normal and without lesions BREAST: deferred CHEST: Normal inspiratory effort ABDOMEN: soft, non-tender, and no masses PELVIC: external genitalia normal, normal Bartholin's glands, urethra, Coalmont's glands, no vulvar lesions, no cervical lesions, good vaginal support, physiologic discharge present, normal appearing perineal body and perianal region, IUD strings visible BIMANUAL: uterus normal size, shape and consistency, no adnexal masses, non- tender, and no cervicalmotion tenderness RECTOVAGINAL: deferred. NEURO: alert and oriented x3,exam grossly non-focal EXTREMITIES: normal ASSESSMENT/PLAN: 1) Health maintenance: Pap/HPV up to date. 2) Contraception: IUD. Desires removal of IUD- planning on using condoms/ possibly attempting Start taking vitamins 3) STD screening: Declined STD check. 4) Follow up for removal of IUD LITZY Bo APRN.CNM documented in this encounterPrem[facility] CenterEvaluation noteNo assessment information availableWTrinity Health System [facility] Work Phone: Evaluation note* Diagnosis Encounter for gynecological examination (general) (routine) without abnormal findings- Primary Encounter for IUD removal Encounter for removal of intrauterine contraceptive device documented in this encounter [facility] note* Diagnosis Encounter for IUD removal- Primary Encounter for removal of intrauterine contraceptive device Other acne Breakthrough bleeding associated with intrauterine device (IUD) documented in this encounter [facility] CenterProgress note Author Elizabeth Martin [facility] Note Date/Time March 09, 2025 9:55a m [facility] [address] [place] [address], [address] [place] [address] OFFICE VISIT Date of Service: 03/09/25 MR#: [id number] Acct: [id number] Name: RISA VELA Rep #: [id number] : 1995 Provider: HARJEET Martin Age/Sex: 30/F Location: [facility] Status: Signed Intake Vital Signs 02/11/25 10:10 02/25/25 13:05 03/09/25 09:44 03/09/25 09:45 Height 5 ft 7 in 5 ft 7 in 5 ft 7 in 5 ft 7 in Weight: 159 lb 6 oz BMI 25.0 BP 101/66 Intake Visit Reasons: 32 wk ob Chief Complaint: 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 ob 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 Is patient in pain?: No Allergies No Known Allergies Allergy (Verified 03/09/25 09:40) Medications ?Medication ?Instructions ?Recorded ?Confirmed ?Type PNV 153-FA 400 mcg-om3 35 mg-dha tab PO 09/22/2403/09 History 25 mg-epa 5 mg-fish oil chew tablet ondansetron HCl 4 mg tablet 4 mg PO Q4H #60 tabs 12/0203/09/25 Rx Last Menstrual Period: 07/29/24 PFSH PFSH Medical History Vaginal delivery Depression Surgical History H/O arthroscopic knee surgery Batson teeth extracted Family History Grandfather Heart disease Paternal Cancer Paternal- skin cancer Social History adopted: No household members: spouse and children number of children: 2 current occupational status: employed 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 current occupational exposures/hazards: No pets and animals: Yes pets and animals: dog(s) history of recent travel: Yes ([place], [place], [place], , [place], [place]) out of state: Yes out of country: No Smoking Status: Never smoker alcohol intake: current alcohol intake frequency: holidays/special occasions only details: Not while substance use type: does not use well-balanced diet: daily or most days caffeine: No eating out: rarely or never during the past year weight has: remained stable what type of physical activity do you participate in: running and other details: crossfit frequency: 5-6 times per week duration: 45-60 minutes/day romie/adventist: Christianity seatbelt use: always do you feel safe at home: Yes additional social history: Ismael Rodriguez History 3 Elective abortions Hx Para 2 Spontaneous abortions Hx # Term Pregnancies Ectopic pregnancies Hx # Pregnancies Multiple births # of living children 2 Past Pregnancies Del. Date Name GA/Weeks Outcome Route Bth Weight Gen Labor Lgth Anesthesia Del Locatn Provider FOB 09/16/19 Angelo 37 live - full term 7#2oz Male 16 hr epidur al [facility] Dr. Nadiya Jimenez 08/09/21 Elijah 39 live - full term 7#12oz Male 3 Hrs none [facility] Dr. Kari Jimenez Delivery Date: 09/16/19 Last Updated by: Maru Kingsley SROM HPI 32 wk ob Details: RISA VELA is a 30 year old who presents for routine OB visit. OB Visit ROXANA Calculator Estimated Delivery Date Method Current WG Current Estimate 05/05/25 LMP (Certain) 31w 6d Other Estimates 05/07/25 Ultrasound #1 31w 4d Expected Delivery Route/Plan Labor Preferences- CB/BF classes: no labor support person: Tony labor intervention preferences: [] pain management options preferred: limited cut cord/dad catch: cord : yes PP control planned: discussed discussed possible routes of delivery and associated risks: [] special requests: [] Specific Issue/Plans Covid status: [] Flu vaccine: [] Tdap vaccine: given Rhogam: given 02/11/25 LARC form signed: yes Problem list reviewed and updated with the most current plan of care details and appropriate orders placed. Relevant counseling for the gestational age provided. Continue routine care and follow up unless otherwise noted in visit notes/problem list details Initial Weight: Not Recorded Date -?-?-?-?-?-?-?-?-?-?-?-?- EGA Weight BP Urine Prot -?-?-?-?-?-?-?-?-?-?-?-?- Glucose FHR FuHt Pres Dilation -?-?-?-?-?-?-?-?-?-?-?-?- Effaced St Visit Note 10/02/24 -?-?-?-?-?-?-?-?-?-?-?-?- 9w 2d 143 lb 97/62 -?-?-?-?-?-?-?-?-?-?-?-?- 190 -?-?-?-?-?-?-?-?-?-?-?-?- KW-CRL cons with dates. Declines NIPT 11/06/24 -?-?-?-?-?-?-?-?-?-?-?-?- 14w 2d 145 lb 110/69 Negative -?-?-?-?-?-?-?-?-?-?-?-?- Negative 143 -?-?-?-?-?-?-?--?-?-?-?-?- LC- no vb/juanita lockwood. declines afp. anatomy ordered. 12/02/24 -?-?-?-?-?-?-?-?-?-?-?-?- 18w 0d 153 lb 4 oz 112/74 Nega tive -?-?-?-?-?-?-?-?-?-?-?--?- Negative 140 -?-?-?-?-?-?-?-?-?-?-?-?- SM- co nausea, a nd some heartburn 12/31/24 -?-?-?-?-?-?-?-?-?-?-?-?- 22w 1d 157 lb 4 oz 94/63 Nega tive -?-?-?-?-?-?-?-?-?-?-?-?- Negative 150 -?-?-?-?-?-?-?-?-?-?-?-?- JV- follow up an atomy was normal. still some nausea at night, overall doing well. 01/28/25 -?-?-?-?-?-?-?-?-?-?-?-?- 26w 1d 158 lb 8 oz 105/67 Nega tive -?-?-?-?-?-?-?-?-?-?-?-?- Negative 144 24.5 -?-?-?-?--?-?-?-?-?-?-?-?- JV- no complaint s today. + fm. planning glucola next visit. 02/11/25 -?-?-?-?-?-?-?-?-?-?-?-?- 28w 1d 161 lb 4 oz 106/64 Nega tive -?-?-?-?-?-?-?-?-?-?-?-?- Negative 146 27 -?-?-?-?-?-?-?-?-?-?-?-?- -No VB, lof. G ood FM. 28 wk labs, rhogam, tdap, larc 02/25/25 -?-?-?-?-?-?-?-?-?-?-?-?- 30w 1d 161 lb 6 oz 93/56 Nega tive -?-?-?-?-?-?-?-?-?-?-?-?- Negative 153 29 -?-?-?-?-?-?-?-?-?-?-?-?- MH-No VB, LOF. G ood Fm. Denies concerns 03/09/25 -?-?-?-?-?-?-?-?-?-?-?-?- 31w 6d 159 lb 6 oz 101/66 Nega tive -?-?-?-?-?-?-?-?-?-?-?-?- Negative 155 30 -?-?-?-?-?-?-?-?-?-?--?-?- KW- no vb/lof/ct x. good fm. no concerns today. ACOG First Trimester First Trimester: Desire for , Alcohol, Tobacco Cessation, Illicit/Recreational Drug/Substance Use, Intimate Partner Violence, Barriers to care, Anticipated Course of Care, Use of Any medications, Sexual activity, Exercise, Dental Care, Sauna/Hot tub use, Seat Belt use, Childbirth classes/Hospital facilities, Travel, Indications for Ultrasound and Screening for Aneuploidy; Discussed Unstable Housing, Discussed Communication Barriers, Discussed Environmental/Work Hazards and Discussed Toxoplasmosis Precations Second Trimester Second Trimester: Signs and Symptoms of Labor, Selecting a care provider, Reproductive Life Planning & Contreception, Care Planning, Depression/Anxiety and Intimate Partner Violence; Discussed Tobacco Cessation Third Trimester Third Trimester: Pain Management Plans, Labor support person(s), Immediate Larc, Circumcision preference, Signs and Symptoms of Preeclampsia, Feeding, Education, Family Medical Leave or Disability Forms and Depression; Discussed Intimate Partner Violence ROS Const Reports system reviewed and no additional complaints, except as documented Eyes Reports system reviewed and no additional complaints, except as documented ENT Reports system reviewed and no additional complaints, except as documented Card Reports system reviewed and no additional complaints, except as documented Resp Reports system reviewed and no additional complaints, except as documented GI Reports system reviewed and no additional complaints, except as documented, Denies nausea and Denies vomiting Reports system reviewed and no additional complaints, except as documented Musc Reports system reviewed and no additional complaints, except as documented Skin/Breast Reports system reviewed and no additional complaints, except as documented Neuro Yes system reviewed and no additional complaints, except as documented Psych Reports system reviewed and no additional complaints, except as documented Endo Reports system reviewed and no additional complaints, except as documented Jesus/Lymph Reports system reviewed and no additional complaints, except as documented Aller/Immun Reports system reviewed and no additional complaints, except as documented Exam Const General: cooperative, healthy appearing and no acute distress Orientation: alert, awake and oriented x3 Neck Neck: normal visual inspection and full ROM Resp Effort & Inspection: normal respiratory effort, able to speak in complete sentences and symmetric chest movement GI Inspection: normal to inspection Palpation: soft and other Other: gravid Skin General: no rashes or lesions noted Neuro General: patient alert, patient awake and patient oriented x3 Cognition: normal cognition Speech: speech normal Gait: normal gait Motor: muscle tone normal throughout Extrem General: normal to inspection and full ROM Psych Appearance: grossly normal Mental Status: mental status grossly normal Mood: congruent mood Affect: normal affect Speech and Movement: speech and movement normal Attitude: cooperative Thought Process: normal Thought Content: normal Judgment: judgment good Results POC Urinalysis 2 Dip (Clinic) Office Urine Glucose Negative Last Edit by Angle Gamboa on 03/09/25 09:46 Office Urine Protein Negative Last Edit by Angle Gamboa on 03/09/25 09:46 Coding Level of Care Code OB Routine Diagnoses Supervision of high risk in third trimester O Trimester: third trimester 31 weeks gestation of Z3A.31 Weeks of gestation: 31 weeks Rh negative status during in third trimester O26.893; Z67.91 Trimester: third trimester ADHD (attention deficit hyperactivity disorder) F90.9 Assessment and Plan Assessment and Plan (1) Supervision of high-risk : Status: Acute Qualifiers: Trimester: third trimester Qualified Code(s): O09.93 - Supervision of high risk , unspecified, third trimester Comment: PRR, , ROXANA 05/05/25, PC Elijah Stephens, Tony (2) : Status: Acute Qualifiers: Weeks of gestation: 31 weeks Qualified Code(s): Z3A.31 - 31 weeks gestation of Comment: declined NIPT & Carrier testing, nl anatomy (3) Rh negative status during : Status: Acute Qualifiers: Trimester: third trimester Qualified Code(s): O26.893 - Other specified related conditions, third trimester; Z67.91 - Unspecified blood type, Rh negative Comment: Rhogam 28 wks & PRN Bleeding. Given 02/11/25 (4) ADHD (attention deficit hyperactivity disorder): Status: Acute Orders: Orders POC Urinalysis 2 Dip (Clinic) Today Plan Details Additional Comments: ACOG trimester education reviewed and updated. see problem list details for updated plan management information and see below for orders placed at this visit. [place] appropriate handout given. 03/09/25 0955 <Electronically signed by Elizabeth stout CNM> Date _ Elizabeth Martin CNM Cosigner Signature: Date (if applicable) CC: ~ [facility] Work Phone: Progress note Author Elizabeth Martin [facility] Note Date/Time March 22, 2025 11:07 am [facility] [address], [address] [place] [address] OFFICE VISIT Date of Service: 03/22/25 MR#: [id number] Acct: [id number] Name: DANERISAJODY BROCK Rep #: [id number] : 1995 Provider: HARJEET Martin Age/Sex: 30/F Location: [facility] Status: Signed Intake Vital Signs 02/11/25 10:10 03/09/25 09:45 03/22/25 10:57 Height 5 ft 7 in 5 ft 7 in 5 ft 7 in Weight: 161 lb 2 oz BMI 25.2 BP 112/68 Intake Visit Reasons: 34 wk ob Chief Complaint: 34wk OB 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 Is patient in pain?: No Allergies No Known Allergies Allergy (Verified 03/22/25 10:55) Medications ?Medication ?Instructions ?Recorded ?Confirmed ?Type PNV 153-FA 400 mcg-om3 35 mg-dha tab PO 09/22/2403/22 History 25 mg-epa 5 mg-fish oil chew tablet ondansetron HCl 4 mg tablet 4 mg PO Q4H #60 tabs 12/0203/22/25 Rx Last Menstrual Period: 07/29/24 : Yes Have you fallen in the past year?: No PFSH PFSH Medical History Vaginal delivery Depression Surgical History H/O arthroscopic knee surgery Batson teeth extracted Family History Grandfather Heart disease Paternal Cancer Paternal- skin cancer Social History adopted: No household members: spouse and children number of children: 2 current occupational status: employed 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 current occupational exposures/hazards: No pets and animals: Yes pets and animals: dog(s) history of recent travel: Yes ([place], [place], [place], , [place], [place]) out of state: Yes out of country: No Smoking Status: Never smoker alcohol intake: current alcohol intake frequency: holidays/special occasions only details: Not while substance use type: does not use well-balanced diet: daily or most days caffeine: No eating out: rarely or never during the past year weight has: remained stable what type of physical activity do you participate in: running and other details: crossfit frequency: 5-6 times per week duration: 45-60 minutes/day romie/adventist: Christianity seatbelt use: always do you feel safe at home: Yes additional social history: Ismael Rodriguez History 3 Elective abortions Hx Para 2 Spontaneous abortions Hx # Term Pregnancies Ectopic pregnancies Hx # Pregnancies Multiple births # of living children 2 Past Pregnancies Del. Date Name GA/Weeks Outcome Route Bth Weight Infant Gen Labor Lgth Anesthesia Del Locatn Provider FOB 09/16/19 Angelo 37 live - full term 7#2oz Male 16 hr epidur al [facility] Dr. Nadiya Jimenez 08/09/21 Elijah 39 live - full term 7#12oz Male 3 Hrs none [facility] Dr. Kari Jimenez Delivery Date: 09/16/19 Last Updated by: Maru Kingsley SROM HPI 34 wk ob Details: RISA VELA is a 30 year old who presents for routine OB visit. OB Visit ROXANA Calculator Estimated Delivery Date Method Current WG Current Estimate 05/05/25 LMP (Certain) 33w 5d Other Estimates 05/07/25 Ultrasound #1 33w 3d Expected Delivery Route/Plan Labor Preferences- CB/BF classes: no labor support person: Tony labor intervention preferences: [] pain management options preferred: limited cut cord/dad catch: cord : yes PP control planned: discussed discussed possible routes of delivery and associated risks: [] special requests: [] Specific Issue/Plans Covid status: [] Flu vaccine: [] Tdap vaccine: given Rhogam: given 02/11/25 LARC form signed: yes Problem list reviewed and updated with the most current plan of care details and appropriate orders placed. Relevant counseling for the gestational age provided. Continue routine care and follow up unless otherwise noted in visit notes/problem list details Initial Weight: Not Recorded Date -?-?-?-?-?-?-?-?-?-?-?-?- EGA Weight BP Urine Prot -?-?-?-?-?-?-?-?-?-?-?-?- Glucose FHR FuHt Pres Dilation -?-?-?-?-?-?-?-?-?-?-?-?- Effaced St Visit Note 10/02/24 -?-?-?-?-?-?-?-?-?-?-?-?- 9w 2d 143 lb 97/62 -?-?-?-?-?-?-?-?-?-?-?-?- 190 -?-?-?-?-?-?-?-?-?-?-?-?- KW-CRL cons with dates. Declines NIPT 11/06/24 -?-?-?-?-?-?-?-?-?-?-?-?- 14w 2d 145 lb 110/69 Negative -?-?-?-?-?-?-?-?-?-?-?-?- Negative 143 -?-?-?-?-?-?-?-?-?-?-?-?- LC- no vb/juanita lockwood. declines afp. anatomy ordered. 12/02/24 -?-?-?-?-?-?-?-?-?-?-?-?- 18w 0d 153 lb 4 oz 112/74 Nega tive -?-?-?-?-?-?-?-?-?-?-?-?- Negative 140 -?-?-?-?-?-?-?-?-?-?-?-?- SM- co nausea, a nd some heartburn 12/31/24 -?-?-?-?-?-?-?-?-?-?-?-?- 22w 1d 157 lb 4 oz 94/63 Nega tive -?-?-?-?-?-?-?-?-?-?-?-?- Negative 150 -?-?-?-?-?-?-?-?-?-?-?-?- JV- follow up an atomy was normal. still some nausea at night, overall doing well. 01/28/25 -?-?-?-?-?-?-?-?-?-?-?-?- 26w 1d 158 lb 8 oz 105/67 Nega tive -?-?-?-?-?-?-?-?-?-?-?-?- Negative 144 24.5 -?-?-?-?-?-?-?-?-?-?-?-?- JV- no complaint s today. + fm. planning glucola next visit. 02/11/25 -?-?-?-?-?-?-?-?-?-?-?-?- 28w 1d 161 lb 4 oz 106/64 Nega tive -?-?-?-?-?-?-?-?-?-?-?-?- Negative 146 27 -?-?-?-?-?-?-?-?-?-?-?-?- -No VB, lof. G ood FM. 28 wk labs, rhogam, tdap, larc 02/25/25 -?-?-?-?-?-?-?-?-?-?-?-?- 30w 1d 161 lb 6 oz 93/56 Nega tive -?-?-?-?-?-?-?-?-?-?-?-?- Negative 153 29 -?-?--?-?-?-?-?-?-?-?-?-?- MH-No VB, LOF. G oomid Fm. Denies concerns 03/09/25 -?-?-?-?-?-?-?-?-?-?-?-?- 31w 6d 159 lb 6 oz 101/66 Nega tive -?-?-?-?-?-?-?-?-?-?-?-?- Negative 155 30 -?-?-?-?-?-?-?-?-?-?-?-?- KW- no vb/lof/ct x. good fm. no concerns today. 03/22/25 -?-?-?-?-?-?-?-?-?-?-?-?- 33w 5d 161 lb 2 oz 112/68 Nega tive -?-?-?-?-?-?-?-?-?-?-?-?- Negative 140 32 -?-?-?-?-?-?-?-?-?-?-?-?- KW- no vb/lof/ct x. karrie fm. denies concerns ACOG First Trimester First Trimester: Desire for , Alcohol, Tobacco Cessation, Illicit/Recreational Drug/Substance Use, Intimate Partner Violence, Barriers to care, Anticipated Course of Care, Use of Any medications, Sexual activity, Exercise, Dental Care, Sauna/Hot tub use, Seat Belt use, Childbirth classes/Hospital facilities, , Travel, Indications for Ultrasound and Screening for Aneuploidy; Discussed Unstable Housing, Discussed Communication Barriers, Discussed Environmental/Work Hazards and Discussed Toxoplasmosis Precations Second Trimester Second Trimester: Signs and Symptoms of Labor, Selecting a care provider, Reproductive Life Planning & Contreception, Care Planning, Depression/Anxiety and Intimate Partner Violence; Discussed Tobacco Cessation Third Trimester Third Trimester: Pain Management Plans, Labor support person(s), Immediate Larc, Circumcision preference, Signs and Symptoms of Preeclampsia, Feeding Yes , [place] Education, Family Medical Leave or Disability Forms and Depression; Discussed Intimate Partner Violence ROS Const Reports system reviewed and no additional complaints, except as documented Eyes Reports system reviewed and no additional complaints, except as documented ENT Reports system reviewed and no additional complaints, except as documented Card Reports system reviewed and no additional complaints, except as documented Resp Reports system reviewed and no additional complaints, except as documented GI Reports system reviewed and no additional complaints, except as documented, Denies nausea and Denies vomiting Reports system reviewed and no additional complaints, except as documented Musc Reports system reviewed and no additional complaints, except as documented Skin/Breast Reports system reviewed and no additional complaints, except as documented Neuro Yes system reviewed and no additional complaints, except as documented Psych Reports system reviewed and no additional complaints, except as documented Endo Reports system reviewed and no additional complaints, except as documented Jesus/Lymph Reports system reviewed and no additional complaints, except as documented Aller/Immun Reports system reviewed and no additional complaints, except as documented Exam Const General: cooperative, healthy appearing and no acute distress Orientation: alert, awake and oriented x3 Neck Neck: normal visual inspection and full ROM Resp Effort & Inspection: normal respiratory effort, able to speak in complete sentences and symmetric chest movement GI Inspection: normal to inspection Palpation: soft and other Other: gravid Skin General: no rashes or lesions noted Neuro General: patient alert, patient awake and patient oriented x3 Cognition: normal cognition Speech: speech normal Gait: normal gait Motor: muscle tone normal throughout Extrem General: normal to inspection and full ROM Psych Appearance: grossly normal Mental Status: mental status grossly normal Mood: congruent mood Affect: normal affect Speech and Movement: speech and movement normal Attitude: cooperative Thought Process: normal Thought Content: normal Judgment: judgment good Results POC Urinalysis 2 Dip (Clinic) Office Urine Glucose Negative Last Edit by Angle Gamboa on 03/22/25 11:01 Office Urine Protein Negative Last Edit by Angle Gamboa on 03/22/25 11:01 Coding Level of Care Code OB Routine Diagnoses Supervision of high risk in third trimester O09.93 Trimester: third trimester 33 weeks gestation of Z3A.33 Weeks of gestation: 33 weeks Rh negative status during in third trimester O26.893; Z67.91 Trimester: third trimester ADHD (attention deficit hyperactivity disorder) F90.9 Assessment and Plan Assessment and Plan (1) Supervision of high-risk : Status: Acute Qualifiers: Trimester: third trimester Qualified Code(s): O09.93 - Supervision of high risk , unspecified, third trimester Comment: PRR, , ROXANA 05/05/25, PC Angelo Elijah, Tony (2) : Status: Acute Qualifiers: Weeks of gestation: 33 weeks Qualified Code(s): Z3A.33 - 33 weeks gestation of Comment: declined NIPT & Carrier testing, nl anatomy (3) Rh negative status during : Status: Acute Qualifiers: Trimester: third trimester Qualified Code(s): O26.893 - Other specified related conditions, third trimester; Z67.91 - Unspecified blood type, Rh negative Comment: Rhogam 28 wks & PRN Bleeding. Given 02/11/25 (4) ADHD (attention deficit hyperactivity disorder): Status: Acute Orders: Orders POC Urinalysis 2 Dip (Clinic) Today Plan Details Additional Comments: ACOG trimester education reviewed and updated. see problem list details for updated plan management information and see below for orders placed at this visit. [place] appropriate handout given. Clinical Quality Measures Falls Risk Screening/Assistive Devices Have you fallen in the past year?: No 03/22/25 1109 <Electronically signed by Elizabeth stout CNM> Date _ Elizabeth Martin CNM Cosigner Signature: Date (if applicable) CC: ~ [facility] Work Phone: Reason for referral (narrative)* Outpatient Procedure (Routine) - Pending Review Specialty Diagnoses / Procedures Referred By Isaac velasco Referred To Contact [facility] Diagnoses Encounter for IUD removal Procedures REMOVE INTRAUTERINE DEVICE REMOVE INTRAUTERINE DEVICE Annelise Garland APRN.HARJEET [address] [place] [address] [facility] [address] [place] [address] Referral ID Status Reason Start Date Expiration Date Visits Requested Visits Authorized [id number] Pending Review Auto-Generat ed Referral 03/26/2024 03/26/2025 1 1 [facility] for referral (narrative)No reason for referral information [email or web address] [email or web address] Services Work Phone: Summary Purpose Family History Relationship Condition Age at Onset Recorded Date/T chavo grandfather Cardiac disease Unknown Malignant neoplasm Unknown Advance Directives Advance Directive Response Recorded Date/ Time Living Will Yes August 09 9:02pm Power of Body Press Operator No August 09, 2021 9:02pm Chief Complaint and Reason for Visit Chief Complaint Admit Date 17 wk ob December 02, 2024 2:54pm 22wk ob December 31, 2024 9:3 7am 26wk ob January 28, 2025 12: 44pm 28wk ob/glucose & rhogam February 11 9:47am 30 wk ob February 25, 2025 12:35p m 32 wk ob March 09, 2025 9:39a m Reason for Visit Admit Date ADHD (attention deficit hyperactivity di sorder) December 02, 2024 2:54pm December 02, 2024 2:54pm Rh negative status during Febr uary 2024 2:54pm Supervision of high-risk Febru naveed 2024 2:54pm ADHD (attention deficit hyperactivity di sorder) December 31, 2024 9:37am December 31, 2024 9:3 7am Rh negative status during [facility] 2024 9:37am Supervision of high-risk December 31, 2024 9:37am ADHD (attention deficit hyperactivity di sorder) January 28, 2025 12:44pm January 28, 2025 12: 44pm Rh negative status during [facility] 2024 12:44pm Supervision of high-risk January 28, 2025 12:44pm February 11, 2025 9:4 7am Rh negative status during [facility] 2024 9:47am Supervision of high-risk February 11, 2025 9:47am February 25, 2025 12:35p m Rh negative status during February 25, 2025 12:35pm Supervision of high-risk February 252024 12:35pm ADHD (attention deficit hyperactivity di sorder) March 09, 2025 9:39am March 09, 2025 9:39a m Rh negative status during March 09, 2025 9:39am Supervision of high-risk February 192024 9:39am Chief Complaint Admit Date 17 wk ob December 02, 2024 2:54pm 22wk ob December 31, 2024 9:3 7am 26wk ob January 28, 2025 12: 44pm 28wk ob/glucose & rhogam February 11 9:47am 30 wk ob February 25, 2025 12:35p m 32 wk ob March 09, 2025 9:39a m 34 wk ob March 22, 2025 10:54 am Reason for Visit Admit Date ADHD (attention deficit hyperactivity di sorder) December 02, 2024 2:54pm December 02, 2024 2:54pm Rh negative status during Febr uary 2024 2:54pm Supervision of high-risk Febru naveed 2024 2:54pm ADHD (attention deficit hyperactivity di sorder) December 31, 2024 9:37am December 31, 2024 9:3 7am Rh negative status during [facility] 2024 9:37am Supervision of high-risk December 31, 2024 9:37am ADHD (attention deficit hyperactivity di sorder) January 28, 2025 12:44pm January 28, 2025 12: 44pm Rh negative status during Apri l 2024 12:44pm Supervision of high-risk January 28, 2025 12:44pm February 11, 2025 9:4 7am Rh negative status during [facility] l 2024 9:47am Supervision of high-risk February 11, 2025 9:47am February 25, 2025 12:35p m Rh negative status during February 25, 2025 12:35pm Supervision of high-risk February 252024 12:35pm ADHD (attention deficit hyperactivity di sorder) March 09, 2025 9:39am March 09, 2025 9:39a m Rh negative status during March 09, 2025 9:39am Supervision of high-risk February 192024 9:39am ADHD (attention deficit hyperactivity di sorder) March 22, 2025 10:54am March 22, 2025 10:54 am Rh negative status during March 22, 2025 10:54am Supervision of high-risk March 22, 2025 10:54am Chief Complaint Admit Date 22wk ob December 31, 2024 9:3 7am 26wk ob January 28, 2025 12: 44pm 28wk ob/glucose & rhogam February 11 9:47am 30 wk ob February 25, 2025 12:35p m 32 wk ob March 09, 2025 9:39a m 34 wk ob March 22, 2025 10:54 am 36 wk ob April 08, 2025 3:46 pm Reason for Visit Admit Date ADHD (attention deficit hyperactivity di sorder) December 31, 2024 9:37am December 31, 2024 9:3 7am Rh negative status during [facility] 2024 9:37am Supervision of high-risk December 31, 2024 9:37am ADHD (attention deficit hyperactivity di sorder) January 28, 2025 12:44pm January 28, 2025 12: 44pm Rh negative status during [facility] 2024 12:44pm Supervision of high-risk January 28, 2025 12:44pm February 11, 2025 9:4 7am Rh negative status during [facility] 2024 9:47am Supervision of high-risk February 11, 2025 9:47am February 25, 2025 12:35p m Rh negative status during February 25, 2025 12:35pm Supervision of high-risk February 252024 12:35pm ADHD (attention deficit hyperactivity di sorder) March 09, 2025 9:39am March 09, 2025 9:39a m Rh negative status during March 09, 2025 9:39am Supervision of high-risk February 192024 9:39am ADHD (attention deficit hyperactivity di sorder) March 22, 2025 10:54am March 22, 2025 10:54 am Rh negative status during March 22, 2025 10:54am Supervision of high-risk March 22, 2025 10:54am ADHD (attention deficit hyperactivity di sorder) April 08, 2025 3:46pm April 08, 2025 3:46 pm Rh negative status during April 08, 2025 3:46pm Supervision of high-risk April 08, 2025 3:46pm Uterine size date discrepancy April 08, 2025 3:46pm Chief Complaint Admit Date 22wk ob December 31, 2024 9:3 7am 26wk ob January 28, 2025 12: 44pm 28wk ob/glucose & rhogam February 11 9:47am 30 wk ob February 25, 2025 12:35p m 32 wk ob March 09, 2025 9:39a m 34 wk ob March 22, 2025 10:54 am 36 wk ob April 08, 2025 3:46 pm SIZE DISCREPANCY April 14, 2025 11:4 0am 37 wk ob April 15, 2025 1:24 pm Reason for Visit Admit Date ADHD (attention deficit hyperactivity di sorder) December 31, 2024 9:37am December 31, 2024 9:3 7am Rh negative status during [facility] 2024 9:37am Supervision of high-risk December 31, 2024 9:37am ADHD (attention deficit hyperactivity di sorder) January 28, 2025 12:44pm January 28, 2025 12: 44pm Rh negative status during [facility] 2024 12:44pm Supervision of high-risk January 28, 2025 12:44pm February 11, 2025 9:4 7am Rh negative status during [facility] 2024 9:47am Supervision of high-risk February 11, 2025 9:47am February 25, 2025 12:35p m Rh negative status during February 25, 2025 12:35pm Supervision of high-risk February 252024 12:35pm ADHD (attention deficit hyperactivity di sorder) March 09, 2025 9:39am March 09, 2025 9:39a m Rh negative status during March 09, 2025 9:39am Supervision of high-risk February 192024 9:39am ADHD (attention deficit hyperactivity di sorder) March 22, 2025 10:54am March 22, 2025 10:54 am Rh negative status during March 22, 2025 10:54am Supervision of high-risk March 22, 2025 10:54am ADHD (attention deficit hyperactivity di sorder) April 08, 2025 3:46pm April 08, 2025 3:46 pm Rh negative status during April 08, 2025 3:46pm Supervision of high-risk April 08, 2025 3:46pm Uterine size date discrepancy April 08, 2025 3:46pm ADHD (attention deficit hyperactivity di sorder) April 15, 2025 1:24pm April 15, 2025 1:24 pm Rh negative status during April 15, 2025 1:24pm Supervision of high-risk April 15, 2025 1:24pm Uterine size date discrepancy April 15, 2025 1:24pm Reason for Visit Admit Date ADHD (attention deficit hyperactivity di sorder) December 31, 2024 9:37am December 31, 2024 9:3 7am Rh negative status during [facility] 2024 9:37am Supervision of high-risk December 31, 2024 9:37am ADHD (attention deficit hyperactivity di sorder) January 28, 2025 12:44pm January 28, 2025 12: 44pm Rh negative status during [facility] 2024 12:44pm Supervision of high-risk January 28, 2025 12:44pm February 11, 2025 9:4 7am Rh negative status during [facility] 2024 9:47am Supervision of high-risk February 11, 2025 9:47am February 25, 2025 12:35p m Rh negative status during February 25, 2025 12:35pm Supervision of high-risk February 252024 12:35pm ADHD (attention deficit hyperactivity di sorder) March 09, 2025 9:39am March 09, 2025 9:39a m Rh negative status during March 09, 2025 9:39am Supervision of high-risk February 192024 9:39am ADHD (attention deficit hyperactivity di sorder) March 22, 2025 10:54am March 22, 2025 10:54 am Rh negative status during March 22, 2025 10:54am Supervision of high-risk March 22, 2025 10:54am ADHD (attention deficit hyperactivity di sorder) April 08, 2025 3:46pm April 08, 2025 3:46 pm Rh negative status during April 08, 2025 3:46pm Supervision of high-risk April 08, 2025 3:46pm Uterine size date discrepancy April 08, 2025 3:46pm April 15, 2025 1:24 pm Rh negative status during April 15, 2025 1:24pm Supervision of high-risk April 15, 2025 1:24pm Uterine size date discrepancy April 15, 2025 1:24pm Chief Complaint Admit Date 22wk ob December 31, 2024 9:3 7am 26wk ob January 28, 2025 12: 44pm 28wk ob/glucose & rhogam February 11 9:47am 30 wk ob February 25, 2025 12:35p m 32 wk ob March 09, 2025 9:39a m 34 wk ob March 22, 2025 10:54 am 36 wk ob April 08, 2025 3:46 pm SIZE DISCREPANCY April 14, 2025 11:4 0am 37 wk ob April 15, 2025 1:24 pm 38 wk ob April 21, 2025 9:51a m Reason for Visit Admit Date ADHD (attention deficit hyperactivity di sorder) December 31, 2024 9:37am December 31, 2024 9:3 7am Rh negative status during [facility] 2024 9:37am Supervision of high-risk December 31, 2024 9:37am ADHD (attention deficit hyperactivity di sorder) January 28, 2025 12:44pm January 28, 2025 12: 44pm Rh negative status during [facility] 2024 12:44pm Supervision of high-risk January 28, 2025 12:44pm February 11, 2025 9:4 7am Rh negative status during [facility] 2024 9:47am Supervision of high-risk February 11, 2025 9:47am February 25, 2025 12:35p m Rh negative status during February 25, 2025 12:35pm Supervision of high-risk February 252024 12:35pm ADHD (attention deficit hyperactivity di sorder) March 09, 2025 9:39am March 09, 2025 9:39a m Rh negative status during March 09, 2025 9:39am Supervision of high-risk February 192024 9:39am ADHD (attention deficit hyperactivity di sorder) March 22, 2025 10:54am March 22, 2025 10:54 am Rh negative status during March 22, 2025 10:54am Supervision of high-risk March 22, 2025 10:54am ADHD (attention deficit hyperactivity di sorder) April 08, 2025 3:46pm April 08, 2025 3:46 pm Rh negative status during April 08, 2025 3:46pm Supervision of high-risk April 08, 2025 3:46pm Uterine size date discrepancy April 08, 2025 3:46pm April 15, 2025 1:24 pm Rh negative status during April 15, 2025 1:24pm Supervision of high-risk April 15, 2025 1:24pm Uterine size date discrepancy April 15, 2025 1:24pm ADHD (attention deficit hyperactivity di sorder) April 21, 2025 9:51am April 21, 2025 9:51a m Rh negative status during April 21, 2025 9:51am Supervision of high-risk April 21, 2025 9:51am Uterine size date discrepancy April 21, 2025 9:51am Chief Complaint Admit Date 22wk ob December 31, 2024 9:3 7am 26wk ob January 28, 2025 12: 44pm 28wk ob/glucose & rhogam February 11 9:47am 30 wk ob February 25, 2025 12:35p m 32 wk ob March 09, 2025 9:39a m 34 wk ob March 22, 2025 10:54 am 36 wk ob April 08, 2025 3:46 pm SIZE DISCREPANCY April 14, 2025 11:4 0am 37 wk ob April 15, 2025 1:24 pm 38 wk ob April 21, 2025 9:51a m 39 wk ob April 28, 2025 10:55 am Reason for Visit Admit Date ADHD (attention deficit hyperactivity di sorder) December 31, 2024 9:37am December 31, 2024 9:3 7am Rh negative status during [facility] 2024 9:37am Supervision of high-risk December 31, 2024 9:37am ADHD (attention deficit hyperactivity di sorder) January 28, 2025 12:44pm January 28, 2025 12: 44pm Rh negative status during [facility] 2024 12:44pm Supervision of high-risk January 28, 2025 12:44pm February 11, 2025 9:4 7am Rh negative status during [facility] 2024 9:47am Supervision of high-risk February 11, 2025 9:47am February 25, 2025 12:35p m Rh negative status during February 25, 2025 12:35pm Supervision of high-risk February 252024 12:35pm ADHD (attention deficit hyperactivity di sorder) March 09, 2025 9:39am March 09, 2025 9:39a m Rh negative status during March 09, 2025 9:39am Supervision of high-risk February 192024 9:39am ADHD (attention deficit hyperactivity di sorder) March 22, 2025 10:54am March 22, 2025 10:54 am Rh negative status during March 22, 2025 10:54am Supervision of high-risk March 22, 2025 10:54am ADHD (attention deficit hyperactivity di sorder) April 08, 2025 3:46pm April 08, 2025 3:46 pm Rh negative status during April 08, 2025 3:46pm Supervision of high-risk April 08, 2025 3:46pm Uterine size date discrepancy April 08, 2025 3:46pm April 15, 2025 1:24 pm Rh negative status during April 15, 2025 1:24pm Supervision of high-risk April 15, 2025 1:24pm Uterine size date discrepancy April 15, 2025 1:24pm ADHD (attention deficit hyperactivity di sorder) April 21, 2025 9:51am April 21, 2025 9:51a m Rh negative status during April 21, 2025 9:51am Supervision of high-risk April 21, 2025 9:51am Uterine size date discrepancy April 21, 2025 9:51am ADHD (attention deficit hyperactivity di sorder) April 28, 2025 10:55am April 28, 2025 10:55 am Rh negative status during April 28, 2025 10:55am Supervision of high-risk April 28, 2025 10:55am Uterine size date discrepancy April 28, 2025 10:55am Chief Complaint Admit Date wk ob December 31, 2024 9:3 7am wk ob January 28, 2025 12: 44pm 28wk ob/glucose & rhogam February 11 9:47am 30 wk ob February 25, 2025 12:35p m 32 wk ob March 09, 2025 9:39a m 34 wk ob March 22, 2025 10:54 am 36 wk ob April 08, 2025 3:46 pm SIZE DISCREPANCY April 14, 2025 11:4 0am 37 wk ob April 15, 2025 1:24 pm 38 wk ob April 21, 2025 9:51a m 39 wk ob April 28, 2025 10:55 am BRE April 28, 2025 12:05 pm Chief Complaint Admit Date wk ob January 28, 2025 12: 44pm 28wk ob/glucose & rhogam February 11 9:47am 30 wk ob February 25, 2025 12:35p m 32 wk ob March 09, 2025 9:39a m 34 wk ob March 22, 2025 10:54 am 36 wk ob April 08, 2025 3:46 pm SIZE DISCREPANCY April 14, 2025 11:4 0am 37 wk ob April 15, 2025 1:24 pm 38 wk ob April 21, 2025 9:51a m 39 wk ob April 28, 2025 10:55 am BRE April 28, 2025 12:05 pm BRE April 28, 2025 5:32p m 40 wk ob *Happy due date* May 05 9:47am Reason for Visit Admit Date ADHD (attention deficit hyperactivity di sorder) January 28, 2025 12:44pm January 28, 2025 12: 44pm Rh negative status during [facility] 2024 12:44pm Supervision of high-risk January 28, 2025 12:44pm February 11, 2025 9:4 7am Rh negative status during [facility] 2024 9:47am Supervision of high-risk February 11, 2025 9:47am February 25, 2025 12:35p m Rh negative status during February 25, 2025 12:35pm Supervision of high-risk February 252024 12:35pm ADHD (attention deficit hyperactivity di sorder) March 09, 2025 9:39am March 09, 2025 9:39a m Rh negative status during March 09, 2025 9:39am Supervision of high-risk February 192024 9:39am ADHD (attention deficit hyperactivity di sorder) March 22, 2025 10:54am March 22, 2025 10:54 am Rh negative status during March 22, 2025 10:54am Supervision of high-risk March 22, 2025 10:54am ADHD (attention deficit hyperactivity di sorder) April 08, 2025 3:46pm April 08, 2025 3:46 pm Rh negative status during April 08, 2025 3:46pm Supervision of high-risk April 08, 2025 3:46pm Uterine size date discrepancy April 08, 2025 3:46pm April 15, 2025 1:24 pm Rh negative status during April 15, 2025 1:24pm Supervision of high-risk April 15, 2025 1:24pm Uterine size date discrepancy April 15, 2025 1:24pm ADHD (attention deficit hyperactivity di sorder) April 21, 2025 9:51am April 21, 2025 9:51a m Rh negative status during April 21, 2025 9:51am Supervision of high-risk April 21, 2025 9:51am Uterine size date discrepancy April 21, 2025 9:51am ADHD (attention deficit hyperactivity di sorder) April 28, 2025 10:55am Tara 9th, 2025 10:55 am Rh negative status during April 28, 2025 10:55am Supervision of high-risk April 28, 2025 10:55am Uterine size date discrepancy April 28, 2025 10:55am ADHD (attention deficit hyperactivity di sorder) April 28, 2025 12:05pm April 28, 2025 12:05 pm Rh negative status during April 28, 2025 12:05pm Supervision of high-risk April 28, 2025 12:05pm Uterine size date discrepancy April 28, 2025 12:05pm ADHD (attention deficit hyperactivity di sorder) May 05, 2025 9:47am May 05, 2025 9:47 am Rh negative status during May 05, 2025 9:47am Supervision of high-risk May 05, 2025 9:47am Uterine size date discrepancy May 05, 2025 9:47am Chief Complaint Admit Date 26wk ob January 28, 2025 12: 44pm 28wk ob/glucose & rhogam February 11 9:47am 30 wk ob February 25, 2025 12:35p m 32 wk ob March 09, 2025 9:39a m 34 wk ob March 22, 2025 10:54 am 36 wk ob April 08, 2025 3:46 pm SIZE DISCREPANCY April 14, 2025 11:4 0am 37 wk ob April 15, 2025 1:24 pm 38 wk ob April 21, 2025 9:51a m 39 wk ob April 28, 2025 10:55 am BRE April 28, 2025 12:05 pm BRE April 28, 2025 5:32p m 40 wk ob *Happy due date* May 05 9:47am Membrane Sweep *per SM May 10, 2025 7 :59am Reason for Visit Admit Date ADHD (attention deficit hyperactivity di sorder) January 28, 2025 12:44pm January 28, 2025 12: 44pm Rh negative status during [facility] 2024 12:44pm Supervision of high-risk January 28, 2025 12:44pm February 11, 2025 9:4 7am Rh negative status during [facility] 2024 9:47am Supervision of high-risk February 11, 2025 9:47am February 25, 2025 12:35p m Rh negative status during February 25, 2025 12:35pm Supervision of high-risk February 252024 12:35pm ADHD (attention deficit hyperactivity di sorder) March 09, 2025 9:39am March 09, 2025 9:39a m Rh negative status during March 09, 2025 9:39am Supervision of high-risk February 192024 9:39am ADHD (attention deficit hyperactivity di sorder) March 22, 2025 10:54am March 22, 2025 10:54 am Rh negative status during March 22, 2025 10:54am Supervision of high-risk March 22, 2025 10:54am ADHD (attention deficit hyperactivity di sorder) April 08, 2025 3:46pm April 08, 2025 3:46 pm Rh negative status during April 08, 2025 3:46pm Supervision of high-risk April 08, 2025 3:46pm Uterine size date discrepancy April 08, 2025 3:46pm April 15, 2025 1:24 pm Rh negative status during April 15, 2025 1:24pm Supervision of high-risk April 15, 2025 1:24pm Uterine size date discrepancy April 15, 2025 1:24pm ADHD (attention deficit hyperactivity di sorder) April 21, 2025 9:51am April 21, 2025 9:51a m Rh negative status during April 21, 2025 9:51am Supervision of high-risk April 21, 2025 9:51am Uterine size date discrepancy April 21, 2025 9:51am ADHD (attention deficit hyperactivity di sorder) April 28, 2025 10:55am April 28, 2025 10:55 am Rh negative status during April 28, 2025 10:55am Supervision of high-risk April 28, 2025 10:55am Uterine size date discrepancy April 28, 2025 10:55am ADHD (attention deficit hyperactivity di sorder) April 28, 2025 12:05pm April 28, 2025 12:05 pm Rh negative status during April 28, 2025 12:05pm Supervision of high-risk April 28, 2025 12:05pm Uterine size date discrepancy April 28, 2025 12:05pm ADHD (attention deficit hyperactivity di sorder) May 05, 2025 9:47am May 05, 2025 9:47 am Rh negative status during May 05, 2025 9:47am Supervision of high-risk May 05, 2025 9:47am Uterine size date discrepancy May 05, 2025 9:47am ADHD (attention deficit hyperactivity di sorder) May 10, 2025 7:59am May 10, 2025 7:59 am Rh negative status during May 10, 2025 7:59am Supervision of high-risk May 10, 2025 7:59am Uterine size date discrepancy May 10, 2025 7:59am Additional Source Comments INFORMATION SOURCE (unrecogn ized section and content) DATE CREATED AUTHOR 01/24/2021 [facility] DATE CREATED AUTHOR AUTHOR'S ORGANIZ ATION 04/17/2024 [facility] DATE CREATED AUTHOR AUTHOR'S ORGANIZ ATION 12/26/2024 [facility] DATE CREATED AUTHOR AUTHOR'S ORGANIZ ATION 05/07/[address] [facility] Goals (unrecognized section and content) Goals may be documented in a n alternate sectionGoals may be documented in an alternate sectionGoals may be documented in an alternate sectionGoals may be documented in an alternate sectionGoals may be documented in an alternate sectionGoals may be documented in an alternate sectionGoals may be documented in an alternate sectionGoals may be documented in an alternate sectionGoals may be documented in an alternate sectionGoals may be documented in an alternate sectionGoals may be documented in an alternate sectionGoals may be documented in an alternate section Source Comments (unrecognize d section and content) In the event this informatio n is protected by the Federal Confidentiality of Alcohol and Drug Abuse Patient Records regulations: The Federal rules restrict any use of the information to criminally investigate or prosecute any alcohol or drug abuse patient.[facility] Center[facility] the event this information is protected by the Federal Confidentiality of Alcohol and Drug Abuse Patient Records regulations: The Federal rules restrict any use of the information to criminally investigate or prosecute any alcohol or drug abuse patient.[facility] Reason for Visit (unrecogniz ed section and content) Reason Comments Well Woman New Patient Reason Comments IUD Removal Specialty Diagnoses / Procedures Referred By Isaac velasco Referred To Contact [facility] Diagnoses Encounter for IUD removal Encounter for insertion of intrauterine contraceptive device Procedures REMOVE INTRAUTERINE DEVICE REMOVE INTRAUTERINE DEVICE INSERT INTRAUTERINE DEVICE Annelise Graland APRN.[facility] [address] [place] [address] [facility] [address] [place] [address] Referral ID Status Reason Start Date Expiration Date Visits Requested Visits Authorized [id number] Authorized Auto-Generat ed Referral 03/27/2024 10/20/2024 2 2 Care Teams (unrecognized sec tion and content) Team Status: Active Member Role Status Dates Dr. Griselda Alvarado MD Primary Care Provider Active Team Status: Inactive Member Role Status Dates Dr. Griselda Alvarado MD Primary Care Provider Active Start: December 31, 2024 End: December 31, 2024 Dr. Griselda Alvarado MD Referring Provider Active Start: December 31, 2024 End: December 31, 2024 Dr. Elle Stallings DO Attending Provider Activ e Start: December 31, 2024 End: December 31, 2024 Team Status: Inactive Member Role Status Dates Dr. Griselda Alvarado MD Primary Care Provider Active Start: January 28, 2025 End: January 28, 2025 Dr. Griselda Alvarado MD Referring Provider Active Start: January 28, 2025 End: January 28, 2025 Dr. Elle Stallings DO Attending Provider Activ e Start: January 28, 2025 End: January 28, 2025 Team Status: Inactive Member Role Status Dates Dr. Griselda Alvarado MD Primary Care Provider Active Start: February 11, 2025 End: February 11, 2025 Dr. Griselda Alvarado MD Referring Provider Active Start: February 11, 2025 End: February 11, 2025 Isabelle Matias DIVORCE ATTORNEY, DIVORCE ATTORNEY-C Attending Provider Active Start: February 11, 2025 End: February 11, 2025 Team Status: Inactive Member Role Status Dates Dr. Griselda Alvarado MD Primary Care Provider Active Start: February 11, 2025 End: February 11, 2025 Elizabeth Martin CNM Attending Provider Active S tart: February 11, 2025 End: February 11, 2025 Elizabeth Martin CNM Referring Provider Active S tart: February 11, 2025 End: February 11, 2025 Team Status: Inactive Member Role Status Dates Dr. Griselda Alvarado MD Primary Care Provider Active Start: February 25, 2025 End: February 25, 2025 Dr. Griselda Alvarado MD Referring Provider Active Start: February 25, 2025 End: February 25, 2025 Isabelle Matias NP, DIVORCE ATTORNEY-C Attending Provider Active Start: February 25, 2025 End: February 25, 2025 Team Status: Inactive Member Role Status Dates Dr. Griselda Alvarado MD Primary Care Provider Active Start: March 09, 2025 End: March 09, 2025 Dr. Griselda Alvarado MD Referring Provider Active Start: March 09, 2025 End: March 09, 2025 Elizabeth Martin CNM Attending Provider Active S tart: March 09, 2025 End: March 09, 2025 Team Status: Inactive Member Role Status Dates Dr. Griselda Alvarado MD Primary Care Provider Active Start: March 22, 2025 End: March 22, 2025 Dr. Griselda Alvarado MD Referring Provider Active Start: March 22, 2025 End: March 22, 2025 Elizabeth Martin CNM Attending Provider Active S tart: March 22, 2025 End: March 22, 2025 Team Status: Inactive Member Role Status Dates Dr. Griselda Alvarado MD Primary Care Provider Active Start: April 08, 2025 End: April 08, 2025 Dr. Griselda Alvarado MD Referring Provider Active Start: April 08, 2025 End: April 08, 2025 Elizabeth Martin CNM Attending Provider Active S tart: April 08, 2025 End: April 08, 2025 Team Status: Active Member Role Status Dates Dr. Griselda Alvarado MD Primary Care Provider Active Start: April 08, 2025 Elizabeth Martin CNM Attending Provider Active S tart: April 08, 2025 Elizabeth Martin CNM Referring Provider Active S tart: April 08, 2025 Team Status: Active Member Role Status Dates Dr. Griselda Alvarado MD Primary Care Provider Active Start: April 14, 2025 Elizabeth Martin CNM Attending Provider Active S tart: April 14, 2025 Elizabeth Martin CNM Referring Provider Active S tart: April 14, 2025 Team Status: Inactive Member Role Status Dates Dr. Griselda Alvarado MD Primary Care Provider Active Start: April 15, 2025 End: April 15, 2025 Dr. Griselda Alvarado MD Referring Provider Active Start: April 15, 2025 End: April 15, 2025 Isabelle Matias DIVORCE ATTORNEY, DIVORCE ATTORNEY-C Attending Provider Active Start: April 15, 2025 End: April 15, 2025 Team Status: Active Member Role Status Dates No Primary Care Physician Family Provider Active Dr. Griselda Alvarado MD Primary Care Provider Active Team Status: Inactive Member Role Status Dates Dr. Griselda Alvarado MD Primary Care Provider Active Start: December 02, 2024 End: December 02, 2024 Dr. Griselda Alvarado MD Referring Provider Active Start: December 02, 2024 End: December 02, 2024 Dr. Pamela Beebe MD Attending Provider Active Start: December 02, 2024 End: December 02, 2024 Team Status: Active Member Role/Relationship Status Dates Dr. Griselda Alvarado MD Primary Care Provider Active Team Status: Inactive Member Role/Relationship Status Dates Dr. Griselda Alvarado MD Primary Care Provider Active Start: December 31, 2024 End: December 31, 2024 Dr. Griselda Alvarado MD Referring Provider Active Start: December 31, 2024 End: December 31, 2024 Dr. Elle Stallings DO Attending Provider Activ e Start: December 31, 2024 End: December 31, 2024 Team Status: Inactive Member Role/Relationship Status Dates Dr. Grisedla Alvarado MD Primary Care Provider Active Start: January 28, 2025 End: January 28, 2025 Dr. Griselda Alvarado MD Referring Provider Active Start: January 28, 2025 End: January 28, 2025 Dr. Elle Stallings DO Attending Provider Activ e Start: January 28, 2025 End: January 28, 2025 Team Status: Inactive Member Role/Relationship Status Dates Dr. Griselda Alvarado MD Primary Care Provider Active Start: February 11, 2025 End: February 11, 2025 Dr. Griselda Alvarado MD Referring Provider Active Start: February 11, 2025 End: February 11, 2025 Isabelle Matias NP, DIVORCE ATTORNEY-C Attending Provider Active Start: February 11, 2025 End: February 11, 2025 Team Status: Inactive Member Role/Relationship Status Dates Dr. Griselda Alvarado MD Primary Care Provider Active Start: February 11, 2025 End: February 11, 2025 Elizabeth Martin CNM Attending Provider Active S tart: February 11, 2025 End: February 11, 2025 Elizabeth Martin CNM Referring Provider Active S tart: February 11, 2025 End: February 11, 2025 Team Status: Inactive Member Role/Relationship Status Dates Dr. Griselda Alvarado MD Primary Care Provider Active Start: February 25, 2025 End: February 25, 2025 Dr. Griselda Alvarado MD Referring Provider Active Start: February 25, 2025 End: February 25, 2025 Isabelle Matias NP, DIVORCE ATTORNEY-C Attending Provider Active Start: February 25, 2025 End: February 25, 2025 Team Status: Inactive Member Role/Relationship Status Dates Dr. Griselda Alvarado MD Primary Care Provider Active Start: March 09, 2025 End: March 09, 2025 Dr. Griselda Alvarado MD Referring Provider Active Start: March 09, 2025 End: March 09, 2025 Elizabeth Martin CNM Attending Provider Active S tart: March 09, 2025 End: March 09, 2025 Team Status: Inactive Member Role/Relationship Status Dates Dr. Griselda Alvarado MD Primary Care Provider Active Start: March 22, 2025 End: March 22, 2025 Dr. Griselda Alvarado MD Referring Provider Active Start: March 22, 2025 End: March 22, 2025 Elizabeth Martin CNM Attending Provider Active S tart: March 22, 2025 End: March 22, 2025 Team Status: Inactive Member Role/Relationship Status Dates Dr. Griselda Alvarado MD Primary Care Provider Active Start: April 08, 2025 End: April 08, 2025 Dr. Griselda Alvarado MD Referring Provider Active Start: April 08, 2025 End: April 08, 2025 Elizabeth Martin CNM Attending Provider Active S tart: April 08, 2025 End: April 08, 2025 Team Status: Inactive Member Role/Relationship Status Dates Dr. Griselda Alvarado MD Primary Care Provider Active Start: April 08, 2025 End: April 08, 2025 Elizabeth Martin CNM Attending Provider Active S tart: April 08, 2025 End: April 08, 2025 Elizabeth Martin CNM Referring Provider Active S tart: April 08, 2025 End: April 08, 2025 Team Status: Active Member Role/Relationship Status Dates Dr. Griselda Alvarado MD Primary Care Provider Active Start: April 14, 2025 Elizabeth Martin CNM Attending Provider Active S tart: April 14, 2025 Elizabeth Martin CNM Referring Provider Active S tart: April 14, 2025 Team Status: Inactive Member Role/Relationship Status Dates Dr. Griselda Alvarado MD Primary Care Provider Active Start: April 15, 2025 End: April 15, 2025 Dr. Griselda Alvarado MD Referring Provider Active Start: April 15, 2025 End: April 15, 2025 Isabelle Matias NP, DIVORCE ATTORNEY-C Attending Provider Active Start: April 15, 2025 End: April 15, 2025 Team Status: Inactive Member Role/Relationship Status Dates Dr. Griselda Alvarado MD Primary Care Provider Active Start: April 14, 2025 End: April 14, 2025 Elizabeth Martin CNM Attending Provider Active S tart: April 14, 2025 End: April 14, 2025 Eliazbeth Martin CNM Referring Provider Active S tart: April 14, 2025 End: April 14, 2025 Team Status: Inactive Member Role/Relationship Status Dates Dr. Griselda Alvarado MD Primary Care Provider Active Start: April 21, 2025 End: April 21, 2025 Dr. Griselda Alvarado MD Referring Provider Active Start: April 21, 2025 End: April 21, 2025 Dr. Elle Stallings DO Attending Provider Activ e Start: April 21, 2025 End: April 21, 2025 Team Status: Inactive Member Role/Relationship Status Dates Dr. Griselda Alvarado MD Primary Care Provider Active Start: April 28, 2025 End: April 28, 2025 Dr. Griselda Alvarado MD Referring Provider Active Start: April 28, 2025 End: April 28, 2025 Elizabeth Martin CNM Attending Provider Active S tart: April 28, 2025 End: April 28, 2025 Team Status: Inactive Member Role/Relationship Status Dates Dr. Griselda Alvarado MD Primary Care Provider Active Start: April 28, 2025 End: April 28, 2025 Dr. Elle Stallings DO Attending Provider Activ e Start: April 28, 2025 End: April 28, 2025 Dr. Elle Stallings DO Referring Provider Activ e Start: April 28, 2025 End: April 28, 2025 Team Status: Inactive Member Role/Relationship Status Dates Dr. Griselda Alvarado MD Primary Care Provider Active Start: January 28, 2025 End: January 28, 2025 Dr. Griselda Alvarado MD Referring Provider Active Start: January 28, 2025 End: January 28, 2025 Dr. Elle Stallings DO Attending Provider Activ e Start: January 28, 2025 End: January 28, 2025 Team Status: Inactive Member Role/Relationship Status Dates Dr. Griselda Alvarado MD Primary Care Provider Active Start: February 11, 2025 End: February 11, 2025 Dr. Griselda Alvarado MD Referring Provider Active Start: February 11, 2025 End: February 11, 2025 Isabelle Matias DIVORCE ATTORNEY, DIVORCE ATTORNEY-C Attending Provider Active Start: February 11, 2025 End: February 11, 2025 Team Status: Inactive Member Role/Relationship Status Dates Dr. Griselda Alvarado MD Primary Care Provider Active Start: February 11, 2025 End: February 11, 2025 Elizabeth Martin CNM Attending Provider Active S tart: February 11, 2025 End: February 11, 2025 Elizabeth Martin CNM Referring Provider Active S tart: February 11, 2025 End: February 11, 2025 Team Status: Inactive Member Role/Relationship Status Dates Dr. Griselda Alvarado MD Primary Care Provider Active Start: February 25, 2025 End: February 25, 2025 Dr. Griselda Alvarado MD Referring Provider Active Start: February 25, 2025 End: February 25, 2025 Isabelle Matias DIVORCE ATTORNEY, DIVORCE ATTORNEY-C Attending Provider Active Start: February 25, 2025 End: February 25, 2025 Team Status: Inactive Member Role/Relationship Status Dates Dr. Griselda Alvarado MD Primary Care Provider Active Start: March 09, 2025 End: March 09, 2025 Dr. Griselda Alvarado MD Referring Provider Active Start: March 09, 2025 End: March 09, 2025 Elizabeth Martin CNM Attending Provider Active S tart: March 09, 2025 End: March 09, 2025 Team Status: Inactive Member Role/Relationship Status Dates Dr. Griselda Alvarado MD Primary Care Provider Active Start: March 22, 2025 End: March 22, 2025 Dr. Griselda Alvarado MD Referring Provider Active Start: March 22, 2025 End: March 22, 2025 Elizabeth Martin CNM Attending Provider Active S tart: March 22, 2025 End: March 22, 2025 Team Status: Inactive Member Role/Relationship Status Dates Dr. Griselda Alvarado MD Primary Care Provider Active Start: April 08, 2025 End: April 08, 2025 Dr. Griselda Alvarado MD Referring Provider Active Start: April 08, 2025 End: April 08, 2025 Elizabeth Martin CNM Attending Provider Active S tart: April 08, 2025 End: April 08, 2025 Team Status: Inactive Member Role/Relationship Status Dates Dr. Griselda Alvarado MD Primary Care Provider Active Start: April 08, 2025 End: April 08, 2025 Elizabeth Martin CNM Attending Provider Active S tart: April 08, 2025 End: April 08, 2025 Elizabeth Martin CNM Referring Provider Active S tart: April 08, 2025 End: April 08, 2025 Team Status: Inactive Member Role/Relationship Status Dates Dr. Griselda Alvarado MD Primary Care Provider Active Start: April 14, 2025 End: April 14, 2025 Elizabeth Martin CNM Attending Provider Active S tart: April 14, 2025 End: April 14, 2025 Elizabeth Martin CNM Referring Provider Active S tart: April 14, 2025 End: April 14, 2025 Team Status: Inactive Member Role/Relationship Status Dates Dr. Griselda Alvarado MD Primary Care Provider Active Start: April 15, 2025 End: April 15, 2025 Dr. Griselda Alvarado MD Referring Provider Active Start: April 15, 2025 End: April 15, 2025 Isabelle Matias DIVORCE ATTORNEY, DIVORCE ATTORNEY-C Attending Provider Active Start: April 15, 2025 End: April 15, 2025 Team Status: Inactive Member Role/Relationship Status Dates Dr. Griselda Alvarado MD Primary Care Provider Active Start: April 21, 2025 End: April 21, 2025 Dr. Griselda Alvarado MD Referring Provider Active Start: April 21, 2025 End: April 21, 2025 Dr. Elle Stallings DO Attending Provider Activ e Start: April 21, 2025 End: April 21, 2025 Team Status: Inactive Member Role/Relationship Status Dates Dr. Griselda Alvarado MD Primary Care Provider Active Start: April 28, 2025 End: April 28, 2025 Dr. Griselda Alvarado MD Referring Provider Active Start: April 28, 2025 End: April 28, 2025 Elizabeth Martin CNM Attending Provider Active S tart: April 28, 2025 End: April 28, 2025 Team Status: Inactive Member Role/Relationship Status Dates Dr. Griselda Alvarado MD Primary Care Provider Active Start: April 28, 2025 End: April 28, 2025 Dr. Elle Stallings DO Attending Provider Activ e Start: April 28, 2025 End: April 28, 2025 Dr. Elle Stallings DO Referring Provider Activ e Start: April 28, 2025 End: April 28, 2025 Team Status: Active Member Role/Relationship Status Dates Dr. Griselda Alvarado MD Primary Care Provider Active Start: April 28, 2025 Dr. Elle Stallings DO Attending Provider Activ e Start: April 28, 2025 Dr. Elle Stallings DO Referring Provider Activ e Start: April 28, 2025 Dr. Elle Stallings DO Other Provider Active Start: April 28, 2025 Team Status: Inactive Member Role/Relationship Status Dates Dr. Griselda Alvarado MD Primary Care Provider Active Start: May 05, 2025 End: May 05, 2025 Dr. Griselda Alvarado MD Referring Provider Active Start: May 05, 2025 End: May 05, 2025 Dr. Pamela Beebe MD Attending Provider Active Start: May 05, 2025 End: May 05, 2025 Team Status: Inactive Member Role/Relationship Status Dates Dr. Griselda Alvarado MD Primary Care Provider Active Start: May 10, 2025 End: May 10, 2025 Dr. Griselda Alvarado MD Referring Provider Active Start: May 10, 2025 End: May 10, 2025 Dr. Elle Stallings DO Attending Provider Activ e Start: May 10, 2025 End: May 10, 2025 FOR RECORDS PERTAINING TO PATIENTS WHO ARE OR HAVE BEEN ENROLLED IN A CHEMICAL DEPENDENCY/SUBSTANCEABUSE PROGRAM, SOME INFORMATION MAY BE OMITTED. This clinical summary was aggregated from multiple sources. Caution should be exercised in using it in the provision of clinical care. This summary normalizes information from multiple sources, and as a consequence, information in this document may materially change the coding, format and clinical context of patient data. In addition, data may be omitted in some cases. CLINICAL DECISIONS SHOULD BE BASED ON THE PRIMARY CLINICAL RECORDS. [employer] provides no warranty or guarantee of the accuracy or completeness of information in this document.
[2025-05-11 04:14] LABS: Differential Indicated SCAN CRITERIA MET
[2025-05-11] MEDS: Oxytocin 15 Units/NS 250ml 15 UNITS/250 ML IV.SOLN 334 UNITS IV (04:40)
[2025-05-11 04:45] LABS: Differential Comment SCANNED; Red Cell Morphology NORM C+C NORMAL (NORM C&C)
[2025-05-11 04:47] LABS: Syphilis Antibodies Nonreactive (Nonreactive)
--- NOTE | 2025-05-11 04:59 | OB.VAGDELI_ITS ---
Assessment & Plan (1) Vaginal delivery: COMMENT: KW IAL boy 40.6 (2) Active labor at term: (3) Uterine size date discrepancy : COMMENT: 36 wk EFW 46%, AC 67% BRE 10 on 04/28 (4) Supervision of high-risk : QUALIFIERS: Trimester: third trimester Qualified Code(s): O09.93 - Supervision of high risk , unspecified, third trimester COMMENT: PRR, , ROXANA 05/05/25, PC Eljiah Stephens, Tony (5) : QUALIFIERS: Weeks of gestation: 40 weeks Qualified Code(s): Z3A.40 - 40 weeks gestation of COMMENT: Neg GBS. declined NIPT & Carrier testing, nl anatomy (6) Rh negative status during : QUALIFIERS: Trimester: third trimester Qualified Code(s): O26.893 - Other specified related conditions, third trimester; Z67.91 - Unspec ified blood type, Rh negative COMMENT: Rhogam 28 wks & PRN Bleeding. Given 02/11/25 (7) ADHD (attention deficit hyperactivity disorder): Maternal Data Information ROXANA Calculator Estimated Delivery Date Method Current WG Current Estimate 05/05/25 LMP (Certain) 40w 6d Other Estimates 05/07/25 Ultrasound #1 40w 4d Final ROXANA: 05/05/25 Final ROXANA Source: US >20 weeks Gestational age: 40.6 Vaginal Delivery Maternal Presentation Maternal Presentation: Active Labor Maternal Presentation: Presented to unit for active labor Vaginal Delivery Information Procedure Performed: Spontaneous Vaginal Delivery Surgeon/Practitioner: Elizabeth Martin Date of Procedure: 05/11/25 Pre-Procedure Diagnosis: see problem list Post-Procedure Diagnosis: same Type of anesthesia: Local with 1% Lidocaine Estimated Blood Loss: 200 Time of Delivery: 04:38 Findings Description of procedure: Progressed well to 10cm dilated and made steady progress with effective maternal pushing. Delivered the head in DORY presentation. The head was delivered atraumatically and a loose nuchal cord was identified and infant delivered through. The anterior and posterior shoulders delivered without complication followed by the rest of the infant and the infant was placed on the maternal abdomen. Delayed cord clamping was employed for approximately 3 minutes. Cord was clamped and cut and gentle traction was applied to the cord and the placenta delivered spontaneously. Immediately following, it was noted to be intact with a 3 vessel cord. Uterine bleeding stable. The perineum and vagina were inspected and noted to have a first degree laceration which was repaired with 3-0 Vicryl in the usual fashion. EBL was 200. Patient and infant tolerated delivery well. Apgars 9/9. Dr Oliveira notified of vaginal delivery and orders reviewed. Physician agrees with current plan of care. 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
--- NOTE | 2025-05-11 05:01 | DCINST_ITS ---
Discharge Instructions DC O2, CPAP, BIPAP needs Home O2 Discharge instructions: No Dressing / Incision Discharge Activity: Return to Normal Activity May resume sexual activity in: 6-8 weeks Dressing / Incision Call your doctor if you observe: Fever of 101 or Higher, Coldness, Increased Pain, Numbness or Tingling, Change in Color, Inability to urinate, Inability to have a bowel movement, Using more than 1 pad per hour, Shortness of breath, Dizziness, Fainting spells, Swelling in the ankles, Chest pain, Increased palpitations (irregular heartbeat), Calf discomfort and Uncontrolled pain Follow Up Care Please Follow Up With: Elizabeth Martin CNM When: Please call the office to schedule your follow up appointment in 6 weeks. If you had high blood pressure please call to schedule an appointment in 2 weeks. Test Results: Test results from this visit will be discussed in further detail at your follow- up appointment, if applicable. Discharge Plan Admission Admit Date/Time: 05/11/25 03:15 Attending Provider: Elizabeth Martin Primary Care Provider: Fredy Villafana Discharge Orders/Prescriptions Prescriptions: No Action PNV [id number] 400 mcg-35 mg- 25 mg-5 mg tablet,chewable 1 tab PO DAILY ondansetron HCl 4 mg tablet 4 mg PO Q4H Qty: 60 3RF Referrals / Follow Up: Fredy Villafana MD [Primary Care Provider] -
[2025-05-11] MEDS: Oxytocin 15 Units/NS 250ml 15 UNITS/250 ML IV.SOLN 83 UNITS IV (05:20)
[2025-05-11] MEDS: Rho(D) Immune Globulin 300 MCG (1500 Unit) Syringe IV (09:47)
[2025-05-12] VITALS (7 sets, daily range): BP systolic 92–112; BP diastolic 55–66; PULSE 55–68; RESP 16–18; TEMP 35.1–36.8; O2SAT 93–96
--- NOTE | 2025-05-12 06:14 | PCM.PN.OB ---
Subjective Subjective Patient doing well without complaints. Tolerating PO. Ambulating and voiding without difficulty. feeding well. Denies chest pain, shortness of breath, calf pain/swelling, fevers, chills, lightheadedness. Objective Data Objective Data Vital Signs: Vital Signs Temp Pulse Resp BP Pulse Ox O2 Del Method 97.7 F L 55 L 16 92/57 L 94 Room Air 05/12/25 04:32 05/12/25 04:33 05/12/25 04:32 05/12/25 04:33 05/12/25 04:33 05/12/25 04:32 Oxygen Delivery Method Room Air Weight: 162 lb 1 oz Body Mass Index (BMI) 25.4 Intake & Output: Intake and Output for Last 24 Hours 05/10/25 05/11/25 05/12/25 23:59 23:59 23:59 Intake Total 528.16 / 528.16 Output Total 200 / 200 Balance 328.16 / 328.16 Lab / Micro Data 05/11/25 03:35 Labs: Laboratory Results - last 24 hr 05/11/25 03:35: Antibody Screen NEGATIVE 05/11/25 06:46: Screen NEGATIVE, Baby's Blood Type O POSITIVE, Baby's JACKIE NEGATIVE ROS Constitutional Constitutional: Reports systems reviewed and no addt'l complaints, except as documented Cardiovascular Cardiovascular: Reports systems reviewed and no addt'l complaints, except as documented Respiratory/Chest Respiratory/Chest: Reports systems reviewed and no addt'l complaints, except as documented Gastrointestinal Gastrointestinal: Reports systems reviewed and no addt'l complaints, except as documented Physical Exam Const alert, oriented x3 and no apparent distress HEENT Head and Scalp: atraumatic Resp normal respiratory effort GI soft to palpation and non-tender Bimanual Exam - Vag & Uterus: uterus non-tender Uterus Palpation: uterus fundus firm (below Umbilicus) Assessment & Plan (1) Vaginal delivery: COMMENT: KW IAL boy 40.6 PLAN: Plan s/p PPD # 1 1. routine post delivery care 2. breast feeding- support given 3. rh neg rhogam prn 4. rubella immune
== END 2025-05-12 00:45 | disposition home or self-care (01) | DRG 807 ==
PROVIDERS: Admitting Provider Advanced Practice Midwife; PCP Family Medicine; Referring Provider Advanced Practice Midwife; Visit Provider Advanced Practice Midwife
DX: O48.0 Post-term pregnancy (principal); Z37.0 Single live birth; O99.343 Other mental disorders complicating pregnancy, third trimester; F90.9 Attention-deficit hyperactivity disorder, unspecified type; Z3A.40 40 weeks gestation of pregnancy; O26.843 Uterine size-date discrepancy, third trimester; O26.893 Other specified pregnancy related conditions, third trimester; O70.0 First degree perineal laceration during delivery; O69.81X0 Labor and delivery complicated by cord around neck, without compression, not applicable or unspecified
CPT/HCPCS: 59025; 59050; 85025; 85461; 86780; 86850; 86900; 86901; 90384; 99221; G0378; J2790; J2791

== ENCOUNTER → 2025-06-23 | Outpatient (CLI) | payer BC, SELFPAY ==
[2025-06-26 00:07] LABS: HPV APTIMA, High Risk Negative (Negative)
== END | disposition home or self-care (01) ==
LOC: LABSPEC 12:03
PROVIDERS: PCP Family Medicine; Visit Provider Advanced Practice Midwife
DX: Z12.4 Encounter for screening for malignant neoplasm of cervix (principal)
CPT/HCPCS: 87624; 88175; G0145